=== PATIENT | female | born 1955 | race Caucasian/White ===

== ENCOUNTER → 2018-02-28 16:24 | Outpatient (CLI) | payer OTHER, SELFPAY ==
--- NOTE | 2018-02-28 16:28 | DI.US.S_ITS ---
PROCEDURE: US ABDOMEN COMPLETE INDICATIONS: ABDOMINAL PAIN TECHNIQUE: Real-time scanning was performed of the abdominal and retroperitoneal organs, with image documentation. COMPARISON: [facility], CT, CT ABD PELVIS W CON, 09/23/2016, 13:20. FINDINGS: Liver: Liver is diffusely increased in echogenicity. No focal hepatic abnormalities identified. Normal hepatic size. Gallbladder: Gallbladder surgically absent. Biliary ducts: Intrahepatic bile ducts are non-dilated. Extrahepatic bile duct caliber measures 1.1 mm. Normal is 6-7 mm or less in diameter, or 10 mm or less post-cholecystectomy. Pancreas: Visualized portions of the pancreas are sonographically normal. Spleen: Spleen is normal in size and homogeneous in echotexture. Kidneys: Kidneys are normal in size and echotexture. Right kidney measures 11.1 cm long; left kidney measures 11.2 cm long. No hydronephrosis or nephrolithiasis. No solid masses. Aorta: Not visualized. [place]: Not visualized. IVC: Not visualized. Miscellaneous: No free abdominal fluid. IMPRESSION: 1. Increased hepatic echogenicity noted possibly related to hepatic steatosis but other sources of hepatocellular disease cannot be excluded. Recommend clinical correlation. 2. No source for abdominal pain identified. Dictated by: Paco KELLY Interpreted: Apryl Sexton MD on 02/28/2018 at 17:05 Approved by: Apryl Sexton MD, PhD on 02/28/2018 at 17:37
== END ==
PROVIDERS: Family Provider Family Medicine; PCP Family Medicine; Visit Provider Family Medicine
DX: R10.9 Unspecified abdominal pain (principal)
CPT/HCPCS: 76700

== ENCOUNTER → 2020-10-05 10:34 | Outpatient (ROUT) | payer OTHER, SELFPAY ==
[2020-10-05 10:43] LABS: INR 1.6 (0.9-1.3); Prothrombin Time 18.7 SECONDS (10.1-12.7)
== END ==
PROVIDERS: Visit Provider Family Medicine
DX: I48.91 Unspecified atrial fibrillation (principal)
CPT/HCPCS: 85610

== ENCOUNTER → 2021-12-03 12:39 | Outpatient (CLI) | payer OTHER, SELFPAY ==
--- NOTE | 2021-12-03 | DI.RAD.S_ITS ---
PROCEDURE: XR THORACIC SPINE 3V INDICATIONS: BACK PAIN TECHNIQUE: 3 views of the thoracic spine were acquired. COMPARISON: None. FINDINGS: Bones: No fractures or dislocations. There is [id number] kyphosis centered at T8 level. Degenerative endplate changes are noted throughout mid to lower thoracic spine. No suspicious bony lesions. 12 pairs of ribs are noted, and appear intact where visualized. Soft tissues: No paravertebral stripe thickening. IMPRESSION: Degenerative disc disease throughout thoracic spine with [id number] kyphosis. No acute compression fracture or spondylolisthesis. Prior lower cervical spine fusion. Dictated by: Reynold Barnard M.D. on 12/03/2021 at 14:02 Approved by: Reynold Barnard M.D. on 12/03/2021 at 14:05
--- NOTE | 2021-12-03 | DI.RAD.S_ITS ---
PROCEDURE: XR LUMBAR SPINE 2-3V INDICATIONS: Low back pain, unspecified TECHNIQUE: 3 views of the lumbar spine were acquired. COMPARISON: None. FINDINGS: Bones: 5 [id number] vertebrae are present. There is 5 mm anterolisthesis of L4 on L5. Degenerative endplate changes and bilateral facet arthrosis throughout lumbar spine is seen. No vertebral body compression fractures. No suspicious bony lesions. Soft tissues: Overlying bowel gas pattern is normal. No suspicious soft tissue calcifications. IMPRESSION: Degenerative disc disease throughout lumbar spine. Grade 1 anterolisthesis of L4 on L5. No acute compression fracture. Dictated by: Reynold Barnard M.D. on 12/03/2021 at 13:55 Approved by: Reynold Barnard M.D. on 12/03/2021 at 14:02
== END ==
PROVIDERS: PCP Family Medicine; Referring Provider Family Medicine; Visit Provider Family Medicine
DX: M51.36 Other intervertebral disc degeneration, lumbar region (principal); M43.16 Spondylolisthesis, lumbar region; M51.34 Other intervertebral disc degeneration, thoracic region; M40.204 Unspecified kyphosis, thoracic region; M54.50 Low back pain, unspecified; Z98.1 Arthrodesis status
CPT/HCPCS: 72072; 72100

== ENCOUNTER 2022-05-11 09:27 | Emergency (ER) | payer OTHER, SELFPAY ==
[2022-05-11] VITALS (12 sets, daily range): BP systolic 101–148; BP diastolic 63–79; PULSE 68–98; RESP 18–27; TEMP 36.6; O2SAT 95–97; BMI 36.6
--- NOTE | 2022-05-11 09:33 | DI.RAD.S_ITS ---
PROCEDURE: XR CHEST 2V INDICATIONS: chest / back TECHNIQUE: 2 views of the chest were acquired. COMPARISON: [facility], CR, XR CHEST 1 VIEW, 04/24/2019, 6:06. [facility], CR, CHEST 2 VIEW, 05/30/2017, 15:35. [facility], CR, CHEST 1 VIEW, 01/19/2012, 0:15. FINDINGS: Surgical changes and devices: Median sternotomy wires. Lungs and pleura: Small left pleural effusion. No definite suspicious focal airspace opacity. No pneumothorax. Mediastinum: Cardiac silhouette is mildly enlarged. Bones and chest wall: No suspicious bony abnormalities. Soft tissues appear unremarkable. IMPRESSION: 1. Cardiac silhouette is enlarged without definite evidence of pulmonary vascular congestion. 2. Small left pleural effusion, nonspecific. Dictated by: Mars Rodgers M.D. on 05/11/2022 at 12:58 Approved by: Mars Rodgers M.D. on 05/11/2022 at 13:02
--- NOTE | 2022-05-11 09:50 | ED.BACK ---
HPI - Back Pain/Injury General Chief Complaint: Back Pain/Injury Stated Complaint: Back pain/ chest pain Time Seen by Provider: 05/11/22 09:31 Source: patient History of Present Illness HPI Narrative: 66F nonsmoker with history of HTN, hyperlipidemia, CAD presents by EMS for evaluation of severe and sudden onset mid back pain with radiation to her chest and up into her neck. She states that she was in her normal state of health when she went to bed and even upon waking today but then developed the pain as described. She states that it seems to be worse when she moves and improves with rest but feels different than her normal musculoskeletal back pain which apparently requires a thoracic fusion for degenerative disc disease. She denies associated symptoms such as dizziness, weakness or lightheadedness. She denies any nausea, vomiting or diarrhea. She denies any exertional symptoms or recent exercise intolerance. She denies recent trauma or injury. She denies any blurred vision or trouble with speech. She has no numbness, tingling or weakness of her extremities. She denies any trouble controlling bowel or bladder. Related Data Home Medications Medication Instructions Recorded Confirmed ALPRAZOLAM 0.25 mg PO TID PRN ##0 01/31/10 AMLODIPINE BESYLATE (NORVASC) 10 mg PO HS ##0 01/31/10 Diphenhydramine Hydrochloride PRN ##0 01/31/10 (Benadryl) Metoprolol Tartrate (Lopressor) 50 mg PO BID ##0 01/31/10 OFLOXACIN (Ocuflox) 2 gtt OPHTH Q DAY ##0 01/31/10 lisinopril 5 mg tablet 5 mg PO QDAY ##0 01/18/12 ondansetron 4 mg disintegrating 4 mg PO TID ##0 01/18/12 tablet losartan 50 mg tablet PO QDAY ##0 02/02/16 Previous Rx's Medication Instructions Recorded hydrocodone 5 mg-acetaminophen 325 1 tab PO Q4-6H PRN pain #10 tabs 05/11/22 mg tablet Allergies Allergy/AdvReac Type Severity Reaction Status Date / Time codeine [CODEINE] Allergy Unknown Unverified 10/04/17 13:03 epinephrine [EPINEPHRINE] Allergy Unknown Unverified 10/04/17 13:03 Review of Systems Review of Systems Narrative: GENERAL: See HPI. HEENT: Denies sinus pain, ear pain, sore throat, difficulty swallowing, dizziness. RESPIRATORY: See HPI CARDIOVASCULAR: See HPI GASTROINTESTINAL: See HPI : Denies dysuria, frequency, incontinence, hematuria, urinary retention. MUSCULOSKELETAL: denies weakness, joint pain, or bony pain SKIN: Denies rash, skin lesions, or other NEUROLOGIC: Denies weakness, headache, numbness, change in speech, confusion, seizures, incoordination. PSYCHIATRIC: No concerning psychosocial issues. 12 point review of systems is negative except for those stated above Exam Narrative Exam Narrative: GENERAL: [66] year old patient appears stated age. Well-developed patient, in mild distress. HEAD: Atraumatic. Normocephalic. EYES: Pupils equal round and reactive. Extraocular motions intact. No scleral icterus. No injection or drainage. ENT: Nose without bleeding, purulent drainage. Throat without erythema, tonsillar hypertrophy or exudate. Airway patent. NECK: Trachea midline. Non tender CARDIOVASCULAR: Regular rate and rhythm without murmurs, gallops, or rubs. RESPIRATORY: Clear to auscultation. Breath sounds equal bilaterally. No wheezes, rales, or rhonchi. GASTROINTESTINAL: Abdomen soft, non-tender, nondistended. EXTREMITIES: No edema or joint tenderness. BACK: Nontender without deformity or crepitance. No flank tenderness. NEURO: AOx3. SKIN: No rash or erythema of visible areas Initial Vital Signs Initial Vital Signs: Vital Signs Temperature 97.9 F 05/11/22 09:37 Pulse Rate 98 H 05/11/22 09:37 Respiratory Rate 18 05/11/22 09:37 Blood Pressure 132/73 05/11/22 09:37 Pulse Oximetry 97 05/11/22 09:37 Oxygen Delivery Method 05/11/22 09:37 Course Orders Ordered: ED Orders 05/11/22 09:33 Chest [XR chest 2V] Stat 05/11/22 09:46 Covid-19 + FLU A/B + RSV - PCR Stat 05/11/22 09:50 EKG-12 Lead Stat 05/11/22 09:56 CT angio chest abdomen pelvis Stat 05/11/22 11:05 C-Reactive Protein Quant Stat Complete Blood Count AUTO DIFF Stat Comprehensive Metabolic Panel Stat D Dimer Stat NT-proBNP (BNP-Adult 18+) Stat Troponin & CK Cardiac Panel Stat 05/11/22 13:25 Troponin & CK Cardiac Panel Stat Vital Signs Vital signs: Vital Signs - 8 hr 05/11/22 09:37 05/11/22 09:41 05/11/22 12:39 Temperature 97.9 F Pulse Rate 98 H 86 68 Respiratory Rate 18 25 H 27 H Blood Pressure 132/73 Pulse Oximetry 97 96 97 Oxygen Delivery Method Room Air 05/11/22 12:40 05/11/22 12:40 05/11/22 13:00 Temperature Pulse Rate 75 70 Respiratory Rate 20 19 Blood Pressure 120/65 Pulse Oximetry 97 96 Oxygen Delivery Method 05/11/22 13:01 05/11/22 13:01 05/11/22 13:30 Temperature Pulse Rate 73 77 Respiratory Rate 20 25 H Blood Pressure 101/63 Pulse Oximetry 96 97 Oxygen Delivery Method 05/11/22 13:31 05/11/22 13:31 Temperature Pulse Rate 78 Respiratory Rate 26 H Blood Pressure 148/71 H Pulse Oximetry 97 Oxygen Delivery Method MDM - Back Pain/Injury Lab Data Result diagrams: 05/11/22 11:05 05/11/22 11:05 Labs: Lab Results 05/11/22 05/11/22 05/11/22 Range/Units 09:46 11:05 11:05 WBC 8.3 (4.5-11.0) X10^3/uL RBC 4.32 (4.0-5.2) X10^6/uL Hgb 12.9 (12.0-16.0) g/dL Hct 39.0 (36-46) % MCV 90.1 (80-100) fL MCH 29.7 (26-34) PG MCHC 33.0 (30-36) % RDW 17.5 H (11.6-14.8) % Plt Count 290 (150-400) X10^3/uL Neut % (Auto) 67.9 (50-75) % Lymph % (Auto) 22.7 L (25-40) % [place] % (Auto) 7.4 (3-14) % Eos % (Auto) 1.0 L (2-4) % Baso % (Auto) 1.0 (0-2) % Neut # (Auto) 5600 (3101-6528) /uL Lymph # (Auto) 1900 (8761-1491) /uL [place] # (Auto) 600 (0-900) /uL Eos # (Auto) 100 (0-450) /uL Baso # (Auto) 100 (0-100) /uL D-Dimer 828 H (<500) ng/ml Sodium (137-145) mmol/L Potassium (3.4-5.1) mmol/L Chloride (98-107) mmol/L Carbon Dioxide (22-32) mmol/L BUN (7-17) mg/dL Creatinine (0.52-1.04) mg/dL Estimated GFR (>60) mL/min BUN/Creatinine Ratio (6-22) Glucose (80-110) mg/dL Calcium (8.4-10.2) mg/dL Total Bilirubin (0.2-1.3) mg/dL AST (14-36) IU/L ALT (<35) IU/L Alkaline Phosphatase (38-126) U/L Total Creatine Kinase (30-135) U/L CK-MB (CK-2) CK-MB (CK-2) Rel Index Troponin I (0.01-0.034) ng/mL C-Reactive Protein (<1.0) mg/dL NT-Pro-B Natriuret Pep (<125) pg/mL Total Protein (6.3-8.2) g/dL Albumin (3.5-5.0) g/dL Globulin (1.7-4.1) g/dL Albumin/Globulin Ratio (1.0-2.8) SARS-CoV-2 (PCR) Negative (Negative) Influenza A (RT-PCR) Flu a negative (NEGATIVE) Influenza B (RT-PCR) Flu b negative (NEGATIVE) RSV (PCR) Negative (Negative) 05/11/22 05/11/22 05/11/22 Range/Units 11:05 11:05 13:25 WBC (4.5-11.0) X10^3/uL RBC (4.0-5.2) X10^6/uL Hgb (12.0-16.0) g/dL Hct (36-46) % MCV (80-100) fL MCH (26-34) PG MCHC (30-36) % RDW (11.6-14.8) % Plt Count (150-400) X10^3/uL Neut % (Auto) (50-75) % Lymph % (Auto) (25-40) % [place] % (Auto) (3-14) % Eos % (Auto) (2-4) % Baso % (Auto) (0-2) % Neut # (Auto) (7865-1504) /uL Lymph # (Auto) (8490-6340) /uL [place] # (Auto) (0-900) /uL Eos # (Auto) (0-450) /uL Baso # (Auto) (0-100) /uL D-Dimer (<500) ng/ml Sodium 141 (137-145) mmol/L Potassium 4.1 (3.4-5.1) mmol/L Chloride 104 (98-107) mmol/L Carbon Dioxide 23 (22-32) mmol/L BUN 13 (7-17) mg/dL Creatinine 0.73 (0.52-1.04) mg/dL Estimated GFR > 60 (>60) mL/min BUN/Creatinine Ratio 17.8 (6-22) Glucose 147 H (80-110) mg/dL Calcium 9.1 (8.4-10.2) mg/dL Total Bilirubin 0.7 (0.2-1.3) mg/dL AST 25 (14-36) IU/L ALT 20 (<35) IU/L Alkaline Phosphatase 122 (38-126) U/L Total Creatine Kinase 52 49 (30-135) U/L CK-MB (CK-2) TNP TNP CK-MB (CK-2) Rel Index TNP TNP Troponin I < 0.012 < 0.012 (0.01-0.034) ng/mL C-Reactive Protein 2.0 H (<1.0) mg/dL NT-Pro-B Natriuret Pep 754 H (<125) pg/mL Total Protein 8.4 H (6.3-8.2) g/dL Albumin 4.2 (3.5-5.0) g/dL Globulin 4.2 H (1.7-4.1) g/dL Albumin/Globulin Ratio 1.0 (1.0-2.8) SARS-CoV-2 (PCR) (Negative) Influenza A (RT-PCR) (NEGATIVE) Influenza B (RT-PCR) (NEGATIVE) RSV (PCR) (Negative) Urine Dip Bedside Urine Glucose Negative Bedside Urine Bilirubin - Negative Bedside Urine Ketone - Negative Urine Specific [place] 1.015 Bedside Urine Occult Blood - Negative Bedside Urine pH 6.5 Bedside Urine Protein - Negative Bedside Urine Urobilinogen - Negative Bedside Urine Nitrite - Negative Bedside Urine Leukocytes - Negative Esterase Imaging Data CT scan - chest: Radiologist's Impression: Jessenia Peres??66??F??1955 ? Allergy/Adv: codeine, epinephrine Close Chest/Abdomen/Pelvis CTA (Signed) Jonatan Cox - 05/11/22 Chest X-Ray (Signed) Mars Rodgers - 05/11/22 Thoracic Spine X-Ray (Signed) Reynold Barnard - 12/03/21 Lumbar Spine X-Ray (Signed) Reynold Barnard - 12/03/21 Abdomen Ultrasound (Signed) Apryl Sexton - 02/28/18 [place] [address] CT Scan Report Signed Patient: Jessenia Peres MR#: [id number] : 1955 Acct:[id number] Age/Sex: 66 / F Date of Service: 05/11/22 Loc: ED Accession Number: [id number] ?? Procedure: CT angio chest abdomen pelvis Ordering Provider: Mehdi Mendoza D.O. PROCEDURE:? CT ANGIO CHEST ABDOMEN PELVIS ? INDICATIONS:? severe chest, back pain, radiation to neck ? TECHNIQUE:? Precontrast 5 mm thick sections acquired from the lung apices to the iliac crests.? After the administration of intravenous contrast, 2.5 mm thick sections again acquired from the lung apices to the iliac crests.? Maximum intensity projection (MIP) oblique sagittal and coronal reformats were then acquired.? For radiation dose reduction, the following was used:? automated exposure control.? ? COMPARISON:? [facility], CT, CT ANGIO CHEST PE, 06/15/2018, 13:14. ? FINDINGS:? Image quality:? Excellent.? ? AORTA:? There is severe plaque within the abdominal aorta causing mild diffuse stenosis.? No aneurysm, or dissection. ? CHEST:? Lungs and pleura:? There is mild left greater than right bibasilar ground-glass and reticulonodular pulmonary opacity.? No pneumothorax.? Small left pleural effusion.? Central and peripheral airways are patent and normal in caliber.? ? Mediastinum:? Heart size is normal.? Severe calcification of the coronary vasculature.? No pericardial effusion.? No mediastinal or hilar adenopathy by size criteria.? Central pulmonary arteries are normal in size.? Esophagus is normal in caliber.? No hiatal hernias.? ? Bones and chest wall:? No axillary adenopathy by size criteria.? Thyroid gland is within normal limits .? No suspicious bony lesions.? No vertebral body compression fractures.? ? ? ABDOMEN:? Vasculature:? Celiac trunk and mesenteric arteries are patent.? Renal arteries are also patent.? ? Solid organs:? Liver is normal in size and enhancement.? Gallbladder is surgically absent .? Biliary system is non dilated.? Pancreas enhances normally.? Spleen is normal in size and enhancement.? No adrenal nodules.? Both kidneys are normal in size and enhancement, without hydronephrosis.? ? Peritoneum and bowel:? No free fluid or air.? Bowel loops are normal in caliber and wall thickness.? Normal appendix. ? Nodes and vessels:? No retroperitoneal or mesenteric adenopathy by size criteria.? Inferior vena cava is normal in morphology.? ? Miscellaneous:? No ventral hernias.? ? ? PELVIS:? Genitourinary:? Bladder wall thickness is normal.? ? Miscellaneous:? No inguinal hernias or adenopathy.? No ventral hernias.? ? Bones:? No suspicious bony lesions.? No vertebral body compression fractures.? ? ? IMPRESSION:? 1. No acute process involving the thoracoabdominal aorta. 2. Left greater than right bibasilar atelectasis versus pneumonia.? Small left pleural effusion. 3. Coronary artery disease. ? Dictated by: Jonatan Cox M.D. on 05/11/2022 at 13:02 ? ? Approved by: Jonatan Cox M.D. on 05/11/2022 at 13:06 ? MDM Narrative Medical decision making narrative: Multiple etiologies for patient's symptoms considered including: [Musculoskeletal pain versus dissection versus pulmonary embolism versus cardiac ischemia versus other Multiple causes of chest pain considered including ME, PE, pneumothorax, pneumonia, aortic dissection, and pleurisy. Patient reports no radiation, no diaphoresis, no provocation with exertion, and no vomiting] Patient's symptoms improved over duration of stay with above-stated therapies. Findings and discharge diagnosis discussed with patient/family followed by verbalization of understanding Return precautions discussed with patient/family whom verbalize understanding. Discharge Plan Departure Patient Disposition: Home Clinical Impression: Mid back pain Instructions: DI for Thoracic Back Pain Activity Restrictions/Additional Instructions: *You have been diagnosed with [midthoracic back pain. As we discussed your history and physical exam as well as labs and imaging are very reassuring and there is no evidence of heart attack, blood clot, dissection of your blood vessels or other significant diagnosis requiring a specific immediate intervention] *What to do: *Please continue to take your regular medications as directed. [x ] New medication prescriptions sent to your pharmacy: [ [facility] in [place]] [ ] New medication written as a paper prescription [ ] No new medications given *Please follow up with your primary care provider in 2-3 days, call for an appointment. Let them know you were seen in the Emergency Department and that we ask that you be seen in follow up. We will electronically transmit a record of today's note if your PCP is in our system *Return to Emergency Department if you should have any new, worsening or concerning symptoms, such as [fever greater than 101 F, shaking chills, worsening pain, persistent vomiting or other bothersome symptoms] You have been prescribed a short course of narcotic medications. These are potentially dangerous and addictive medications that should be used carefully. While on these medications you cannot drive or operate heavy machinery. Additionally, you cannot sign legal documents or perform any duties such as this. 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 Please understand that we cannot provide further refills of narcotics or controlled substances through the ED and your pain management will need to be through your Primary Care Provider Prescriptions: New hydrocodone-acetaminophen 5-325 mg tablet 1 tab PO Q4-6H PRN (Reason: pain) Qty: 10 0RF No Action ALPRAZOLAM 0.25 mg PO TID PRN Qty: 0 AMLODIPINE BESYLATE (NORVASC) 10 mg PO HS Qty: 0 Diphenhydramine Hydrochloride (Benadryl) PRN Qty: 0 Metoprolol Tartrate (Lopressor) 50 mg PO BID Qty: 0 OFLOXACIN (Ocuflox) 2 gtt OPHTH Q DAY Qty: 0 lisinopril 5 MG tablet 5 mg PO QDAY Qty: 0 ondansetron 4 MG tablet,disintegrating 4 mg PO TID Qty: 0 losartan 50 mg tablet PO QDAY Qty: 0 Referrals: Evelio Matos MD [Primary Care Provider] -
--- NOTE | 2022-05-11 09:56 | DI.CT.S_ITS ---
PROCEDURE: CT ANGIO CHEST ABDOMEN PELVIS INDICATIONS: severe chest, back pain, radiation to neck TECHNIQUE: Precontrast 5 mm thick sections acquired from the lung apices to the iliac crests. After the administration of intravenous contrast, 2.5 mm thick sections again acquired from the lung apices to the iliac crests. Maximum intensity projection (MIP) oblique sagittal and coronal reformats were then acquired. For radiation dose reduction, the following was used: automated exposure control. COMPARISON: [facility], CT, CT ANGIO CHEST PE, 06/15/2018, 13:14. FINDINGS: Image quality: Excellent. AORTA: There is severe plaque within the abdominal aorta causing mild diffuse stenosis. No aneurysm, or dissection. CHEST: Lungs and pleura: There is mild left greater than right bibasilar ground-glass and reticulonodular pulmonary opacity. No pneumothorax. Small left pleural effusion. Central and peripheral airways are patent and normal in caliber. Mediastinum: Heart size is normal. Severe calcification of the coronary vasculature. No pericardial effusion. No mediastinal or hilar adenopathy by size criteria. Central pulmonary arteries are normal in size. Esophagus is normal in caliber. No hiatal hernias. Bones and chest wall: No axillary adenopathy by size criteria. Thyroid gland is within normal limits . No suspicious bony lesions. No vertebral body compression fractures. ABDOMEN: Vasculature: Celiac trunk and mesenteric arteries are patent. Renal arteries are also patent. Solid organs: Liver is normal in size and enhancement. Gallbladder is surgically absent . Biliary system is non dilated. Pancreas enhances normally. Spleen is normal in size and enhancement. No adrenal nodules. Both kidneys are normal in size and enhancement, without hydronephrosis. Peritoneum and bowel: No free fluid or air. Bowel loops are normal in caliber and wall thickness. Normal appendix. Nodes and vessels: No retroperitoneal or mesenteric adenopathy by size criteria. Inferior vena cava is normal in morphology. Miscellaneous: No ventral hernias. PELVIS: Genitourinary: Bladder wall thickness is normal. Miscellaneous: No inguinal hernias or adenopathy. No ventral hernias. Bones: No suspicious bony lesions. No vertebral body compression fractures. IMPRESSION: 1. No acute process involving the thoracoabdominal aorta. 2. Left greater than right bibasilar atelectasis versus pneumonia. Small left pleural effusion. 3. Coronary artery disease. Dictated by: Jonatan Cox M.D. on 05/11/2022 at 13:02 Approved by: Jonatan Cox M.D. on 05/11/2022 at 13:06
[2022-05-11 11:08] LABS: Add Manual Diff / Slide Review NO; Basophils Absolute Auto 100 /uL (0-100); Eosinophils Absolute Auto 100 /uL (0-450); Hemoglobin 12.9 g/dL (12.0-16.0); Lymphocytes Absolute Auto 1900 /uL (1100-4500); Lymphocytes Percent Auto 22.7 % (25-40); Mean Corpuscular Hemoglobin 29.7 PG (26-34); Mean Corpuscular Volume 90.1 fL (80-100); Monocytes Absolute Auto 600 /uL (0-900); Monocytes Percent Auto 7.4 % (3-14); Neutrophils Absolute Auto 5600 /uL (1500-7000); Neutrophils Percent Auto 67.9 % (50-75); Platelet Count 290 X10^3/uL (150-400); Red Blood Cell Count 4.32 X10^6/uL (4.0-5.2); Red Cell Distribution Width 17.5 % (11.6-14.8); White Blood Cell Count 8.3 X10^3/uL (4.5-11.0)
[2022-05-11 11:10] LABS: Influenza A - CEPHEID Flu A NEGATIVE (NEGATIVE); Influenza B - CEPHEID Flu B NEGATIVE (NEGATIVE); Respiratory Syncytial Virus Negative (Negative)
[2022-05-11 11:11] LABS: COVID-19 CEPHEID 4-PLEX PCR Negative (Negative)
[2022-05-11 11:49] LABS: D Dimer 828 ng/ml (<500)
[2022-05-11 11:53] LABS: Creatine Kinase 52 U/L (30-135)
[2022-05-11 11:55] LABS: Alanine Aminotransferase 20 IU/L (<35); Albumin 4.2 g/dL (3.5-5.0); Alkaline Phosphatase 122 U/L (38-126); Aspartate Aminotransferase 25 IU/L (14-36); BUN Creatinine Ratio 17.8 (6-22); Bilirubin Total 0.7 mg/dL (0.2-1.3); Blood Urea Nitrogen 13 mg/dL (7-17); Calcium 9.1 mg/dL (8.4-10.2); Carbon Dioxide 23 mmol/L (22-32); Chloride 104 mmol/L (98-107); Estimated Glomerular Filt Rate > 60 mL/min (>60); Globulin 4.2 g/dL (1.7-4.1); Glucose 147 mg/dL (80-110); HEMOLYSIS 21 (0-50); Potassium 4.1 mmol/L (3.4-5.1); Sodium 141 mmol/L (137-145); Total Protein 8.4 g/dL (6.3-8.2)
[2022-05-11 12:02] LABS: NT-proBNP (BNP-Adult 18+) 754 pg/mL (<125)
[2022-05-11 12:05] LABS: Troponin I < 0.012 ng/mL (0.01-0.034)
[2022-05-11 13:46] LABS: Creatine Kinase 49 U/L (30-135)
[2022-05-11 13:57] LABS: Troponin I < 0.012 ng/mL (0.01-0.034)
== END 2022-05-11 15:00 | disposition home or self-care (01) ==
PROVIDERS: Emergency Provider Emergency Medicine; PCP Family Medicine
DX: M54.6 Pain in thoracic spine (principal); R07.9 Chest pain, unspecified; Z20.822 Contact with and (suspected) exposure to COVID-19
CPT/HCPCS: 0241U; 36415; 71046; 71275; 74174; 80053; 81003; 82550; 83880; 84484; 85025; 85379; 86140; 93005; 99284; Q9967

== ENCOUNTER 2022-06-04 15:49 | Emergency (ER) | payer OTHER, SELFPAY ==
[2022-06-04 16:06] VITALS: BP 178/77; PULSE 80; RESP 16; TEMP 37.2; O2SAT 93; BMI 42.0
[2022-06-04 16:51] LABS: Influenza A - CEPHEID Flu A NEGATIVE (NEGATIVE); Influenza B - CEPHEID Flu B NEGATIVE (NEGATIVE); Respiratory Syncytial Virus Negative (Negative)
[2022-06-04 16:52] LABS: COVID-19 CEPHEID 4-PLEX PCR Negative (Negative)
--- NOTE | 2022-06-04 18:20 | DI.RAD.S_ITS ---
PROCEDURE: XR CHEST 2V INDICATIONS: URI TECHNIQUE: 2 views of the chest were acquired. COMPARISON: [facility], CR, XR CHEST 2V, 05/11/2022, 12:19. FINDINGS: Surgical changes and devices: Median sternotomy wires. Anterior cervical fusion hardware partially imaged. Lungs and pleura: Bilateral perihilar peribronchial thickening. No dense consolidation, effusion, or pneumothorax. Mediastinum: Mediastinal contours are normal. Heart size is normal. No significant central venous congestion. Bones and chest wall: No suspicious bony abnormalities. Soft tissues appear unremarkable. IMPRESSION: 1. Findings suggestive of bronchitis and/or reactive airways disease. Dictated by: Merle Armstrong M.D. on 06/04/2022 at 18:46 Approved by: Merle Armstrong M.D. on 06/04/2022 at 18:48
[2022-06-04 19:08] VITALS: PULSE 88; RESP 20; O2SAT 94
[2022-06-04] MEDS: ALBUTEROL/IPRATROPIUM 3 ML AMPUL INH (19:08)
[2022-06-04 19:35] VITALS: PULSE 109; RESP 18; O2SAT 97
--- NOTE | 2022-06-04 21:33 | ED_ITS ---
HPI - URI/Sore Throat <Kiah Anguiano PA-C - Last Filed: 06/04/22 21:40> General Chief Complaint: Upper Respiratory Symptoms Stated Complaint: Flu-like sx Source: patient Mode of arrival: EMS History of Present Illness HPI Narrative: Patient is 66 years old female with extensive cardiac history, status post CABG, atrial fibrillation, who has been experiencing upper respiratory symptoms, congestion cough and 2 days ago his symptoms become especially worse, she noted she is gasping for air, having frequent cough fatigue, and wheezing. She denies fever chills however she is concerned with her shortness breath it brings back her memory of her cardiac arrest, her heart rate is fluctuating. Patient is diabetic, states her sugar has been in higher range than usually. She denies fever chills, she does have productive cough bringing yellow-green sputum. Related Data Home Medications Medication Instructions Recorded Confirmed ALPRAZOLAM 0.25 mg PO TID PRN ##0 01/31/10 AMLODIPINE BESYLATE (NORVASC) 10 mg PO HS ##0 01/31/10 Diphenhydramine Hydrochloride PRN ##0 01/31/10 (Benadryl) Metoprolol Tartrate (Lopressor) 50 mg PO BID ##0 01/31/10 OFLOXACIN (Ocuflox) 2 gtt OPHTH Q DAY ##0 01/31/10 lisinopril 5 mg tablet 5 mg PO QDAY ##0 01/18/12 ondansetron 4 mg disintegrating 4 mg PO TID ##0 01/18/12 tablet losartan 50 mg tablet PO QDAY ##0 02/02/16 Previous Rx's Medication Instructions Recorded hydrocodone 5 mg-acetaminophen 325 1 tab PO Q4-6H PRN pain #10 tabs 05/11/22 mg tablet azithromycin 250 mg tablet See Rx Instructions PO .COMPLEX #6 06/04/22 tabs fluticasone propionate 45 2 puff inhalation BID 30 days #12 06/04/22 mcg-salmeterol 21 mcg/actuation grams HFA inhaler (Advair HFA) Allergies Allergy/AdvReac Type Severity Reaction Status Date / Time codeine [CODEINE] Allergy Unknown Unverified 10/04/17 13:03 epinephrine [EPINEPHRINE] Allergy Unknown Unverified 10/04/17 13:03 Review of Systems <Kiah Anguiano PA-C - Last Filed: 06/04/22 21:40> Review of Systems Narrative: GENERAL: Admits to chills, fatigue, malaise, fever, sweats. HEENT: Denies sinus pain, ear pain, sore throat, difficulty swallowing, dizziness. RESPIRATORY: Admits to dyspnea, cough, wheezing, denies hemoptysis, admits to yellow-green sputum. CARDIOVASCULAR: Denies chest pain, per se however admits to palpitations, and some orthopnea, denies leg edema, GASTROINTESTINAL: Denies nausea, vomiting, abdominal pain, diarrhea, constipation, melena. Admits to poor appetite : Denies dysuria, frequency, incontinence, hematuria, urinary retention. MUSCULOSKELETAL: denies weakness, joint pain, or bony pain SKIN: Denies rash, skin lesions, or other NEUROLOGIC: Denies weakness, headache, numbness, change in speech, confusion, seizures, incoordination. PSYCHIATRIC: Admits, anxious about her declining health. Patient History <Kiah Anguiano PA-C - Last Filed: 06/04/22 21:40> Social History Smoking Status: Never smoker Smoking Status: Never smoker Exam <Kiah Anguiano PA-C - Last Filed: 06/04/22 21:40> Narrative Exam Narrative: GENERAL: 66 year old patient appears stated age. Well-developed patient, in mild distress mostly emotional. HEAD: Atraumatic. Normocephalic. EYES: Pupils equal round and reactive. Extraocular motions intact. No scleral icterus. No injection or drainage. ENT: Nose without bleeding, purulent drainage. Throat without erythema, tonsillar hypertrophy or exudate. Airway patent. NECK: Trachea midline. Non tender CARDIOVASCULAR: Irregular rate and rhythm consistent with AFib without murmurs, gallops, or rubs. RESPIRATORY: Scattered wheezes, rales, and rhonchi, not cleared with cough GASTROINTESTINAL: Abdomen soft, non-tender, nondistended. EXTREMITIES: No edema or joint tenderness. BACK: Nontender without deformity or crepitance. No flank tenderness. NEURO: AOx3. No focal deficits SKIN: No rash or erythema of visible areas Initial Vital Signs Initial Vital Signs: Vital Signs Temperature 99.0 F 06/04/22 16:06 Pulse Rate 80 06/04/22 16:06 Respiratory Rate 16 06/04/22 16:06 Blood Pressure 178/77 H 06/04/22 16:06 Pulse Oximetry 93 06/04/22 16:06 Oxygen Delivery Method 06/04/22 16:06 <Aníbal Dickey DO - Last Filed: 06/05/22 07:12> Initial Vital Signs Initial Vital Signs: Vital Signs Temperature 99.0 F 06/04/22 16:06 Pulse Rate 80 06/04/22 16:06 Respiratory Rate 16 06/04/22 16:06 Blood Pressure 178/77 H 06/04/22 16:06 Pulse Oximetry 93 06/04/22 16:06 Oxygen Delivery Method 06/04/22 16:06 Course <JENNI Bahena Last Filed: 06/04/22 21:40> Orders Ordered: Discontinued Medications Albuterol/Ipratropium (Albuterol/Ipratropium 3 Ml Ampul) 3 ml INH NOW ONE Stop: 06/04/22 18:34 Last Admin: 06/04/22 19:08 Dose: 3 ml Documented By: SAT Vital Signs Vital signs: Vital Signs - 8 hr 06/04/22 16:06 06/04/22 19:08 06/04/22 19:35 Temperature 99.0 F Pulse Rate 80 88 109 H Respiratory Rate 16 20 18 Blood Pressure 178/77 H Pulse Oximetry 93 94 97 Oxygen Delivery Method Room Air Room Air Room Air <DO Arlene Costa Last Filed: 06/05/22 07:12> Orders Ordered: Discontinued Medications Albuterol/Ipratropium (Albuterol/Ipratropium 3 Ml Ampul) 3 ml INH NOW ONE Stop: 06/04/22 18:34 Last Admin: 06/04/22 19:08 Dose: 3 ml Documented By: SAT Vital Signs Vital signs: Vital Signs - 8 hr 06/04/22 16:06 06/04/22 19:08 06/04/22 19:35 Temperature 99.0 F Pulse Rate 80 88 109 H Respiratory Rate 16 20 18 Blood Pressure 178/77 H Pulse Oximetry 93 94 97 Oxygen Delivery Method Room Air Room Air Room Air MDM - URI/Sore Throat <JENNI Bahena Last Filed: 06/04/22 21:40> Lab Data Labs: Lab Results 06/04/22 Range/Units 16:05 SARS-CoV-2 (PCR) Negative (Negative) Influenza A (RT-PCR) Flu a negative (NEGATIVE) Influenza B (RT-PCR) Flu b negative (NEGATIVE) RSV (PCR) Negative (Negative) Imaging Data Chest x-ray: Radiologist's Impression: ? 1. Findings suggestive of bronchitis and/or reactive airways disease.? ? MDM Narrative Medical decision making narrative: Discussed with patient etiologies responsible for patient's symptoms considered including: Viral illness, acute bronchitis Patient's symptoms improved over duration of stay with respiratory inhalation therapies. Findings and discharge diagnosis discussed with patient/family followed by verbalization of understanding Return precautions discussed with patient/family whom verbalize understanding. <Aníbal Dickey DO - Last Filed: 06/05/22 07:12> Lab Data Labs: Lab Results 06/04/22 Range/Units 16:05 SARS-CoV-2 (PCR) Negative (Negative) Influenza A (RT-PCR) Flu a negative (NEGATIVE) Influenza B (RT-PCR) Flu b negative (NEGATIVE) RSV (PCR) Negative (Negative) Discharge Plan Departure Patient Disposition: Home Clinical Impression: Acute bronchiolitis with bronchospasm Instructions: Acute Bronchitis Activity Restrictions/Additional Instructions: *You have been diagnosed with acute bronchitis with bronchospasm *What to do: *Please continue to take your regular medications as directed. New medication prescriptions sent to your pharmacy: azithromax advair MDI inhaler *Please follow up with your primary care provider in 2-3 days, call for an appointment. Let them know you were seen in the Emergency Department and that we ask that you be seen in follow up. We will electronically transmit a record of today's note if your PCP is in our system *Return to Emergency Department if you should have any new, worsening or concerning symptoms, such as fever greater than 101 F, shaking chills, worsening pain, shortness of breath or other bothersome symptoms Prescriptions: New azithromycin 250 mg tablet See Rx Instructions .ROUTE .COMPLEX Qty: 6 0RF Rx Instructions: For 250 mg dose pack: take 500 mg today (day 1), then 250 mg for 4 days (days 2-5) Advair HFA 45-21 mcg/actuation HFA aerosol inhaler 2 puff inhalation BID 30 Days Qty: 12 0RF No Action ALPRAZOLAM 0.25 mg PO TID PRN Qty: 0 AMLODIPINE BESYLATE (NORVASC) 10 mg PO HS Qty: 0 Diphenhydramine Hydrochloride (Benadryl) PRN Qty: 0 Metoprolol Tartrate (Lopressor) 50 mg PO BID Qty: 0 OFLOXACIN (Ocuflox) 2 gtt OPHTH Q DAY Qty: 0 lisinopril 5 MG tablet 5 mg PO QDAY Qty: 0 ondansetron 4 MG tablet,disintegrating 4 mg PO TID Qty: 0 losartan 50 mg tablet PO QDAY Qty: 0 hydrocodone-acetaminophen 5-325 mg tablet 1 tab PO Q4-6H PRN (Reason: pain) Qty: 10 0RF Referrals: Evelio Matos MD [Primary Care Provider] - Visit Report Forms: Patient Portal/API <Aníbal Dickey DO - Last Filed: 06/05/22 07:12> [facility]: Dr Dickey Co-Sign Statement: I was available for consultation during this patient's emergency department visit. This chart is signed by myself for administrative purposes only. I did not have direct contact with this patient during this visit. They were seen independently by the APC.
== END 2022-06-04 19:35 | disposition home or self-care (01) ==
PROVIDERS: Emergency Provider Physician Assistant Medical; PCP Family Medicine
DX: J21.9 Acute bronchiolitis, unspecified (principal)
CPT/HCPCS: 0241U; 71046; 93005; 94640; 99283

== ENCOUNTER 2023-03-07 07:55 | Emergency (ER) | payer OTHER, SELFPAY ==
[2023-03-07] VITALS (23 sets, daily range): BP systolic 77–155; BP diastolic 38–99; PULSE 93–141; RESP 14–26; TEMP 36.7; O2SAT 95–98; BMI 36.6
--- NOTE | 2023-03-07 08:21 | DI.RAD.S_ITS ---
PROCEDURE: XR CHEST 1V INDICATIONS: chest pain TECHNIQUE: One view of the chest was acquired. COMPARISON: [facility], CR, XR CHEST 2V, 06/04/2022, 18:27. FINDINGS: Surgical changes and devices: ACDF. Post median sternotomy and CABG. Lungs and pleura: Lungs are clear. No pleural effusions or pneumothorax. Mediastinum: Mediastinal contours appear normal. Heart size is normal. Bones and chest wall: No suspicious bony lesions. Overlying soft tissues appear unremarkable. IMPRESSION: No acute cardiopulmonary abnormality. Dictated by: Kirill Lanier M.D. on 03/07/2023 at 9:35 Approved by: Kirill Lanier M.D. on 03/07/2023 at 9:36
--- NOTE | 2023-03-07 08:23 | ED_ITS ---
HPI - Arrhythmia/Palpitations General Chief Complaint: Arrhythmia/Palpitations Stated Complaint: Afib/SOB Time Seen by Provider: 03/07/23 08:22 Source: patient Mode of arrival: Ambulatory History of Present Illness HPI narrative: Patient is a 67-year-old female history of CABG, paroxysmal atrial fibrillation presenting today with AFib. She reports that she went to bed last night and felt her normal self however this morning woke up and fluttering in her chest. She was feeling a little short of breath she tried an inhaler as well and tried to eat eggs to help her brerathing. She reports that she has had paroxysmal AFib CABG surgery. She has previously been tried on multiple anticoagulation medication but reports that they make her stomach hurt so she takes green tea supplements 3 times daily. She is currently in AFib with RVR heart rate 120s. Not having significant shortness of breath but still feels fluttering in her [address] Related Data Home Medications Medication Instructions Recorded Confirmed ALPRAZOLAM 0.25 mg PO TID PRN ##0 01/31/10 AMLODIPINE BESYLATE (NORVASC) 10 mg PO HS ##0 01/31/10 Diphenhydramine Hydrochloride PRN ##0 01/31/10 (Benadryl) Metoprolol Tartrate (Lopressor) 50 mg PO BID ##0 01/31/10 OFLOXACIN (Ocuflox) 2 gtt OPHTH Q DAY ##0 01/31/10 lisinopril 5 mg tablet 5 mg PO QDAY ##0 01/18/12 ondansetron 4 mg disintegrating 4 mg PO TID ##0 01/18/12 tablet losartan 50 mg tablet PO QDAY ##0 02/02/16 Previous Rx's Medication Instructions Recorded hydrocodone 5 mg-acetaminophen 325 1 tab PO Q4-6H PRN pain #10 tabs 05/11/22 mg tablet azithromycin 250 mg tablet See Rx Instructions PO .COMPLEX #6 06/04/22 tabs albuterol sulfate 90 mcg/actuation 2 puff inhalation Q4-6H PRN 06/05/22 aerosol inhaler shortness of breath or wheezing #8.5 grams Allergies Allergy/AdvReac Type Severity Reaction Status Date / Time codeine [CODEINE] Allergy Unknown Verified 03/07/23 08:34 epinephrine [EPINEPHRINE] Allergy Unknown Verified 03/07/23 08:34 lisinopril Allergy Unknown Verified 03/07/23 08:34 Review of Systems Review of Systems ROS Unobtainable: All systems reviewed & are unremarkable except as noted in HPI and below Patient History Social History Smoking Status: Never smoker Smoking Status: Never smoker alcohol intake frequency: a few times a week Alcohol type: wine Substance Use Type: does not use Exam Initial Vital Signs Initial Vital Signs: Vital Signs Pulse Rate 138 H 03/07/23 08:03 Respiratory Rate 20 03/07/23 08:03 Blood Pressure 138/96 H 03/07/23 08:03 Pulse Oximetry 98 03/07/23 08:03 GENERAL: Alert well-appearing 67-year-old female HEENT: Head atraumatic,EOMI, pupils reactive, face symmetric, moist mucous membranes CARDIOVASCULAR: Irregularly irregular RESPIRATORY: Breath sounds equal bilaterally, no wheezes rales or rhonchi. ABDOMEN: Soft, nontender. Normoactive bowel sounds all 4 quadrants. No guarding or rebound. EXTREMITIES: Normal range of motion, no clubbing or edema. Neurovascularly intact NEUROLOGICAL: Alert and oriented x4. SKIN: Warm, dry, no laceration, no petechiae, no rashes or lesions. Course Orders Ordered: ED Orders 03/07/23 10:15 Trop I [Troponin I] Stat 03/07/23 10:38 Urinalysis and Microscopic Stat Discontinued Medications Aspirin (Aspirin 81 Mg Chew Tab) 324 mg PO NOW ONE Stop: 03/07/23 08:22 Last Admin: 03/07/23 08:35 Dose: 243 mg Documented By: AMV Diltiazem HCl (Diltiazem 5 Mg/Ml Sdv) 10 mg IV NOW ONE Stop: 03/07/23 08:23 Last Admin: 03/07/23 08:35 Dose: 10 mg Documented By: AMV Diltiazem HCl (Diltiazem Sr 60 Mg) 60 mg PO NOW ONE Stop: 03/07/23 11:57 Last Admin: 03/07/23 12:08 Dose: 60 mg Documented By: AMV Furosemide (Furosemide 40 Mg/4 Ml Vial) 20 mg IV NOW ONE Stop: 03/07/23 11:57 Last Admin: 03/07/23 12:08 Dose: 20 mg Documented By: AMV Vital Signs Vital signs: Vital Signs - 8 hr 03/07/23 11:15 03/07/23 11:15 03/07/23 11:30 Pulse Rate 96 H Respiratory Rate 20 Blood Pressure 139/81 142/75 H Pulse Oximetry 95 Oxygen Delivery Method 03/07/23 11:30 03/07/23 11:46 03/07/23 12:01 Pulse Rate 104 H 130 H 113 H Respiratory Rate 20 23 24 Blood Pressure 136/99 H 155/66 H Pulse Oximetry 97 96 97 Oxygen Delivery Method Room Air Room Air MDM - Arrhythmia/Palpitations Lab Data 03/07/23 08:05 03/07/23 08:05 Labs: Lab Results 03/07/23 03/07/23 03/07/23 Range/Units 08:05 08:05 08:05 WBC 9.2 (4.5-11.0) X10^3/uL RBC 4.17 (4.0-5.2) X10^6/uL Hgb 12.3 (12.0-16.0) g/dL Hct 36.8 (36-46) % MCV 88.3 (80-100) fL MCH 29.6 (26-34) PG MCHC 33.5 (30-36) % RDW 16.6 H (11.6-14.8) % Plt Count 331 (150-400) X10^3/uL Neut % (Auto) 68.1 (50-75) % Lymph % (Auto) 22.3 L (25-40) % [place] % (Auto) 7.4 (3-14) % Eos % (Auto) 1.0 L (2-4) % Baso % (Auto) 1.2 (0-2) % Neut # (Auto) 6300 (9736-1865) /uL Lymph # (Auto) 2100 (1798-9765) /uL [place] # (Auto) 700 (0-900) /uL Eos # (Auto) 100 (0-450) /uL Baso # (Auto) 100 (0-100) /uL PT 11.3 (10.1-12.7) SECONDS INR 1.0 (0.9-1.3) APTT 30 (26-36) SECONDS Sodium 138 (137-145) mmol/L Potassium 3.6 (3.4-5.1) mmol/L Chloride 100 (98-107) mmol/L Carbon Dioxide 27 (22-32) mmol/L BUN 14 (7-17) mg/dL Creatinine 0.68 (0.52-1.04) mg/dL Estimated GFR > 60 (>60) mL/min BUN/Creatinine Ratio 20.6 (6-22) Glucose 199 H (80-110) mg/dL Calcium 9.1 (8.4-10.2) mg/dL Magnesium 2.5 H (1.6-2.3) mg/dL Total Bilirubin 0.8 (0.2-1.3) mg/dL AST 36 (14-36) IU/L ALT 27 (<35) IU/L Alkaline Phosphatase 155 H (38-126) U/L Total Creatine Kinase 104 (30-135) U/L Troponin I < 0.012 (0.01-0.034) ng/mL NT-Pro-B Natriuret Pep (<125) pg/mL Total Protein 8.5 H (6.3-8.2) g/dL Albumin 4.3 (3.5-5.0) g/dL Globulin 4.2 H (1.7-4.1) g/dL Albumin/Globulin Ratio 1.0 (1.0-2.8) Lipase 117 (23-300) U/L Urine Color Urine Appearance Urine pH (4.5-8.0) Ur Specific [place] (1.000-1.035) Urine Protein (Negative) Urine Glucose (UA) (Negative) g/dL Urine Ketones (NEGATIVE) Urine Occult Blood (Negative) Urine Nitrate (Negative) Urine Bilirubin (NEGATIVE) Urine Urobilinogen (0.2) E.U./dL Ur Leukocyte Esterase (NEGATIVE) Urine RBC (0-5/HPF) Urine WBC (0-5/HPF) Ur Squamous Epith Cells (0-5/HPF) Urine Bacteria (None) Ur Culture Indicated? 03/07/23 03/07/23 03/07/23 Range/Units 08:05 10:15 10:38 WBC (4.5-11.0) X10^3/uL RBC (4.0-5.2) X10^6/uL Hgb (12.0-16.0) g/dL Hct (36-46) % MCV (80-100) fL MCH (26-34) PG MCHC (30-36) % RDW (11.6-14.8) % Plt Count (150-400) X10^3/uL Neut % (Auto) (50-75) % Lymph % (Auto) (25-40) % [place] % (Auto) (3-14) % Eos % (Auto) (2-4) % Baso % (Auto) (0-2) % Neut # (Auto) (5570-4975) /uL Lymph # (Auto) (8112-7989) /uL [place] # (Auto) (0-900) /uL Eos # (Auto) (0-450) /uL Baso # (Auto) (0-100) /uL PT (10.1-12.7) SECONDS INR (0.9-1.3) APTT (26-36) SECONDS Sodium (137-145) mmol/L Potassium (3.4-5.1) mmol/L Chloride (98-107) mmol/L Carbon Dioxide (22-32) mmol/L BUN (7-17) mg/dL Creatinine (0.52-1.04) mg/dL Estimated GFR (>60) mL/min BUN/Creatinine Ratio (6-22) Glucose (80-110) mg/dL Calcium (8.4-10.2) mg/dL Magnesium (1.6-2.3) mg/dL Total Bilirubin (0.2-1.3) mg/dL AST (14-36) IU/L ALT (<35) IU/L Alkaline Phosphatase (38-126) U/L Total Creatine Kinase (30-135) U/L Troponin I < 0.012 (0.01-0.034) ng/mL NT-Pro-B Natriuret Pep 460 H (<125) pg/mL Total Protein (6.3-8.2) g/dL Albumin (3.5-5.0) g/dL Globulin (1.7-4.1) g/dL Albumin/Globulin Ratio (1.0-2.8) Lipase (23-300) U/L Urine Color Yellow Urine Appearance Clear Urine pH 6.5 (4.5-8.0) Ur Specific [place] 1.010 (1.000-1.035) Urine Protein Negative (Negative) Urine Glucose (UA) Negative (Negative) g/dL Urine Ketones Negative (NEGATIVE) Urine Occult Blood Negative (Negative) Urine Nitrate Negative (Negative) Urine Bilirubin Negative (NEGATIVE) Urine Urobilinogen 0.2 (0.2) E.U./dL Ur Leukocyte Esterase Negative (NEGATIVE) Urine RBC None seen (0-5/HPF) Urine WBC None seen (0-5/HPF) Ur Squamous Epith Cells None seen (0-5/HPF) Urine Bacteria None seen (None) Ur Culture Indicated? Cult not indicated Imaging Data Chest x-ray: Radiologist's Impresson: PROCEDURE:? XR CHEST 1V ? INDICATIONS:? chest pain ? TECHNIQUE:? One view of the chest was acquired.? ? COMPARISON:? [facility], CR, XR CHEST 2V, 06/04/2022, 18:27. ? FINDINGS:? ? Surgical changes and devices:? ACDF.? Post median sternotomy and CABG. ? Lungs and pleura:? Lungs are clear.? No pleural effusions or pneumothorax.? ? Mediastinum:? Mediastinal contours appear normal.? Heart size is normal.? ? Bones and chest wall:? No suspicious bony lesions.? Overlying soft tissues appear unremarkable.? ? ? IMPRESSION:? No acute cardiopulmonary abnormality. ? ? ? Dictated by: Kirill Lanier M.D. on 03/07/2023 at 9:35? ECG Data Interpretation: Atrial fibrillation rate [address] changes, previous EKG May 2022 shows an atrial flutter MDM Narrative Medical decision making narrative: 2 of the 3 last EKGs patient has had has shown atrial flutter atrial fibrillation. I am not convinced that patient had sudden onset of AFib however she probably had increase in heart rate. She does take aspirin daily and she did take diltiazem 240 mg prior to arrival however metoprolol is also listed on her meds. Heart rate is much better controlled after 10 of diltiazem in the ED. She is 2- troponins. She reports that she is had increasing shortness of breath with exertion ongoing for awhile no known history of congestive heart failure. She is not been seen evaluated by Cardiology and awhile but does have a history of a triple bypass. BNP 460 with a clear chest x-ray. No evidence of fluid overload she is no peripheral edema. He is given 1 dose of Lasix. Heart rate varies in the ED from under 100 to 120s. Relatively controlled I do recommend she have an outpatient echocardiogram. She has a primary care provider who she is already contacted while she is been in the ED. She is no evidence of infection pneumonia. No need for any further workup. I do not believe patient to be a candidate for cardioversion multiple previous EKGs show atrial fibrillation she is not anticoagulated, and not a totally reliable historian. We did discuss anticoagulation, she will consider it. She actually is much better her heart rate is better controlled. Given an extra dose of diltiazem here in the ED. LUMA-VASc Score for Atrial Fibrillation Stroke Risk from [email or web address] on 03/07/2023 All calculations should be rechecked by clinician prior to use RESULT SUMMARY: 4 points Stroke risk was 4.8% per year in >90,000 patients (the [place] Atrial Fibrillation Cohort Study) and 6.7% risk of stroke/TIA/systemic embolism. One recommendation suggests a 0 score for men or 1 score for women (no clinical risk factors) is ?low? risk and may not require anticoagulation; a 1 score for men or 2 score for women is ?low-moderate? risk and should consider antiplatelet or anticoagulation; and a score >= for men or >= for women is ?moderate-high? risk and should otherwise be an anticoagulation candidate. INPUTS: Age ?> 1 = 65-74 Sex ?> 1 = Female CHF history ?> 0 = No Hypertension history ?> 1 = Yes Stroke/TIA/thromboembolism history ?> 0 = No Vascular disease history (prior GA, peripheral artery disease, or aortic plaque) ?> 1 = Yes Diabetes history ?> 0 = No Discharge Plan Departure Patient Disposition: Home Clinical Impression: Atrial fibrillation with rapid ventricular response Instructions: DI for Atrial Fibrillation Activity Restrictions/Additional Instructions: *You have been diagnosed with atrial fibrillation *What to do: At this time you do need an outpatient echocardiogram. Your heart rate needs to be better controlled. You are at risk of having stroke please take aspirin 81 mg daily it you will likely need stronger anticoagulation such as Eliquis, Pradaxa, Xarelto but please discuss with your PCP *Continue to take medications as directed *Follow up with your primary care provider in 2-3 days or call [phone] *Return to ER if you should have increasing shortness of breath palpitations dizziness lightheadedness or any new, worsening or concerning symptoms Prescriptions: No Action ALPRAZOLAM 0.25 mg PO TID PRN Qty: 0 AMLODIPINE BESYLATE (NORVASC) 10 mg PO HS Qty: 0 Diphenhydramine Hydrochloride (Benadryl) PRN Qty: 0 Metoprolol Tartrate (Lopressor) 50 mg PO BID Qty: 0 OFLOXACIN (Ocuflox) 2 gtt OPHTH Q DAY Qty: 0 lisinopril 5 MG tablet 5 mg PO QDAY Qty: 0 ondansetron 4 MG tablet,disintegrating 4 mg PO TID Qty: 0 losartan 50 mg tablet PO QDAY Qty: 0 hydrocodone-acetaminophen 5-325 mg tablet 1 tab PO Q4-6H PRN (Reason: pain) Qty: 10 0RF azithromycin 250 mg tablet See Rx Instructions .ROUTE .COMPLEX Qty: 6 0RF Rx Instructions: For 250 mg dose pack: take 500 mg today (day 1), then 250 mg for 4 days (days 2-5) albuterol sulfate 90 mcg/actuation HFA aerosol inhaler 2 puff inhalation Q4-6H PRN (Reason: shortness of breath or wheezing) Qty: 8.5 0RF Referrals: Evelio Matos MD [Primary Care Provider] - Stand Alone Forms: Patient Portal/API
[2023-03-07 08:29] LABS: Add Manual Diff / Slide Review NO; Basophils Absolute Auto 100 /uL (0-100); Basophils Percent Auto 1.2 % (0-2); Eosinophils Absolute Auto 100 /uL (0-450); Hematocrit 36.8 % (36-46); Hemoglobin 12.3 g/dL (12.0-16.0); Lymphocytes Absolute Auto 2100 /uL (1100-4500); Lymphocytes Percent Auto 22.3 % (25-40); Mean Corpuscular HGB Conc 33.5 % (30-36); Mean Corpuscular Hemoglobin 29.6 PG (26-34); Mean Corpuscular Volume 88.3 fL (80-100); Monocytes Absolute Auto 700 /uL (0-900); Monocytes Percent Auto 7.4 % (3-14); Neutrophils Absolute Auto 6300 /uL (1500-7000); Neutrophils Percent Auto 68.1 % (50-75); Platelet Count 331 X10^3/uL (150-400); Red Blood Cell Count 4.17 X10^6/uL (4.0-5.2); Red Cell Distribution Width 16.6 % (11.6-14.8); White Blood Cell Count 9.2 X10^3/uL (4.5-11.0)
[2023-03-07 08:30] LABS: Prothrombin Time 11.3 SECONDS (10.1-12.7)
[2023-03-07 08:33] LABS: PTT Partial Thromboplastin Tim 30 SECONDS (26-36)
[2023-03-07 08:35] LABS: Alanine Aminotransferase 27 IU/L (<35); Albumin 4.3 g/dL (3.5-5.0); Alkaline Phosphatase 155 U/L (38-126); Aspartate Aminotransferase 36 IU/L (14-36); BUN Creatinine Ratio 20.6 (6-22); Bilirubin Total 0.8 mg/dL (0.2-1.3); Blood Urea Nitrogen 14 mg/dL (7-17); Calcium 9.1 mg/dL (8.4-10.2); Carbon Dioxide 27 mmol/L (22-32); Chloride 100 mmol/L (98-107); Creatine Kinase 104 U/L (30-135); Estimated Glomerular Filt Rate > 60 mL/min (>60); Globulin 4.2 g/dL (1.7-4.1); Glucose 199 mg/dL (80-110); HEMOLYSIS < 15 (0-50); Lipase 117 U/L (23-300); Magnesium 2.5 mg/dL (1.6-2.3); Potassium 3.6 mmol/L (3.4-5.1); Sodium 138 mmol/L (137-145); Total Protein 8.5 g/dL (6.3-8.2)
[2023-03-07] MEDS: dilTIAZem 5 MG/ML SDV 10 MG IV (08:35)
[2023-03-07] MEDS: ASPIRIN 81 MG CHEW TAB 324 MG PO (08:35)
[2023-03-07 08:46] LABS: Troponin I < 0.012 ng/mL (0.01-0.034)
[2023-03-07 09:21] LABS: NT-proBNP (BNP-Adult 18+) 460 pg/mL (<125)
[2023-03-07 10:57] LABS: Appearance Urine UA CLEAR; Bilirubin Urine UA NEGATIVE (NEGATIVE); Color Urine UA YELLOW; Glucose Urine UA NEGATIVE (Negative); Ketones Urine UA NEGATIVE (NEGATIVE); Leukocyte Esterase Urine UA NEGATIVE (NEGATIVE); Nitrite Urine UA NEGATIVE (Negative); Occult Blood Urine UA NEGATIVE (Negative); Protein Urine UA NEGATIVE (Negative); Urobilinogen Urine UA 0.2 E.U./dL (0.2)
[2023-03-07 10:58] LABS: Troponin I < 0.012 ng/mL (0.01-0.034)
[2023-03-07 10:59] LABS: pH Urine UA 6.5 (4.5-8.0)
[2023-03-07 11:06] LABS: Bacteria Urine None Seen; RBC Urine None Seen (0-5/HPF); Squamous Epithelial Cell Urine None Seen (0-5/HPF); WBC Urine None Seen (0-5/HPF)
[2023-03-07 11:07] LABS: Culture Indicated Urine Cult Not Indicated
[2023-03-07] MEDS: dilTIAZem SR 60 MG PO (12:08)
[2023-03-07] MEDS: FUROSEMIDE 40 MG/4 ML VIAL 20 MG IV (12:08)
== END 2023-03-07 12:25 | disposition home or self-care (01) ==
PROVIDERS: Emergency Provider Emergency Medicine; PCP Family Medicine
DX: I48.20 Chronic atrial fibrillation, unspecified (principal); R06.02 Shortness of breath; R07.9 Chest pain, unspecified
CPT/HCPCS: 36415; 71045; 80053; 81001; 82550; 83690; 83735; 83880; 84484; 85025; 85610; 85730; 93005; 93010; 96374; 96375; 99284; J1940

== ENCOUNTER → 2023-03-27 07:48 | Outpatient (CLI) | payer OTHER, SELFPAY ==
--- NOTE | 2023-03-27 | DI.ECHO.S_ITS ---
[facility]+ [facility] +---------+ : : [address] : : : : [id number] : : : : Phone: [phone]+ Echocardiogram Report + + :Name: KINJAL LEON Study Date: 03/27/2023 Height: 62 in : :[facility] ReadingLocation: Weight: 230 lb : : Gender: Female BSA: 2.0 m2 : :: 1955 Age: 67 yrs BP: 123/94 mmHg: :Reason For Study: ATRIAL FIBRILLATION : :Ordering Physician: LAYLA, : :PERRY Hoffman Performed By: Supriya De La Torre : :Referring: PERRY RICH : + + Interpretation Summary Afib with controlled rate. Normal LV size, wall thickness, wall motion and LV systolic function. EF is 60-65%. Mild LA enlargement; otherwise normal chamber sizes. Mild mitral annular calcification with mild-moderate associated mitral regurgitation . Mild central tricuspid regurgitation with estimated PA systolic pressure of 38 mm Hg assuming RA pressure of 10 mm Hg. Compared to prior study 06/17/2018 no changes have occurred. Procedure: A two-dimensional transthoracic echocardiogram with color flow and Doppler was performed. The study quality was technically difficult. Comparison is made with the echocardiogram of 06/17/2018. The patient was in atrial fibrillation with heart rates between 83-101 bpm during the exam. Left Ventricle: The left ventricle is normal in size and wall thickness. The ejection fraction is estimated to be 60-65%. Diastolic function could not be accurately assessed due to atrial fibrillation. Right Ventricle: The right ventricle is normal in size and function. Atria: The left atrium is mildly dilated. Right atrial size is normal. There is no Doppler evidence for an interatrial shunt. Mitral Valve: There is mild to moderate mitral annular calcification. The mitral valve leaflets appear mildly thickened, but open well. There is mild to moderate mitral regurgitation. Aortic Valve: The aortic valve is mildly calcified. There is mild aortic valve sclerosis. There is no aortic valve stenosis. No aortic regurgitation is present. Tricuspid Valve: The tricuspid valve is normal in structure and function. There is mild tricuspid regurgitation. Pulmonic Valve: The pulmonic valve is not well visualized. There is no pulmonic valvular regurgitation. Great Vessels: The aortic root is normal size. The dimensions of the ascending aorta are normal. The inferior vena cava was not visualized. Pericardium/ Pleura There is no pericardial effusion. There is no pleural effusion. MMode/2D Measurements & Calculations LVIDd: 4.6 cm LVOT diam: 2.1 cm LVIDs: 3.1 cm Ao root diam: 2.6 cm FS: 32.7 % asc Aorta Diam: 3.3 cm EPSS: 0.52 cm Ao Arch Diam (Prox Trans): 3.0 cm IVSd: 0.98 cm LVPWd: 1.0 cm LV ordaz. diameter/BSA (cm/m^2): 2.3 LV sys. diameter/BSA (cm/m^2): 1.5 LA A2 area: 22.2 cm2 RA long axis: 5.3 cm LA A4 area: 25.4 cm2 RA area: 16.2 cm2 LA length (vol): 6.1 cm RA vol: 42.1 ml LA vol: 78.5 ml RA : 20.8 ml/m2 LA vol index: 38.7 ml/m2 RVD1 (basal): 3.5 cm RVD2 (mid): 2.7 cm TAPSE: 1.7 cm Doppler Measurements & Calculations Ao V2 max: 151.8 cm/sec LVOT Max Hamlet: 87.5 cm/sec Ao V2 mean: 96.7 cm/sec LV V1 max P.1 mmHg Ao max P.2 mmHg LV V1 VTI: 18.2 cm Ao mean P.4 mmHg LEROY(I,D): 2.3 cm2 Ao V2 VTI: 26.8 cm LEROY(V,D): 1.9 cm2 sev ratio: 0.68 LEROY indexed to BSA (cm^2/m^2): 1.1 MV E max hamlet: 124.7 cm/sec TR max hamlet: 262.2 cm/sec MV A max hamlet: 1.5 cm/sec TR max P.5 mmHg MV E/A: 82.7 PA V2 max: 83.2 cm/sec Med Peak E' Hamlet: 5.9 cm/sec PA V2 mean: 57.8 cm/sec E/E' med: 21.3 PA mean P.5 mmHg Lat Peak E' Hamlet: 9.5 cm/sec PA pr(Accel): 44.7 mmHg E/E' lat: 13.2 E/e' average: 17.2 MV dec time: 0.19 sec MVA(VTI): 2.2 cm2 MV V2 mean: 87.9 cm/sec SV(LVOT): 61.1 ml MV mean P.7 mmHg MV V2 VTI: 27.3 cm Electronically signed by: Zabrina Paige M.D. on Reading Physician:03/30/2023 03:39 AM
== END ==
PROVIDERS: PCP Family Medicine; Referring Provider Family Medicine; Visit Provider Family Medicine
DX: I48.0 Paroxysmal atrial fibrillation (principal); I34.0 Nonrheumatic mitral (valve) insufficiency; I07.1 Rheumatic tricuspid insufficiency; I34.81 Nonrheumatic mitral (valve) annulus calcification
CPT/HCPCS: 93306

== ENCOUNTER → 2023-06-09 15:15 | Outpatient (CLI) | payer OTHER, SELFPAY ==
--- NOTE | 2023-06-09 15:19 | DI.RAD.S_ITS ---
PROCEDURE: XR LUMBAR SPINE 2-3V INDICATIONS: LOWER BACK PAIN TECHNIQUE: 3 views of the lumbar spine were acquired. COMPARISON: [facility], CR, XR LUMBAR SPINE 2-3V, 12/03/2021, 12:39. FINDINGS: Bones: 5 [id number] vertebrae are present. There is normal bony alignment. No vertebral body compression fractures. No suspicious bony lesions. Disc spaces are relatively preserved. Diffuse arthritic facet hypertrophy present particularly lower lumbar spine. Aortic atherosclerotic vascular calcification. Soft tissues: Overlying bowel gas pattern is normal. No suspicious soft tissue calcifications. IMPRESSION: Degenerative facet arthropathy noted particularly in the lower lumbar spine. Approved by: Spencer La M.D. on 06/09/2023 at 18:47
== END ==
PROVIDERS: PCP Family Medicine; Referring Provider Family Medicine; Visit Provider Family Medicine
DX: M47.816 Spondylosis without myelopathy or radiculopathy, lumbar region (principal); M51.36 Other intervertebral disc degeneration, lumbar region; M54.50 Low back pain, unspecified; G89.29 Other chronic pain
CPT/HCPCS: 72100

== ENCOUNTER → 2023-09-13 10:01 | Outpatient (CLI) | payer OTHER, SELFPAY ==
--- NOTE | 2023-09-13 10:03 | DI.RAD.S_ITS ---
PROCEDURE: FL BARIUM SWALLOW INDICATIONS: Dysphagia COMPARISON: None FINDINGS: Function: A few tertiary esophageal contractions are seen.. No elicited gastroesophageal reflux. There is normal transit of a calibrated barium tablet through the esophagus into the stomach. Morphology: Air-contrast images demonstrate normal mucosal morphology. Single contrast views show no esophageal strictures, extrinsic mass effects, or diverticula. Limited images of the stomach demonstrate unremarkable appearance. Fluoro time: 2.1 minutes. 18 images saved. One exposure taken. IMPRESSION: Tertiary esophageal contractions seen. If indicated, endoscopy may further evaluate. Dictated by: Deion Hassan M.D. on 09/13/2023 at 17:09 Approved by: Deion Hassan M.D. on 09/13/2023 at 17:12
== END ==
LOC: RAD 10:02
PROVIDERS: PCP Family Medicine; Referring Provider Family Medicine; Visit Provider Family Medicine
DX: K22.89 Other specified disease of esophagus (principal); R13.10 Dysphagia, unspecified; R63.8 Other symptoms and signs concerning food and fluid intake
CPT/HCPCS: 74220

== ENCOUNTER → 2023-09-21 15:43 | Outpatient (CLI) | payer OTHER, SELFPAY ==
--- NOTE | 2023-09-21 15:44 | DI.MG.S_ITS ---
BILATERAL DIGITAL SCREENING MAMMOGRAM 3D/2D WITH CAD: 09/21/2023 CLINICAL: Baseline exam. Routine screening. No prior exams were available for comparison. Both breasts are heterogeneously dense, which may obscure small masses (category c / 51-75% glandular tissue). Current study was also evaluated with a Computer Aided Detection (CAD) system. There are benign calcifications in both breasts. There also are benign vascular calcifications in both breasts. No significant masses, calcifications, or other findings are seen in either breast. IMPRESSION: BENIGN There is no mammographic evidence of malignancy. A 1 year screening mammogram is recommended. Based on the Tyrer Cuzick model (a risk assessment model) the patient's lifetime risk is 7.3% and her 10 year risk is 4.0%. According to the ACR, ACS, and NCCN guidelines, an annual breast MRI exam along with mammogram is recommended if the patient's lifetime risk is 20% or greater. This exam was interpreted at Station ID: [id number]. NOTE: For mammograms, a report in lay terms will be sent to the patient. Approximately 15% of breast malignancies will not be visualized mammographically. In the management of a palpable breast mass, a negative mammogram must not discourage biopsy of a clinically suspicious lesion. Electronically Signed By: Melre oquendo/nisreen:09/22/2023 13:42:44 letter sent: Normal Exam ACR BI-RADS Category 2: Benign Finding(s) 3342F
--- NOTE | 2023-09-21 15:44 | DI.MRI.S_ITS ---
PROCEDURE: MR LUMBAR SPINE WO CON INDICATIONS: Spondylopathy; BASELINE BY DEFAULT TECHNIQUE: Noncontrast sagittal T1 spin echo and T2 fast echo, sagittal STIR, and T2 fast spin echo through the lumbar spine. In cases with scoliosis, additional coronal T2 fast spin echo may be performed. COMPARISON: [facility], CR, XR LUMBAR SPINE 2-3V, 06/09/2023, 15:43. FINDINGS: Image quality: Excellent. Alignment and Curvature: There is normal bony alignment. Bone Marrow: Marrow is of normal overall signal. No acute vertebral body compression fractures. Spinal Cord: Conus medullaris terminates at the L1 level. Visualized cord demonstrates normal signal and size. Paraspinous Soft Tissues: No paravertebral masses. 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 T12-L1: Normal appearance. L1-L2: Normal appearance. L2-L3: The disc height and disk signal are relatively well-preserved. Mild generalized disc bulge is seen. Mild facet joint hypertrophy is seen. Minimal to mild bilateral neural foraminal narrowing can be seen. Minimal central canal narrowing is seen. L3-L4: The disc height is well-preserved. Loss of disc signal is seen at this level. Mild to moderate disc bulge is seen, which is eccentric to the right side. Mild facet joint hypertrophy is seen. There is moderate left-sided and mild right-sided neural foraminal narrowing. Mild central canal narrowing is seen. L4-L5: The disc height and disk signal are relatively well-preserved. Mild to moderate disc bulge is seen, which is eccentric to the left. There is a superimposed central disc protrusion. Moderate facet joint hypertrophy is seen. There is moderate to severe left-sided neural foraminal narrowing, with a degree of compression upon the exiting left L4 nerve root. There is moderate right-sided neural foraminal narrowing. Mild central canal narrowing is seen. L5-S1: The disc height and disk signal are relatively well-preserved. Mild generalized disc bulge is seen. Mild facet joint hypertrophy is seen. Moderate bilateral neural foraminal narrowing is seen. Minimal central canal narrowing is seen. IMPRESSION: Multiple levels of lumbar spine degenerative change can be seen, which are overall worst at the L4-L5 level. Additional findings: Duplicated IVC Dictated by: Alexis Lal M.D. on 09/22/2023 at 13:59 Approved by: Alexis Lal M.D. on 09/22/2023 at 14:08
== END ==
PROVIDERS: PCP Family Medicine; Referring Provider Family Medicine; Visit Provider Family Medicine
DX: Z12.31 Encounter for screening mammogram for malignant neoplasm of breast (principal); R92.333 Mammographic heterogeneous density, bilateral breasts; M47.816 Spondylosis without myelopathy or radiculopathy, lumbar region; M47.817 Spondylosis without myelopathy or radiculopathy, lumbosacral region; M48.8X6 Other specified spondylopathies, lumbar region; M51.36 Other intervertebral disc degeneration, lumbar region; M54.50 Low back pain, unspecified; G89.29 Other chronic pain
CPT/HCPCS: 72148; 77063; 77067

== ENCOUNTER → 2023-09-25 14:17 | Outpatient (CLI) | payer OTHER, SELFPAY ==
--- NOTE | 2023-09-25 | DI.RAD.S_ITS ---
Bone Density Report Name: KINJAL LEON Age: 68 Sex: Female Ethnicity: White Date of : 1955 Indication: postmenopausal; screening for osteoporosis; Referring Provider: PERRY RICH Study: Bone densitometry was performed. Exam Date: September 25, 2023 Accession number: [id number] Bone Density: Region BMD T-score Z-score Classification AP Spine(L1-L4) 1.025 -0.2 1.8 Normal Femoral Neck (Left) 0.658 -1.7 0.0 Osteopenia Total Hip (Left) 0.892 -0.4 1.0 Normal Femoral Neck (Right) 0.669 -1.6 0.1 Osteopenia Total Hip (Right) 0.925 -0.1 1.3 Normal Total Hip Mean 0.909 -0.3 1.2 Normal World Health Organization criteria for BMD impression classify patients as: Normal (T-score at or above -1.0), Osteopenia (T-score between -1.0 and -2.5), or Osteoporosis (T-score at or below -2.5). 10-year Fracture Risk(1): Major Osteoporotic Fracture 8.9% Hip Fracture 1.2% Reported Risk Factors: [place] (), Neck BMD=0.658, BMI=42.5 (1) FRAX(R) Version 3.08. Fracture probability calculated for an untreated patient. Fracture probability may be lower if the patient has received treatment. Impression: The patient has low bone mass, based on the Left Femoral Neck T-score. The patient has an estimated ten-year risk of hip fracture of 1.2% and an estimated ten-year risk of major fracture of 8.9%, based on the WHO FRAX algorithm. Discussion: BONE DENSITY IS LOW AT ONE OR MORE SKELETAL SITES. This patient's lowest T-score is low at one or more skeletal sites. It meets the World Health Organization's (WHO) criteria for low bone mass (T-score between -1.0 and -2.5). The patient's 10-year risk of fracture as calculated by FRAX is less than the threshold where pharmacological therapy is recommended by the National Osteoporosis Foundation (NOF). However, all treatment decisions require clinical judgment and consideration of individual patient factors, including patient preferences, comorbidities, previous drug use, risk factors not captured in the FRAX model (e.g., frailty, falls, vitamin D deficiency, increased bone turnover, interval significant decline in bone density) and possible under or overestimation of fracture risk by FRAX. The patient should follow a healthful lifestyle (good nutrition with adequate calcium and vitamin D, and appropriate weight-bearing exercise). Follow-Up: Consider repeating this study in 2 to 3 years to reassess this patient's status, or sooner if there is some new clinical indication. Reported by: SAMMY YANG M.D. on 09/25/2023 2:59:00 PM.
== END ==
PROVIDERS: PCP Family Medicine; Referring Provider Family Medicine; Visit Provider Family Medicine
DX: M85.852 Other specified disorders of bone density and structure, left thigh (principal); Z78.0 Asymptomatic menopausal state
CPT/HCPCS: 77080

== ENCOUNTER → 2024-02-16 12:31 | Outpatient (CLI) | payer OTHER, SELFPAY ==
--- NOTE | 2024-02-16 12:33 | DI.RAD.S_ITS ---
PROCEDURE: XR CHEST 2V INDICATIONS: COUGH TECHNIQUE: 2 views of the chest were acquired. COMPARISON: [facility], CR, XR CHEST 1V, 03/07/2023, 8:25. FINDINGS: Median sternotomy wires in cervical fusion instrumentation. No right pleural effusion. Small left pleural effusion with patchy airspace opacity in the left lower lung, concerning for pneumonia. No pneumothorax. Mild pulmonary edema. Stable cardiomegaly. IMPRESSION: Small left effusion. Findings concerning for left lower lobe pneumonia. Recommend follow-up radiograph in 7-10 days to document resolution and to exclude underlying mass. Mild pulmonary edema. Dictated by: Jeny Lynn M.D. on 02/16/2024 at 17:03 Approved by: Jeny Lynn M.D. on 02/16/2024 at 17:05
== END ==
PROVIDERS: PCP Family Medicine; Referring Provider Family Medicine; Visit Provider Family Medicine
DX: J90 Pleural effusion, not elsewhere classified (principal); J81.1 Chronic pulmonary edema; R05.1 Acute cough; Z98.1 Arthrodesis status
CPT/HCPCS: 71046

== ENCOUNTER 2024-02-19 14:59 | Emergency (ER) | payer OTHER, SELFPAY ==
[2024-02-19 15:05] VITALS: BP 171/84; PULSE 88; RESP 17; TEMP 36.9; O2SAT 97; BMI 42.5
--- NOTE | 2024-02-19 15:55 | DI.RAD.S_ITS ---
PROCEDURE: XR CHEST 2V INDICATIONS: + pne 02/15, here for recheck TECHNIQUE: 2 views of the chest were acquired. COMPARISON: [facility], CR, XR CHEST 2V, 02/16/2024, 12:32. [facility], CR, XR CHEST 1V, 03/07/2023, 8:25. FINDINGS: Surgical changes and devices: Sternotomy. Lungs and pleura: Small left pleural effusion. Mediastinum: Mediastinal contours are normal. Heart size is enlarged. Bones and chest wall: No suspicious bony abnormalities. Soft tissues appear unremarkable. IMPRESSION: Small left pleural effusion. Dictated by: Mikey Larry M.D. on 02/19/2024 at 17:08 Approved by: Mikey Larry M.D. on 02/19/2024 at 17:08
[2024-02-19 16:56] VITALS: BP 189/82; PULSE 87; RESP 27
[2024-02-19 17:06] LABS: Add Manual Diff / Slide Review NO; Basophils Absolute Auto 0 /uL (0-100); Basophils Percent Auto 0.5 % (0-2); Eosinophils Absolute Auto 100 /uL (0-450); Eosinophils Percent Auto 0.9 % (2-4); Hematocrit 34.2 % (36-46); Hemoglobin 11.1 g/dL (12.0-16.0); Lymphocytes Absolute Auto 1300 /uL (1100-4500); Lymphocytes Percent Auto 19.1 % (25-40); Mean Corpuscular HGB Conc 32.6 % (30-36); Mean Corpuscular Hemoglobin 27.8 PG (26-34); Mean Corpuscular Volume 85.3 fL (80-100); Monocytes Absolute Auto 400 /uL (0-900); Monocytes Percent Auto 6.3 % (3-14); Neutrophils Absolute Auto 4900 /uL (1500-7000); Neutrophils Percent Auto 73.2 % (50-75); Platelet Count 338 X10^3/uL (150-400); White Blood Cell Count 6.7 X10^3/uL (4.5-11.0)
[2024-02-19 17:09] LABS: Bacteria Urine Moderate (10-30); Culture Indicated Urine Cult Not Indicated; Mucus Urine 2+ (Negative); RBC Urine 0-1/HPF (0-5/HPF); Squamous Epithelial Cell Urine 10-30 /HPF (0-5/HPF); Urine Volume 10mL (spun); WBC Urine 0-1/HPF (0-5/HPF)
[2024-02-19 17:13] LABS: Alanine Aminotransferase 28 IU/L (<35); Albumin 3.9 g/dL (3.5-5.0); Albumin Globulin Ratio 0.9 (1.0-2.8); Alkaline Phosphatase 135 U/L (38-126); Aspartate Aminotransferase 38 IU/L (14-36); BUN Creatinine Ratio 16.4 (6-22); Bilirubin Total 0.6 mg/dL (0.2-1.3); Blood Urea Nitrogen 12 mg/dL (7-17); Calcium 9.4 mg/dL (8.4-10.2); Carbon Dioxide 24 mmol/L (22-32); Chloride 103 mmol/L (98-107); Estimated Glomerular Filt Rate > 60 mL/min (>60); Globulin 4.2 g/dL (1.7-4.1); Glucose 246 mg/dL (80-110); HEMOLYSIS < 15 (0-50); Lipase 124 U/L (23-300); Potassium 4.4 mmol/L (3.4-5.1); Sodium 138 mmol/L (137-145); Total Protein 8.1 g/dL (6.3-8.2)
[2024-02-19 17:30] LABS: Procalcitonin 0.056 ng/mL (<0.5)
[2024-02-19 17:31] VITALS: BP 194/83; PULSE 80; RESP 19; O2SAT 96
[2024-02-19 18:00] VITALS: PULSE 89; RESP 23; O2SAT 97
[2024-02-19 18:01] VITALS: BP 177/77; PULSE 94; RESP 22; O2SAT 97
[2024-02-19 18:03] LABS: Adenovirus Not Detected (Not Detect); B. parapertussis Not Detected (Not Detecte); Bordetella pertussis Not Detected (Not Detect); Chlamydophila pneumoniae Not Detected (Not Detect); Coronavirus 229E Not Detected (Not Detect); Coronavirus HKU1 Not Detected (Not Detect); Coronavirus NL 63 Not Detected (Not Detect); Coronavirus OC43 Not Detected (Not Detect); Human Metapneumovirus Not Detected (Not Detect); Human Rhinovirus/Enterovirus Not Detected (Not Detect); Influenza A Not Detected (Not Detect); Influenza B Not Detected (Not Detect); Mycoplasma pneumoniae Not Detected (Not Detect); Parainfluenza Virus 1 Not Detected (Not Detect); Parainfluenza Virus 2 Not Detected (Not Detect); Parainfluenza Virus 3 Not Detected (Not Detect); Parainfluenza Virus 4 Not Detected (Not Detect); Respiratory Syncytial Virus Not Detected (Not Detect)
[2024-02-19 18:14] LABS: SARS- CoV-2 Detected (Not Detecte)
[2024-02-19 18:25] LABS: INR 1.3 (0.9-1.3); Prothrombin Time 15.5 SECONDS (9.4-12.5)
--- NOTE | 2024-02-19 18:27 | ED_ITS ---
HPI - Recheck/Abnormal Lab/Rx General Chief Complaint: Recheck/Abnormal Lab/Rx Stated Complaint: Pneumonia Time Seen by Provider: 02/19/24 15:45 Source: patient Mode of arrival: Wheelchair History of Present Illness HPI narrative: 68-year-old female with history of atrial fibrillation status post Watchman procedure on Xarelto, coronary artery disease status post CABG presents by private vehicle from home for cough, blood tinge in her sputum. patient states that multiple family members have been sick with similar symptoms. She tried to call her doctor's office and they told her to come to the ER for evaluation. T- max 100.5? at home. she states that she had an x-ray done with her primary care doctor several days ago that showed she had some pneumonia. Related Data Home Medications Medication Instructions Recorded Confirmed ALPRAZOLAM 0.25 mg PO TID PRN ##0 01/31/10 AMLODIPINE BESYLATE (NORVASC) 10 mg PO HS ##0 01/31/10 Diphenhydramine Hydrochloride PRN ##0 01/31/10 (Benadryl) Metoprolol Tartrate (Lopressor) 50 mg PO BID ##0 01/31/10 OFLOXACIN (Ocuflox) 2 gtt OPHTH Q DAY ##0 01/31/10 lisinopril 5 mg tablet 5 mg PO QDAY ##0 01/18/12 ondansetron 4 mg disintegrating 4 mg PO TID ##0 01/18/12 tablet losartan 50 mg tablet PO QDAY ##0 02/02/16 Previous Rx's Medication Instructions Recorded hydrocodone 5 mg-acetaminophen 325 1 tab PO Q4-6H PRN pain #10 tabs 05/11/22 mg tablet azithromycin 250 mg tablet See Rx Instructions PO .COMPLEX #6 06/04/22 tabs albuterol sulfate 90 mcg/actuation 2 puff inhalation Q4-6H PRN 06/05/22 aerosol inhaler shortness of breath or wheezing #8.5 grams benzonatate 200 mg capsule 200 mg PO BID-TID PRN cough #30 02/19/24 caps Allergies Allergy/AdvReac Type Severity Reaction Status Date / Time epinephrine [EPINEPHRINE] Allergy Unknown doesn't Verified 02/19/24 15:05 work lisinopril Allergy Unknown Stroke Verified 02/19/24 15:05 codeine [CODEINE] AdvReac Unknown Hives Verified 02/19/24 15:05 Patient History Social History Smoking Status: Never smoker Smoking Status: Never smoker alcohol intake frequency: a few times a week Alcohol type: wine Substance Use Type: does not use Exam Initial Vital Signs Initial Vital Signs: Vital Signs Temperature 98.4 F 02/19/24 15:05 Pulse Rate 88 02/19/24 15:05 Respiratory Rate 17 02/19/24 15:05 Blood Pressure 171/84 H 02/19/24 15:05 Pulse Oximetry 97 02/19/24 15:05 Oxygen Delivery Method Room Air 02/19/24 15:05 Const: Awake, alert, no acute distress, nontoxic appearing Cardiac: irregularly irregular RESP: unlabored, clear bilaterally, no wheezing Skin: Warm, Dry, intact, no rashes Neuro: AO x3, CN II-XII grossly intact, moves all extremities Course Orders Ordered: ED Orders 02/19/24 15:55 XR chest 2V Stat 02/19/24 16:36 Urine Microscopic Stat 02/19/24 16:40 Complete Blood Count AUTO DIFF Stat Comprehensive Metabolic Panel Stat Lactate (Lactic Acid) Stat Lipase Stat PTT Partial Thromboplastin Shiva Stat Procalcitonin Stat Prothrombin Time INR Stat 02/19/24 16:50 Blood Culture Stat 02/19/24 16:56 Respiratory Panel (Film Array) Stat Vital Signs Vital signs: Vital Signs - 8 hr 02/19/24 15:05 02/19/24 16:56 02/19/24 17:31 Temperature 98.4 F Pulse Rate 88 87 80 Respiratory Rate 17 27 H 19 Blood Pressure 171/84 H 189/82 H 194/83 H Pulse Oximetry 97 96 Oxygen Delivery Method Room Air Room Air MDM - Recheck/Abnormal Lab/Rx Lab Data 02/19/24 16:40 02/19/24 16:40 Labs: Lab Results 02/19/24 02/19/24 02/19/24 Range/Units 16:36 16:40 16:56 WBC 6.7 (4.5-11.0) X10^3/uL RBC 4.00 (4.0-5.2) X10^6/uL Hgb 11.1 L (12.0-16.0) g/dL Hct 34.2 L (36-46) % MCV 85.3 (80-100) fL MCH 27.8 (26-34) PG MCHC 32.6 (30-36) % RDW 16.0 H (11.6-14.8) % Plt Count 338 (150-400) X10^3/uL Neut % (Auto) 73.2 (50-75) % Lymph % (Auto) 19.1 L (25-40) % [place] % (Auto) 6.3 (3-14) % Eos % (Auto) 0.9 L (2-4) % Baso % (Auto) 0.5 (0-2) % Neut # (Auto) 4900 (1573-5173) /uL Lymph # (Auto) 1300 (7203-8629) /uL [facility] [place] # (Auto) 400 (0-900) /uL Eos # (Auto) 100 (0-450) /uL Baso # (Auto) 0 (0-100) /uL PT 15.5 H (9.4-12.5) SECONDS INR 1.3 (0.9-1.3) APTT 38 H (25.1-36.5) SECONDS Sodium 138 (137-145) mmol/L Potassium 4.4 (3.4-5.1) mmol/L Chloride 103 (98-107) mmol/L Carbon Dioxide 24 (22-32) mmol/L BUN 12 (7-17) mg/dL Creatinine 0.73 (0.52-1.04) mg/dL Estimated GFR > 60 (>60) mL/min BUN/Creatinine Ratio 16.4 (6-22) Glucose 246 H (80-110) mg/dL Lactate 2.0 (0.7-2.1) mmol/L Calcium 9.4 (8.4-10.2) mg/dL Total Bilirubin 0.6 (0.2-1.3) mg/dL AST 38 H (14-36) IU/L ALT 28 (<35) IU/L Alkaline Phosphatase 135 H (38-126) U/L Total Protein 8.1 (6.3-8.2) g/dL Albumin 3.9 (3.5-5.0) g/dL Globulin 4.2 H (1.7-4.1) g/dL Albumin/Globulin Ratio 0.9 L (1.0-2.8) Lipase 124 (23-300) U/L Procalcitonin 0.056 (<0.5) ng/mL Urine RBC 0-1/hpf (0-5/HPF) Urine WBC 0-1/hpf (0-5/HPF) Ur Squamous Epith Cells 10-30 /hpf H D (0-5/HPF) Urine Bacteria Moderate (10-30) H (None) Urine Mucus 2+ H (Negative) Ur Culture Indicated? Cult not indicated Vol Urine Centrifuged 10ml (spun) Chlamy pneumoniae PCR Not detected (Not Detect) Adenovirus (PCR) Not detected (Not Detect) B.parapertussis DNA PCR Not detected (Not Detecte) Coronavirus OC43 (PCR) Not detected (Not Detect) Coronavirus HKU1 (PCR) Not detected (Not Detect) Coronavirus 229E (PCR) Not detected (Not Detect) SARS-CoV-2 (PCR) Detected H (Not Detecte) Coronavirus NL63 (PCR) Not detected (Not Detect) Human Metapneumovir PCR Not detected (Not Detect) Influenza Type A (PCR) Not detected (Not Detect) Influenza Type B (PCR) Not detected (Not Detect) M. pneumoniae (PCR) Not detected (Not Detect) Parainfluenza 1 (PCR) Not detected (Not Detect) Parainfluenza 2 (PCR) Not detected (Not Detect) Parainfluenza 3 (PCR) Not detected (Not Detect) Parainfluenza 4 (PCR) Not detected (Not Detect) RSV (PCR) Not detected (Not Detect) Entero/Rhino (PCR) Not detected (Not Detect) Urine Dip Bedside Urine Glucose Negative Bedside Urine Bilirubin - Negative Bedside Urine Ketone - Negative Urine Specific Telferner 1.025 Bedside Urine Occult Blood - Negative Bedside Urine pH 5.5 Bedside Urine Protein +/- 15 Bedside Urine Urobilinogen - Negative Bedside Urine Nitrite - Negative Bedside Urine Leukocytes - Negative Esterase Imaging Data Chest x-ray: Radiologist's Impression: PROCEDURE: XR CHEST 2V INDICATIONS: + pne 02/15, here for recheck TECHNIQUE: 2 views of the chest were acquired. COMPARISON: [facility], CR, XR CHEST 2V, 02/16/2024, 12:32. [facility], CR, XR CHEST 1V, 03/07/2023, 8:25. FINDINGS: Surgical changes and devices: Sternotomy. Lungs and pleura: Small left pleural effusion. Mediastinum: Mediastinal contours are normal. Heart size is enlarged. Bones and chest wall: No suspicious bony abnormalities. Soft tissues appear unremarkable. IMPRESSION: Small left pleural effusion. Dictated by: Mikey Larry M.D. on 02/19/2024 at 17:08 Approved by: Mikey Larry M.D. on 02/19/2024 at 17:08 [facility] Narrative Medical decision making narrative: Well-appearing patient with fever and nonproductive cough at home. Reports fever at home, afebrile here. Vital signs unremarkable. Repeat two-view chest x-ray shows no pneumonia, small left pleural effusion. Patient did test positive for COVID. Likely viral URI based on reassuring physical exam and otherwise unremarkable laboratory workup. Patient informed of lab and imaging findings. Recommended supportive care measures at home for her symptoms. Patient states she will follow up with her primary care doctor Discharge Plan Departure Patient Disposition: Home Clinical Impression: COVID-19 Instructions: DI for Cough -- Adult Activity Restrictions/Additional Instructions: Your chest x-ray from the showed that you may have a small left-sided pneumonia, but your chest x-ray today is clear. Cough medications has been sent to the right [facility] in [place]. Make sure that you stay hydrated, you may take Tylenol and ibuprofen as needed for discomfort or fever. Prescriptions: New benzonatate 200 mg capsule 200 mg PO BID-TID PRN (Reason: cough) Qty: 30 0RF No Action ALPRAZOLAM 0.25 mg PO TID PRN Qty: 0 AMLODIPINE BESYLATE (NORVASC) 10 mg PO HS Qty: 0 Diphenhydramine Hydrochloride (Benadryl) PRN Qty: 0 Metoprolol Tartrate (Lopressor) 50 mg PO BID Qty: 0 OFLOXACIN (Ocuflox) 2 gtt OPHTH Q DAY Qty: 0 lisinopril 5 MG tablet 5 mg PO QDAY Qty: 0 ondansetron 4 MG tablet,disintegrating 4 mg PO TID Qty: 0 losartan 50 mg tablet PO QDAY Qty: 0 hydrocodone-acetaminophen 5-325 mg tablet 1 tab PO Q4-6H PRN (Reason: pain) Qty: 10 0RF azithromycin 250 mg tablet See Rx Instructions .ROUTE .COMPLEX Qty: 6 0RF Rx Instructions: For 250 mg dose pack: take 500 mg today (day 1), then 250 mg for 4 days (days 2-5) albuterol sulfate 90 mcg/actuation HFA aerosol inhaler 2 puff inhalation Q4-6H PRN (Reason: shortness of breath or wheezing) Qty: 8.5 0RF Referrals: Evelio Matos MD [Primary Care Provider] - Stand Alone Forms: Patient Portal/API
[2024-02-19 18:28] LABS: PTT Partial Thromboplastin Tim 38 SECONDS (25.1-36.5)
[2024-02-19 18:30] VITALS: PULSE 101; RESP 29; O2SAT 98
== END 2024-02-19 18:54 | disposition home or self-care (01) ==
PROVIDERS: Emergency Medicine; Emergency Provider Emergency Medicine; PCP Family Medicine
DX: U07.1 COVID-19 (principal); J90 Pleural effusion, not elsewhere classified; Z79.899 Other long term (current) drug therapy
CPT/HCPCS: 36415; 71046; 80053; 81003; 81015; 83605; 83690; 84145; 85025; 85610; 85730; 87040; 87633; 99283; 99284

== ENCOUNTER 2024-06-26 15:57 | Emergency (ER) | payer MEDICARE, SELFPAY ==
[2024-06-26 16:03] VITALS: PULSE 106; O2SAT 97
[2024-06-26 16:04] VITALS: BP 141/96; PULSE 105; RESP 18; TEMP 36.9; O2SAT 96; BMI 42.5
--- NOTE | 2024-06-26 16:08 | EKG_ITS ---
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
[2024-06-26 16:30] VITALS: PULSE 127; O2SAT 98
--- NOTE | 2024-06-26 16:33 | ED.GENADULT ---
HPI - General Adult General Chief complaint: Nasal Problem Stated complaint: Nose Bleed Time Seen by Provider: 06/26/24 16:02 Source: patient and EMS Mode of arrival: EMS History of Present Illness HPI narrative: Patient is a 60-year-old female. Has a history of atrial fibrillation. States she was always in AFib. States that her heart rate does very. She was not on metoprolol. She was not on anticoagulation. She has a watchman in place. Is here for evaluation of a nosebleed. Patient states that she did not have any trauma. No sinus congestion. She did start to have bleeding from the right side of her nose. She contacted EMS. She was given Afrin which did seem to resolve her issues. She denies chest pain or shortness of breath. She has had some vaginal bleeding in the past and she was had a hysterectomy. Has not had this evaluated. No other bleeding disorder noted. Related Data Home Medications Medication Instructions Recorded Confirmed ALPRAZOLAM 0.25 mg PO TID PRN ##0 01/31/10 AMLODIPINE BESYLATE (NORVASC) 10 mg PO HS ##0 01/31/10 Diphenhydramine Hydrochloride PRN ##0 01/31/10 (Benadryl) Metoprolol Tartrate (Lopressor) 50 mg PO BID ##0 01/31/10 OFLOXACIN (Ocuflox) 2 gtt OPHTH Q DAY ##0 01/31/10 lisinopril 5 mg tablet 5 mg PO QDAY ##0 01/18/12 ondansetron 4 mg disintegrating 4 mg PO TID ##0 01/18/12 tablet losartan 50 mg tablet PO QDAY ##0 02/02/16 Previous Rx's Medication Instructions Recorded hydrocodone 5 mg-acetaminophen 325 1 tab PO Q4-6H PRN pain #10 tabs 05/11/22 mg tablet azithromycin 250 mg tablet See Rx Instructions PO .COMPLEX #6 06/04/22 tabs albuterol sulfate 90 mcg/actuation 2 puff inhalation Q4-6H PRN 06/05/22 aerosol inhaler shortness of breath or wheezing #8.5 grams benzonatate 200 mg capsule 200 mg PO BID-TID PRN cough #30 02/19/24 caps Allergies Allergy/AdvReac Type Severity Reaction Status Date / Time epinephrine [EPINEPHRINE] Allergy Unknown doesn't Verified 06/26/24 16:08 work lisinopril Allergy Unknown Stroke Verified 06/26/24 16:08 codeine [CODEINE] AdvReac Unknown Hives Verified 06/26/24 16:08 gabapentin AdvReac Unknown Verified 06/26/24 16:08 naproxen AdvReac Unknown Verified 06/26/24 16:08 Review of Systems Review of Systems ROS Unobtainable: All systems reviewed & are unremarkable except as noted in HPI and below Patient History Social History Smoking Status: Never smoker Smoking Status: Never smoker alcohol intake frequency: a few times a week Alcohol type: wine Exam Initial Vital Signs Initial Vital Signs: Vital Signs Temperature 98.4 F 06/26/24 16:04 Pulse Rate 105 H 06/26/24 16:04 Respiratory Rate 18 06/26/24 16:04 Blood Pressure 141/96 H 06/26/24 16:04 Pulse Oximetry 96 06/26/24 16:04 Oxygen Delivery Method Room Air 06/26/24 16:04 Const General: cooperative, comfortable and No ill appearing HENMT Head: normal to inspection and normocephalic Nose: external nose normal, No epistaxis and No nasal discharge Resp Effort & Inspection: normal respiratory effort Auscultation: clear to auscultation bilaterally Cardio Rate: tachycardic Rhythm: regular rhythm Skin General: no rashes or lesions noted Neuro General: patient alert, patient awake, patient oriented x3 and moves all extremities Extrem General: normal to inspection Course Orders Ordered: ED Orders 06/26/24 16:04 EKG-12 Lead Stat 06/26/24 16:32 Complete Blood Count AUTO DIFF Stat 06/26/24 16:58 Comprehensive Metabolic Panel Stat Lipase Stat Vital Signs Vital signs: Vital Signs - 8 hr 06/26/24 16:04 Temperature 98.4 F Pulse Rate 105 H Respiratory Rate 18 Blood Pressure 141/96 H Pulse Oximetry 96 Oxygen Delivery Method Room Air Medical Decision Making Lab Data Lab results reviewed: Yes I reviewed the patient's lab results. 06/26/24 16:32 06/26/24 16:58 Labs: Lab Results 06/26/24 06/26/24 Range/Units 16:32 16:58 WBC 9.2 (4.5-11.0) X10^3/uL RBC 4.77 (4.0-5.2) X10^6/uL Hgb 13.3 (12.0-16.0) g/dL Hct 40.6 (36-46) % MCV 85.2 (80-100) fL MCH 27.9 (26-34) PG MCHC 32.7 (30-36) % RDW 16.6 H (11.6-14.8) % Plt Count 289 (150-400) X10^3/uL Neut % (Auto) 74.1 (50-75) % Lymph % (Auto) 18.1 L (25-40) % [place] % (Auto) 6.8 (3-14) % Eos % (Auto) 0.5 L (2-4) % Baso % (Auto) 0.5 (0-2) % Neut # (Auto) 6800 (0492-7294) /uL Lymph # (Auto) 1700 (8193-8095) /uL [place] # (Auto) 600 (0-900) /uL Eos # (Auto) 0 (0-450) /uL Baso # (Auto) 0 (0-100) /uL Sodium 133 L (137-145) mmol/L Potassium 4.5 (3.4-5.1) mmol/L Chloride 103 (98-107) mmol/L Carbon Dioxide 26 (22-32) mmol/L BUN 13 (7-17) mg/dL Creatinine 0.86 (0.52-1.04) mg/dL Estimated GFR > 60 (>60) mL/min BUN/Creatinine Ratio 15.1 (6-22) Glucose 461 H (80-110) mg/dL Calcium 9.0 (8.4-10.2) mg/dL Total Bilirubin 0.5 (0.2-1.3) mg/dL AST 37 H (14-36) IU/L ALT 31 (<35) IU/L Alkaline Phosphatase 185 H (38-126) U/L Total Protein 8.0 (6.3-8.2) g/dL Albumin 4.0 (3.5-5.0) g/dL Globulin 4.0 (1.7-4.1) g/dL Albumin/Globulin Ratio 1.0 (1.0-2.8) Lipase 142 (23-300) U/L ECG Data Attestation: I personally reviewed and interpreted this ECG as follows: Interpretation: Atrial fibrillation Ventricular rate of 129 Normal axis Normal QRS Normal QTC No ST T wave changes MDM Narrative Medical decision making narrative: Labs today are unremarkable. After period of observation she had no further bleeding. Patient is in AFib but she states she was always in AFib and she was asymptomatic from this. Plan will be to discharge patient home. She was a follow-up with her primary doctor scheduled for 2 weeks from now. Informed her that she did need to talk with her primary doctor about the vaginal bleeding that she has been having especially since she was had a hysterectomy. No indication for admission to the hospital. she was given return precautions. She expressed understanding and agreement. Discharge Plan Departure Patient Disposition: Home Clinical Impression: Epistaxis Instructions: DI for Nosebleed Activity Restrictions/Additional Instructions: Recommend that you continue to take all of your medications as directed. Keep your scheduled appointment that you have with your primary doctor coming up on the of this month. Return to the emergency department for new or worsening symptoms. Prescriptions: No Action ALPRAZOLAM 0.25 mg PO TID PRN Qty: 0 AMLODIPINE BESYLATE (NORVASC) 10 mg PO HS Qty: 0 Diphenhydramine Hydrochloride (Benadryl) PRN Qty: 0 Metoprolol Tartrate (Lopressor) 50 mg PO BID Qty: 0 OFLOXACIN (Ocuflox) 2 gtt OPHTH Q DAY Qty: 0 lisinopril 5 MG tablet 5 mg PO QDAY Qty: 0 ondansetron 4 MG tablet,disintegrating 4 mg PO TID Qty: 0 losartan 50 mg tablet PO QDAY Qty: 0 benzonatate 200 mg capsule 200 mg PO BID-TID PRN (Reason: cough) Qty: 30 0RF hydrocodone-acetaminophen 5-325 mg tablet 1 tab PO Q4-6H PRN (Reason: pain) Qty: 10 0RF azithromycin 250 mg tablet See Rx Instructions .ROUTE .COMPLEX Qty: 6 0RF Rx Instructions: For 250 mg dose pack: take 500 mg today (day 1), then 250 mg for 4 days (days 2-5) albuterol sulfate 90 mcg/actuation HFA aerosol inhaler 2 puff inhalation Q4-6H PRN (Reason: shortness of breath or wheezing) Qty: 8.5 0RF Referrals: Miscellaneous,Doctor, MD [Primary Care Provider] - Stand Alone Forms: Patient Portal/API/Survey
[2024-06-26 16:43] LABS: Add Manual Diff / Slide Review NO; Basophils Absolute Auto 0 /uL (0-100); Basophils Percent Auto 0.5 % (0-2); Eosinophils Absolute Auto 0 /uL (0-450); Eosinophils Percent Auto 0.5 % (2-4); Hematocrit 40.6 % (36-46); Hemoglobin 13.3 g/dL (12.0-16.0); Lymphocytes Absolute Auto 1700 /uL (1100-4500); Lymphocytes Percent Auto 18.1 % (25-40); Mean Corpuscular HGB Conc 32.7 % (30-36); Mean Corpuscular Hemoglobin 27.9 PG (26-34); Mean Corpuscular Volume 85.2 fL (80-100); Monocytes Absolute Auto 600 /uL (0-900); Monocytes Percent Auto 6.8 % (3-14); Neutrophils Absolute Auto 6800 /uL (1500-7000); Neutrophils Percent Auto 74.1 % (50-75); Platelet Count 289 X10^3/uL (150-400); Red Blood Cell Count 4.77 X10^6/uL (4.0-5.2); Red Cell Distribution Width 16.6 % (11.6-14.8); White Blood Cell Count 9.2 X10^3/uL (4.5-11.0)
[2024-06-26 17:00] VITALS: PULSE 119; O2SAT 97
[2024-06-26 17:18] LABS: Alanine Aminotransferase 31 IU/L (<35); Alkaline Phosphatase 185 U/L (38-126); Aspartate Aminotransferase 37 IU/L (14-36); BUN Creatinine Ratio 15.1 (6-22); Bilirubin Total 0.5 mg/dL (0.2-1.3); Blood Urea Nitrogen 13 mg/dL (7-17); Carbon Dioxide 26 mmol/L (22-32); Chloride 103 mmol/L (98-107); Estimated Glomerular Filt Rate > 60 mL/min (>60); Glucose 461 mg/dL (80-110); HEMOLYSIS < 15 (0-50); Lipase 142 U/L (23-300); Potassium 4.5 mmol/L (3.4-5.1); Sodium 133 mmol/L (137-145)
[2024-06-26 17:30] VITALS: PULSE 107; RESP 20; O2SAT 96
--- NOTE | 2024-06-26 17:57 | PC.NURSE ---
Nose bleed in right now. Afrin given by EMS. Pt instructed on nose clamping
[2024-06-26 17:58] VITALS: BP 168/73; PULSE 95; RESP 19; O2SAT 97
== END 2024-06-26 18:03 | disposition home or self-care (01) ==
PROVIDERS: Emergency Provider Emergency Medicine
DX: R04.0 Epistaxis (principal); I48.91 Unspecified atrial fibrillation; N93.9 Abnormal uterine and vaginal bleeding, unspecified
CPT/HCPCS: 36415; 80053; 83690; 85025; 93005; 99281; 99284

== ENCOUNTER → 2024-08-10 11:06 | Outpatient (CLI) | payer MEDICARE, SELFPAY ==
[2024-08-10 12:18] LABS: Hemoglobin A1C% w Est Avg Glu 12.7 % (4.0-6.0)
[2024-08-10 12:19] LABS: Cholesterol 252 mg/dL (140-199); HDL Cholesterol 31 mg/dL (40-60); LDL Cholesterol Calculated 153 mg/dL (<100); Triglycerides 342 mg/dL (35-150)
== END ==
PROVIDERS: PCP Family Medicine; Referring Provider Family Medicine; Visit Provider Family Medicine
DX: Z13.1 Encounter for screening for diabetes mellitus (principal); E78.5 Hyperlipidemia, unspecified; R73.09 Other abnormal glucose; I10 Essential (primary) hypertension
CPT/HCPCS: 36415; 80061; 83036

== ENCOUNTER 2024-12-22 08:02 | Emergency (ER) | payer MEDICARE, SELFPAY ==
[2024-12-22] VITALS (82 sets, daily range): BP systolic 129–206; BP diastolic 67–97; PULSE 68–98; RESP 17–41; TEMP 37; O2SAT 91–97; BMI 42.5
--- NOTE | 2024-12-22 08:31 | EKG_ITS ---
[address] [address] Test Date: 2024-12-22 Pat Name: Jessenia Peres Department: Room: Gender: Female [employer] In[employer]: : 1955 Requested By: Order Number: [id number] Reading MD: Mina Muhammad MD Measurements Intervals [place] Rate: 100 P: ND: QRS: 41 QRSD: 98 T: 120 QT: 368 QTc: 474 Interpretive Statements Atrial fibrillation Incomplete right bundle branch block Abnormal QRS-T angle, consider primary T wave abnormality NO SIGNIFICANT CHANGE FROM PRIOR TRACING Electronically Signed On 12-22-2024 11:35:32 PDT by Mina Muhammad MD
--- NOTE | 2024-12-22 08:31 | DI.RAD.S_ITS ---
PROCEDURE: XR CHEST 1V INDICATIONS: chest pain TECHNIQUE: One view of the chest was acquired. COMPARISON: [facility], CR, XR CHEST 2V, 02/19/2024, 15:53. [facility], CR, XR CHEST 2V, 02/16/2024, 12:32. FINDINGS AND IMPRESSION: Small left effusion again seen, slightly increased compared to January 2024. Underlying opacity or atelectasis is likely present. Consider future imaging surveillance to assess for resolution. Mild cardiomegaly. Sternotomy wires and cervical fusion hardware. Low lung volumes. Degenerative osseous changes. Dictated by: Dawson Martinez M.D. on 12/22/2024 at 8:10 Approved by: Dawson Martinez M.D. on 12/22/2024 at 8:11
--- NOTE | 2024-12-22 08:33 | ED.GENADULT ---
HPI - General Adult General Chief complaint: Shortness of Breath/Dyspnea Stated complaint: SOB Time Seen by Provider: 12/22/24 08:04 Source: patient Mode of arrival: EMS History of Present Illness HPI narrative: 69-year-old woman with a history of coronary artery disease post 4 vessel CABG as well as prior cardiac arrest, chronic atrial fibrillation treated with Watchman procedure and rate controlled with diltiazem ER 360 mg, not currently anticoagulated, hypertension presents via medics with complaints of significant dyspnea when she awoke this morning. This has been increasing over the course of the last week, this morning was associated with sharper sensation and central chest pressure in the left side. Despite oxygen and saturations at 96% she continues to be dyspneic enough she is having difficulty speaking in complete sentences. No recent fevers, cough, chills. She does not describe significant lower extremity edema. Related Data Home Medications ?Medication ?Instructions ?Recorded ?Confirmed diltiazem HCl 360 mg 360 mg PO DAILY 07/04/24 08/14/24 capsule,extended release 24 hr fluticasone propionate 50 1 spray intranasal BID PRN 07/04/24 08/14/24 mcg/actuation nasal spray,suspension furosemide 20 mg tablet 20 mg PO BID 07/04/24 08/14/24 omeprazole 20 mg capsule,delayed 20 mg PO BID 07/04/24 08/14/24 release potassium chloride 20 mEq 20 meq PO BID 07/04/24 08/14/24 tablet,extended release(part/cryst) metformin 500 mg tablet,extended 500 mg PO ONCE PM 12/04/24 12/04/24 release 24 hr Previous Rx's ?Medication ?Instructions ?Recorded blood-glucose meter #1 ea 08/16/24 lancets 33 gauge #100 ea 08/16/24 Allergies Allergy/AdvReac Type Severity Reaction Status Date / Time epinephrine (EPINEPHRINE) Allergy Unknown doesn't Verified 12/22/24 08:04 work lisinopril Allergy Unknown Stroke Verified 12/22/24 08:04 [id number] Reductase AdvReac Severe Joint Pain Verified 12/22/24 08:04 Inhibitor codeine (CODEINE) AdvReac Unknown Hives Verified 12/22/24 08:04 gabapentin AdvReac Unknown Verified 12/22/24 08:04 naproxen AdvReac Unknown Verified 12/22/24 08:04 Review of Systems Review of Systems Narrative: Pertinent positive and negative findings as per HPI Patient History Medical History (Updated 12/22/24 @ 14:08 by Millie Gonzalez MD) Ovarian cyst Irregular menstrual cycle Heavy menstrual period Endometriosis Gastritis Esophageal spasm (~2022) Heart failure Atrial fibrillation (~2019) Aortic stenosis (~2019) Cardiac arrest (~2017) Diabetes mellitus BMI greater than 40 History of epistaxis Hypertension Pigmented nevus Skin neoplasm COVID-19 Surgical History (Updated 07/31/24 @ 19:44 by Kyara Talavera) Anesthesia Polyp of duodenum (~2023) Pacemaker (~2023) S/P triple vessel bypass (~2019) History of neck surgery (~2008) History of cataract removal with insertion of prosthetic lens (~2012) History of hysterectomy (~2002) Family History (Updated 07/31/24 @ 19:57 by Kyara Talavera) Father Hypertension Mother History of heart disease Hypertension Brother History of heart disease Hypertension Brother Hypertension Grandfather No problems noted. Grandmother History of heart disease History of heart attack Grandfather No problems noted. Grandmother Lupus Social History Smoking Status: Never smoker Smoking Status: Never smoker alcohol intake frequency: a few times a week Alcohol type: wine Exam Initial Vital Signs Initial Vital Signs: Vital Signs Temperature 98.6 F 12/22/24 08:04 Pulse Rate 88 12/22/24 08:04 Respiratory Rate 30 H 12/22/24 08:04 Blood Pressure 156/76 H 12/22/24 08:04 Pulse Oximetry 94 12/22/24 08:04 Oxygen Delivery Method Room Air 12/22/24 08:04 General: Chronically ill-appearing, dyspneic tachypneic able to speak in 5-6 word sentences HEENT: Moist mucous membranes, normal sclera with reactive pupils, Neck: No JVD, supple Respiratory: Lungs with mild bibasilar crackles, no wheezing full and symmetrical air movement Cardiac: Regular rate and rhythm no murmurs no bruits Abdomen: Soft, nontender, no rebound or guarding, no flank pain Skin: Warm and dry, no rashes Neurologic: Grossly neurologically intact with no obvious asymmetries or abnormalities Extremities: No trauma, no significant lower extremity Psych: Cooperative, appropriate insight and affect Course Orders Ordered: ED Orders 12/22/24 08:31 XR chest 1V Stat EKG-12 Lead Stat 12/22/24 08:40 BNP [NT-proBNP (BNP-Adult 18+)] Stat Complete Blood Count AUTO DIFF Stat Comprehensive Metabolic Panel Stat Lipase Stat Troponin & CK Cardiac Panel Stat 12/22/24 09:29 CT angio chest PE protocol Stat 12/22/24 11:21 Trop I [Troponin I] Stat 12/22/24 11:45 Covid-19 + FLU A/B + RSV - PCR Stat 12/22/24 12:09 CT abdomen pelvis w con Stat Nitroglycerin (Nitroglycerin 0.4 Mg Sl Tab) 0.4 mg SL [id number] PRN PRN Reason: dyspnea Last Admin: 12/22/24 09:32 Dose: 0.4 mg Documented By: KAUSHIK Discontinued Medications Acetaminophen (Acetaminophen 325 Mg Tablet) 975 mg PO NOW ONE Stop: 12/22/24 09:35 Last Admin: 12/22/24 09:37 Dose: 975 mg Documented By: KAUSHIK Aspirin (Aspirin 81 Mg Chew Tab) 324 mg PO NOW ONE Stop: 12/22/24 08:32 Last Admin: 12/22/24 08:43 Dose: 324 mg Documented By: KAUSHIK Furosemide 80 mg/ Sodium (Chloride) 58 mls @ 116 mls/hr IV NOW ONE Stop: 12/22/24 10:43 Last Infusion: 12/22/24 11:59 Dose: Infused Documented By: Admin: 12/22/24 11:35 Dose: 116 mls/hr Documented By: DAVID Magnesium Citrate (Magnesium Citrate 300 Ml Solution) 300 ml PO NOW ONE Stop: 12/22/24 14:04 Last Admin: 12/22/24 14:14 Dose: 300 ml Metoprolol Tartrate (Metoprolol Tartrate 5 Mg/5 Ml Inj) 5 mg IV NOW ONE Stop: 12/22/24 09:55 Last Admin: 12/22/24 09:57 Dose: 5 mg Documented By: KAUSHIK Vital Signs Vital signs: Vital Signs - 8 hr 12/22/24 08:04 12/22/24 08:06 12/22/24 08:07 Temperature 98.6 F Pulse Rate 88 97 H Respiratory Rate 30 H Blood Pressure 156/76 H 156/72 H Pulse Oximetry 94 93 Oxygen Delivery Method Room Air Nasal Cannula Oxygen Flow Rate 2 12/22/24 08:07 12/22/24 08:30 12/22/24 08:41 Temperature Pulse Rate 98 H 86 Respiratory Rate 24 Blood Pressure 164/74 H Pulse Oximetry 93 95 Oxygen Delivery Method Oxygen Flow Rate 12/22/24 08:41 12/22/24 09:00 12/22/24 09:18 Temperature Pulse Rate 86 86 86 Respiratory Rate 19 21 31 H Blood Pressure Pulse Oximetry 96 95 96 Oxygen Delivery Method Oxygen Flow Rate 12/22/24 09:18 12/22/24 09:30 12/22/24 09:32 Temperature Pulse Rate 82 83 Respiratory Rate 22 Blood Pressure 186/80 H 186/80 H Pulse Oximetry 96 Oxygen Delivery Method Oxygen Flow Rate 12/22/24 09:34 12/22/24 09:34 12/22/24 09:36 Temperature Pulse Rate 83 Respiratory Rate 31 H Blood Pressure 181/87 H 187/77 H Pulse Oximetry 96 Oxygen Delivery Method Oxygen Flow Rate 12/22/24 09:36 12/22/24 09:51 12/22/24 09:52 Temperature Pulse Rate 90 81 85 Respiratory Rate 20 Blood Pressure Pulse Oximetry 94 96 96 Oxygen Delivery Method Nasal Cannula Oxygen Flow Rate 2 12/22/24 09:52 12/22/24 09:55 12/22/24 09:56 Temperature Pulse Rate 81 Respiratory Rate 20 Blood Pressure 206/83 H 188/78 H Pulse Oximetry 96 Oxygen Delivery Method Oxygen Flow Rate 12/22/24 09:56 12/22/24 10:00 12/22/24 10:01 Temperature Pulse Rate 83 79 Respiratory Rate 26 H 24 Blood Pressure 175/69 H Pulse Oximetry 96 96 Oxygen Delivery Method Oxygen Flow Rate 12/22/24 10:01 12/22/24 10:05 12/22/24 10:06 Temperature Pulse Rate 77 74 Respiratory Rate 21 Blood Pressure 156/79 H Pulse Oximetry 97 96 Oxygen Delivery Method Oxygen Flow Rate 12/22/24 10:06 12/22/24 10:10 12/22/24 10:10 Temperature Pulse Rate 73 75 Respiratory Rate 29 H 22 Blood Pressure 159/70 H Pulse Oximetry 95 96 Oxygen Delivery Method Oxygen Flow Rate 12/22/24 10:15 12/22/24 10:16 12/22/24 10:16 Temperature Pulse Rate 73 72 Respiratory Rate 17 26 H Blood Pressure 170/73 H Pulse Oximetry 96 96 Oxygen Delivery Method Oxygen Flow Rate 12/22/24 10:20 12/22/24 10:20 12/22/24 10:25 Temperature Pulse Rate 71 73 Respiratory Rate 24 22 Blood Pressure 161/74 H Pulse Oximetry 96 95 Oxygen Delivery Method Oxygen Flow Rate 12/22/24 10:26 12/22/24 10:26 12/22/24 10:30 Temperature Pulse Rate 75 Respiratory Rate 25 H Blood Pressure 143/68 H 153/87 H Pulse Oximetry 96 Oxygen Delivery Method Oxygen Flow Rate 12/22/24 10:30 12/22/24 10:35 12/22/24 10:36 Temperature Pulse Rate 76 71 Respiratory Rate 27 H 19 Blood Pressure 130/71 Pulse Oximetry 96 97 Oxygen Delivery Method Oxygen Flow Rate 12/22/24 10:36 12/22/24 10:40 12/22/24 10:41 Temperature Pulse Rate 71 73 Respiratory Rate 30 H 28 H Blood Pressure 181/78 H Pulse Oximetry 96 95 Oxygen Delivery Method Oxygen Flow Rate 12/22/24 10:41 12/22/24 10:45 12/22/24 10:46 Temperature Pulse Rate 68 72 Respiratory Rate 28 H 21 Blood Pressure 174/97 H Pulse Oximetry 96 96 Oxygen Delivery Method Oxygen Flow Rate 12/22/24 10:46 12/22/24 10:50 12/22/24 10:51 Temperature Pulse Rate 73 71 74 Respiratory Rate 27 H 23 27 H Blood Pressure Pulse Oximetry 95 95 96 Oxygen Delivery Method Oxygen Flow Rate 12/22/24 10:51 12/22/24 10:55 12/22/24 10:56 Temperature Pulse Rate 72 Respiratory Rate 22 Blood Pressure 192/94 H 186/81 H Pulse Oximetry 96 Oxygen Delivery Method Oxygen Flow Rate 12/22/24 10:56 12/22/24 11:00 12/22/24 11:01 Temperature Pulse Rate 71 70 Respiratory Rate 24 30 H Blood Pressure 147/72 H Pulse Oximetry 96 96 Oxygen Delivery Method Oxygen Flow Rate 12/22/24 11:01 12/22/24 11:05 12/22/24 11:06 Temperature Pulse Rate 72 74 Respiratory Rate 24 25 H Blood Pressure 170/75 H Pulse Oximetry 96 96 Oxygen Delivery Method Oxygen Flow Rate 12/22/24 11:06 12/22/24 11:10 12/22/24 11:11 Temperature Pulse Rate 74 75 Respiratory Rate 24 24 Blood Pressure 178/74 H Pulse Oximetry 96 96 Oxygen Delivery Method Oxygen Flow Rate 12/22/24 11:11 12/22/24 11:15 12/22/24 11:16 Temperature Pulse Rate 69 75 Respiratory Rate 27 H 28 H Blood Pressure 158/67 H Pulse Oximetry 96 95 Oxygen Delivery Method Oxygen Flow Rate 12/22/24 11:16 12/22/24 11:20 12/22/24 11:25 Temperature Pulse Rate 72 73 74 Respiratory Rate 27 H 28 H 33 H Blood Pressure Pulse Oximetry 95 95 95 Oxygen Delivery Method Oxygen Flow Rate 12/22/24 11:30 12/22/24 11:35 12/22/24 11:40 Temperature Pulse Rate 68 75 Respiratory Rate 23 25 H Blood Pressure 129/72 Pulse Oximetry 96 96 Oxygen Delivery Method Oxygen Flow Rate 12/22/24 11:40 12/22/24 11:45 12/22/24 11:46 Temperature Pulse Rate 78 74 Respiratory Rate 35 H 23 Blood Pressure 152/73 H Pulse Oximetry 96 96 Oxygen Delivery Method Oxygen Flow Rate 12/22/24 11:46 12/22/24 11:50 12/22/24 11:55 Temperature Pulse Rate 75 74 76 Respiratory Rate 24 22 21 Blood Pressure Pulse Oximetry 95 94 94 Oxygen Delivery Method Oxygen Flow Rate 12/22/24 12:00 12/22/24 12:00 12/22/24 12:05 Temperature Pulse Rate 77 79 Respiratory Rate 26 H 32 H Blood Pressure 153/76 H Pulse Oximetry 94 94 Oxygen Delivery Method Oxygen Flow Rate 12/22/24 12:10 12/22/24 12:15 12/22/24 12:15 Temperature Pulse Rate 81 76 Respiratory Rate 40 H 36 H Blood Pressure 169/73 H Pulse Oximetry 92 Oxygen Delivery Method Oxygen Flow Rate 12/22/24 12:20 12/22/24 12:25 12/22/24 12:37 Temperature Pulse Rate 78 79 77 Respiratory Rate 26 H 24 Blood Pressure Pulse Oximetry 94 94 93 Oxygen Delivery Method Oxygen Flow Rate 12/22/24 12:39 12/22/24 12:39 12/22/24 12:40 Temperature Pulse Rate 78 78 Respiratory Rate 28 H 31 H Blood Pressure 151/78 H Pulse Oximetry 94 95 Oxygen Delivery Method Oxygen Flow Rate 12/22/24 12:45 12/22/24 12:46 12/22/24 12:46 Temperature Pulse Rate 77 77 Respiratory Rate 26 H 25 H Blood Pressure 167/72 H Pulse Oximetry 94 95 Oxygen Delivery Method Oxygen Flow Rate 12/22/24 12:50 12/22/24 12:55 12/22/24 13:00 Temperature Pulse Rate 81 89 81 Respiratory Rate 39 H 41 H 25 H Blood Pressure Pulse Oximetry 94 91 94 Oxygen Delivery Method Oxygen Flow Rate 12/22/24 13:00 12/22/24 13:05 12/22/24 13:10 Temperature Pulse Rate 80 81 Respiratory Rate 30 H 29 H Blood Pressure 171/82 H Pulse Oximetry 94 95 Oxygen Delivery Method Oxygen Flow Rate 12/22/24 13:15 12/22/24 13:16 12/22/24 13:16 Temperature Pulse Rate 80 80 Respiratory Rate 27 H 25 H Blood Pressure 163/73 H Pulse Oximetry 94 94 Oxygen Delivery Method Oxygen Flow Rate 12/22/24 13:20 12/22/24 13:25 12/22/24 13:30 Temperature Pulse Rate 86 81 Respiratory Rate 40 H 25 H Blood Pressure 156/88 H Pulse Oximetry 95 Oxygen Delivery Method Oxygen Flow Rate 12/22/24 13:30 12/22/24 13:35 12/22/24 13:40 Temperature Pulse Rate 79 85 83 Respiratory Rate 29 H 29 H 29 H Blood Pressure Pulse Oximetry 94 95 94 Oxygen Delivery Method Oxygen Flow Rate 12/22/24 13:45 12/22/24 13:46 12/22/24 13:46 Temperature Pulse Rate 80 84 Respiratory Rate 30 H 34 H Blood Pressure 177/74 H Pulse Oximetry 94 Oxygen Delivery Method Oxygen Flow Rate 12/22/24 13:50 12/22/24 13:55 12/22/24 14:00 Temperature Pulse Rate 87 87 Respiratory Rate 28 H 26 H Blood Pressure 169/85 H Pulse Oximetry Oxygen Delivery Method Oxygen Flow Rate 12/22/24 14:00 Temperature Pulse Rate 88 Respiratory Rate 28 H Blood Pressure Pulse Oximetry Oxygen Delivery Method Oxygen Flow Rate Medical Decision Making Lab Data 12/22/24 08:40 12/22/24 08:40 Labs: Lab Results 12/22/24 12/22/24 12/22/24 Range/Units 08:40 11:21 11:45 WBC 10.0 (4.5-11.0) X10^3/uL RBC 4.11 (4.0-5.2) X10^6/uL Hgb 11.5 L (12.0-16.0) g/dL Hct 34.5 L (36-46) % MCV 83.8 (80-100) fL MCH 27.9 (26-34) PG MCHC 33.3 (30-36) % RDW 17.4 H (11.6-14.8) % Plt Count 310 (150-400) X10^3/uL Neut % (Auto) 79.6 H (50-75) % Lymph % (Auto) 14.2 L (25-40) % J[place] % (Auto) 4.9 (3-14) % Eos % (Auto) 0.6 L (2-4) % Baso % (Auto) 0.7 (0-2) % Neut # (Auto) 8000 H (1818-3780) /uL Lymph # (Auto) 1400 (7863-8777) /uL Jerauld # (Auto) 500 (0-900) /uL Eos # (Auto) 100 (0-450) /uL Baso # (Auto) 100 (0-100) /uL Sodium 137 (137-145) mmol/L Potassium 3.7 (3.4-5.1) mmol/L Chloride 102 (98-107) mmol/L Carbon Dioxide 23 (22-32) mmol/L BUN 12 (7-17) mg/dL Creatinine 0.71 (0.52-1.04) mg/dL Estimated GFR > 60 (>60) mL/min BUN/Creatinine Ratio 16.9 (6-22) Glucose 363 H (70-99) mg/dL Calcium 9.2 (8.4-10.2) mg/dL Total Bilirubin 0.8 (0.2-1.3) mg/dL AST 36 (14-36) IU/L ALT 23 (<35) IU/L Alkaline Phosphatase 191 H (38-126) U/L Total Creatine Kinase 46 (30-135) U/L Troponin I < 0.012 < 0.012 (0.01-0.034) ng/mL NT-Pro-B Natriuret Pep 423 H (<125) pg/mL Total Protein 8.3 H (6.3-8.2) g/dL Albumin 4.2 (3.5-5.0) g/dL Globulin 4.1 (1.7-4.1) g/dL Albumin/Globulin Ratio 1.0 (1.0-2.8) Lipase 124 (23-300) U/L SARS-CoV-2 (PCR) Negative (Negative) Influenza A (RT-PCR) Flu a negative (NEGATIVE) Influenza B (RT-PCR) Flu b negative (NEGATIVE) RSV (PCR) Negative (Negative) Imaging Data CT scan - chest: Radiologist's Impression: PROCEDURE: CT ANGIO CHEST PE PROTOCOL INDICATIONS: severe dyspnea TECHNIQUE: After the administration of intravenous contrast, 2 mm thick sections acquired from the pulmonary apices to the posterior costophrenic angles. 3-dimensional maximum intensity projection (MIP) coronal and sagittal reformats were then acquired through the thorax. For radiation dose reduction, the following was used: automated exposure control, adjustment of mA and/or kV according to patient size. COMPARISON: [facility], CT, CT ANGIO CHEST ABDOMEN PELVIS, 05/11/2022, 12:18. FINDINGS: Image quality: Mild motion artifact Lungs and pleura: Mild diffuse septal thickening. Mild left lower lung ground-glass opacities. Focal ground-glass opacity also seen in the medial portion of the right lower lung. Basal atelectasis also present. Small bilateral effusions. Some of these fusion extends into the left major fissure. Mediastinum, heart, and esophagus: No acute pulmonary embolism. The distal-most arteries are obscured by motion artifact. Unremarkable esophagus. Borderline cardiomegaly. Left atrial appendage device. Coronary calcifications. Mediastinal clips. No enlarged lymph nodes by size criteria. Prominent mediastinal lymph nodes are present, which may be reactive. Chest wall and thyroid: Unremarkable Upper abdomen: Unremarkable on this arterial phase study Bones: There are degenerative osseous findings. Sternotomy wires are present. IMPRESSION: No acute pulmonary embolism. The distal-most arteries are obscured by motion artifact. Small effusions and pulmonary septal thickening likely edema. More focal ground-glass opacities also present in the lower lobes, possibly infectious/inflammatory. Prominent mediastinal lymph nodes may be reactive. Consider future imaging surveillance to assess for resolution. Other findings above. Dictated by: Dawson Martinez M.D. on 12/22/2024 at 9:22 CT scan - abdomen/pelvis: Radiologist's Impression: [address] [address] [address] Scan Report Signed Patient: Jessenia Peres MR#: [id number] : 1955 Acct:[id number] Age/Sex: 69 / F Date of Service: 12/22/24 Loc: ED Accession Number: [id number] Procedure: CT abdomen pelvis w con Ordering Provider: Millie Gonzalez MD PROCEDURE: CT ABDOMEN PELVIS W CON INDICATIONS: abdominal pain, dyspnea TECHNIQUE: After the administration of intravenous contrast, axial sections acquired from the lung bases to the pubic symphysis. Coronal and sagittal reformats were performed. For radiation dose reduction, the following was used: automated exposure control, adjustment of mA and/or kV according to patient size. COMPARISON: [facility], CT, CT ANGIO CHEST ABDOMEN PELVIS, 05/11/2022, 12:18. FINDINGS: Image quality: Diagnostic Lower chest: Small bilateral pleural effusions. Chest findings are separately dictated. Cardiomegaly. Mildly enlarged distal periesophageal lymph nodes are again seen, possibly reactive Liver: Hepatomegaly at 21 cm Gallbladder and biliary system: Cholecystectomy clips. CBD measures 9 mm, which is the upper limit of normal allowing for post cholecystectomy state Pancreas: Mild parenchymal atrophy. No ductal dilation. Small head calcifications probably from prior inflammation. Spleen: Nonenlarged Adrenals: No discrete nodules Kidneys: No solid renal mass. No hydronephrosis. Vessels and lymph nodes: The main portal vein is patent. No abdominal aortic aneurysm. Incidentally noted duplicated IVC. No enlarged lymph nodes by size criteria Bowel and peritoneum: No small bowel obstruction. No drainable abscess or ascites. Colonic diverticulosis. Moderate overall colorectal fecal loading. No acute diverticular inflammation identified. Nondilated appendix Body wall: Unremarkable Pelvis: Density in the bladder, likely from prior excreted contrast. Bones: No aggressive appearing osseous abnormality. There are degenerative changes. IMPRESSION: No acute abdominal pelvic abnormality. Nondilated appendix. Moderate colorectal fecal loading. Colonic diverticula are seen without focal inflammation. Hepatomegaly. Small pancreatic calcifications likely from prior inflammation. Chest findings are separately dictated. Other findings above Dictated by: Dawson Martinez M.D. on 12/22/2024 at 12:02 MDM Narrative Medical decision making narrative: CC: Acute dyspnea with left-sided chest pain Complicating co-morbidities: Known severe coronary artery disease, chronic atrial fibrillation Data collected from: patient, medics Medical records reviewed: Primary care visit from August 14 is reviewed Patient states that she is followed by Dr. Paige at [facility] however I do not see any notes from her within the last Differential considered: Acute coronary syndrome, STEMI, congestive heart failure, patient does not have asthma in the past has not responded to inhalers, pulmonary embolism Exam documented above, pertinent findings include: Tachypnea, tachycardia, dyspnea despite appropriate oxygenation, minor bibasilar crackles, no other secondary signs of congestive heart failure, significant anemia Lab Test results independently reviewed as above. Pertinent findings: CBC is unremarkable. Hemoglobin is 11.5 platelets are normal Chemistries are reassuring Troponin is undetectable ProBNP is minimally elevated at 423 Independently reviewed EKG: EKG shows her chronic atrial fibrillation at a rate of 100 Repeat EKG done while she is complaining of recurrent dyspnea shows no significant changes, rate is at 63 Imaging studies independently reviewed: Chest x-ray does show cardiomegaly, small left effusion that was appreciated in January of [address] shows: No pulmonary edema, Small effusions and pulmonary septal thickening likely edema. More focal ground-glass opacities also present in the lower lobes, possibly infectious/inflammatory.Prominent mediastinal lymph nodes may be reactive. Treatments: Aspirin and Tylenol given Re-evaluations: Sublingual nitro did not change her dyspnea or decrease her blood pressure IV metoprolol given, HR to 80 and BP 156/70 - no change to dyspnea With CT scan results, IV Lasix given, we will add Respiratory panel, 2nd troponin is pending, she had had more chest pain and EKG was repeated with no changes. Still no obvious explanation and clinically still looks ill. Complaining of some abdominal bloating, I am adding a CT scan of the abdomen to see if there is something that is causing more restriction and inhibiting diaphragmatic inhibition Discussion: 69-year-old woman with complex cardiac history comes in complaining of acute dyspnea and tachypnea with normal saturations. No sign of acute coronary syndrome, pulmonary embolism, pneumothorax, significant anemia, BNP is minimally elevated with slight fluid overload appreciated on CT scan of the lungs. She is given 80 mg of IV Lasix and is feeling somewhat better. No signs of sepsis or alternate infection. She complains of abdominal distention, CT scan of the abdomen shows some air, mild stool burden no other abnormalities that might explain the tachypnea. Body habitus is such that with a distended belly her diaphragm is somewhat restricted and that may be part of the overall picture. She states that she typically uses 2 packs of MiraLax daily and milk of magnesia to help with her chronic constipation. Suggested that she increase the MiraLax to whatever doses required to have more regular bowel movements. We will send her home with some magnesium citrate to see if clearing out her bowels and a gas help with the distention and help her feel better overall. I did suggest that she increase her Lasix however she notes that more than 20 mg twice a day causes severe cramping and she is very reluctant to try that. Of the 80 mg IV given today and the minimal findings on physical exam I believe that is going to be acceptable. At this point I do not have a reason to keep her in the hospital, clinically she does look slightly improved and I am going to send her home with recommended outpatient follow up with her primary care physician Discharge Plan Departure Patient Disposition: Home Clinical Impression: Congestive heart failure, Acute dyspnea, Constipation Activity Restrictions/Additional Instructions: Thank you for coming in today You do have a frightening cardiac history and coming in with the acute shortness of breath without low oxygen levels is concerning. You are not having a heart attack, there was no blood clots in your lungs, you are not significantly anemic, there was no signs of infection or lung collapse. You do have a small amount of fluid collecting in your lung so I gave you an extra dose of Lasix in the emergency department. Please make sure you are continuing your Lasix at home. We did a CT scan of your belly because of distention. You do have quite a bit of stool as well as gas in your belly and with that pushing up on your diaphragm it will make it more difficult to breathe. You are given magnesium citrate to take when you get home, this should clean you out completely. After that restart the current regimen that you are using with daily MiraLax as to keep it soft and ?milk of magnesia to make it move?. If you find that you are getting worse or develop any new symptoms, please feel free to return to the emergency department for further evaluation. Prescriptions: No Action (DME) blood-glucose meter Kit See Rx Instructions .Route Qty: 1 0RF Rx Instructions: As directed to check blood sugar 3 times daily (DME) lancets 33 gauge misc See Rx Instructions .Route Qty: 100 0RF Rx Instructions: As directed to check blood glucose 3 times daily fluticasone propionate 50 mcg/actuation spray,suspension 1 spray intranasal BID PRN omeprazole 20 mg capsule,delayed release(DR/EC) 20 mg PO BID potassium chloride 20 mEq tablet,ER particles/crystals 20 meq PO BID furosemide 20 mg tablet 20 mg PO BID diltiazem HCl 360 mg capsule,extended release 24hr 360 mg PO DAILY metformin 500 mg tablet extended release 24 hr 500 mg PO ONCE PM Referrals: Raymond Levin MD [Primary Care Provider, Family Practice] Stand Alone Forms: Patient Portal/API
[2024-12-22] MEDS: ASPIRIN 81 MG CHEW TAB 324 MG PO (08:43)
[2024-12-22 08:47] LABS: Add Manual Diff / Slide Review NO; Basophils Absolute Auto 100 /uL (0-100); Basophils Percent Auto 0.7 % (0-2); Eosinophils Absolute Auto 100 /uL (0-450); Eosinophils Percent Auto 0.6 % (2-4); Hematocrit 34.5 % (36-46); Hemoglobin 11.5 g/dL (12.0-16.0); Lymphocytes Absolute Auto 1400 /uL (1100-4500); Lymphocytes Percent Auto 14.2 % (25-40); Mean Corpuscular HGB Conc 33.3 % (30-36); Mean Corpuscular Hemoglobin 27.9 PG (26-34); Mean Corpuscular Volume 83.8 fL (80-100); Monocytes Absolute Auto 500 /uL (0-900); Monocytes Percent Auto 4.9 % (3-14); Neutrophils Absolute Auto 8000 /uL (1500-7000); Neutrophils Percent Auto 79.6 % (50-75); Platelet Count 310 X10^3/uL (150-400); Red Blood Cell Count 4.11 X10^6/uL (4.0-5.2); Red Cell Distribution Width 17.4 % (11.6-14.8)
[2024-12-22 08:58] LABS: Alanine Aminotransferase 23 IU/L (<35); Albumin 4.2 g/dL (3.5-5.0); Alkaline Phosphatase 191 U/L (38-126); Aspartate Aminotransferase 36 IU/L (14-36); BUN Creatinine Ratio 16.9 (6-22); Bilirubin Total 0.8 mg/dL (0.2-1.3); Blood Urea Nitrogen 12 mg/dL (7-17); Calcium 9.2 mg/dL (8.4-10.2); Carbon Dioxide 23 mmol/L (22-32); Chloride 102 mmol/L (98-107); Creatine Kinase 46 U/L (30-135); Estimated Glomerular Filt Rate > 60 mL/min (>60); Globulin 4.1 g/dL (1.7-4.1); Glucose 363 mg/dL (70-99); HEMOLYSIS < 15 (0-50); Lipase 124 U/L (23-300); Potassium 3.7 mmol/L (3.4-5.1); Sodium 137 mmol/L (137-145); Total Protein 8.3 g/dL (6.3-8.2)
--- NOTE | 2024-12-22 08:59 | PC.NURSE ---
Pt arrived to ED via EMS with c/o SOB & dyspnea accompanied by intermittent 5/10 left-sided cp. Pt has extensive cardiac hx of cardiac arrest, chronic afibb w/watchman, quadruple CABG. Not anticoagulated. Pt tachypneic and having difficulty speaking in full sentences. Dr Gonzalez placed pt on 2L NC. States that she does not have cp at this time. A&Ox4.
[2024-12-22 09:08] LABS: NT-proBNP (BNP-Adult 18+) 423 pg/mL (<125)
[2024-12-22 09:11] LABS: Troponin I < 0.012 ng/mL (0.01-0.034)
--- NOTE | 2024-12-22 09:29 | DI.CT.S_ITS ---
PROCEDURE: CT ANGIO CHEST PE PROTOCOL INDICATIONS: severe dyspnea TECHNIQUE: After the administration of intravenous contrast, 2 mm thick sections acquired from the pulmonary apices to the posterior costophrenic angles. 3-dimensional maximum intensity projection (MIP) coronal and sagittal reformats were then acquired through the thorax. For radiation dose reduction, the following was used: automated exposure control, adjustment of mA and/or kV according to patient size. COMPARISON: [facility], CT, CT ANGIO CHEST ABDOMEN PELVIS, 05/11/2022, 12:18. FINDINGS: Image quality: Mild motion artifact Lungs and pleura: Mild diffuse septal thickening. Mild left lower lung ground- glass opacities. Focal ground-glass opacity also seen in the medial portion of the right lower lung. Basal atelectasis also present. Small bilateral effusions. Some of these fusion extends into the left major fissure. Mediastinum, heart, and esophagus: No acute pulmonary embolism. The distal-most arteries are obscured by motion artifact. Unremarkable esophagus. Borderline cardiomegaly. Left atrial appendage device. Coronary calcifications. Mediastinal clips. No enlarged lymph nodes by size criteria. Prominent mediastinal lymph nodes are present, which may be reactive. Chest wall and thyroid: Unremarkable Upper abdomen: Unremarkable on this arterial phase study Bones: There are degenerative osseous findings. Sternotomy wires are present. IMPRESSION: No acute pulmonary embolism. The distal-most arteries are obscured by motion artifact. Small effusions and pulmonary septal thickening likely edema. More focal ground-glass opacities also present in the lower lobes, possibly infectious/inflammatory. Prominent mediastinal lymph nodes may be reactive. Consider future imaging surveillance to assess for resolution. Other findings above. Dictated by: Dawson Martinez M.D. on 12/22/2024 at 9:22 Approved by: Dawson Martinez M.D. on 12/22/2024 at 9:27
[2024-12-22] MEDS: NITROGLYCERIN 0.4 MG SL TAB SL (09:32)
[2024-12-22] MEDS: ACETAMINOPHEN 325 MG TABLET 975 MG PO (09:37)
--- NOTE | 2024-12-22 09:53 | PC.NURSE ---
Pt remains hypertensive, SOB & dyspneic after giving [address] Gonzalez at bedside.
[2024-12-22] MEDS: METOPROLOL TARTRATE 5 MG/5 ML INJ IV (09:57)
--- NOTE | 2024-12-22 10:38 | EKG_ITS ---
[address] [address] Test Date: 2024-12-22 Pat Name: Jessenia Peres Department: Room: Gender: Female [employer] Director: : 1955 Requested By: Order Number: [id number] Reading MD: Mina Muhammad MD Measurements Intervals [place] Rate: 63 P: [place]: QRS: 27 QRSD: 92 T: 52 QT: 420 QTc: 429 Interpretive Statements Atrial fibrillation Septal infarct , age undetermined Electronically Signed On 12-24-2024 7:09:15 PDT by Mina Muhammad MD
[2024-12-22] MEDS: FUROSEMIDE 80 MG in SODIUM CHLORIDE 0.9% 50 ML 116 MG IV (11:35)
[2024-12-22 11:49] LABS: Troponin I < 0.012 ng/mL (0.01-0.034)
--- NOTE | 2024-12-22 12:09 | DI.CT.S_ITS ---
PROCEDURE: CT ABDOMEN PELVIS W CON INDICATIONS: abdominal pain, dyspnea TECHNIQUE: After the administration of intravenous contrast, axial sections acquired from the lung bases to the pubic symphysis. Coronal and sagittal reformats were performed. For radiation dose reduction, the following was used: automated exposure control, adjustment of mA and/or kV according to patient size. COMPARISON: [facility], CT, CT ANGIO CHEST ABDOMEN PELVIS, 05/11/2022, 12:18. FINDINGS: Image quality: Diagnostic Lower chest: Small bilateral pleural effusions. Chest findings are separately dictated. Cardiomegaly. Mildly enlarged distal periesophageal lymph nodes are again seen, possibly reactive Liver: Hepatomegaly at 21 cm Gallbladder and biliary system: Cholecystectomy clips. CBD measures 9 mm, which is the upper limit of normal allowing for post cholecystectomy state Pancreas: Mild parenchymal atrophy. No ductal dilation. Small head calcifications probably from prior inflammation. Spleen: Nonenlarged Adrenals: No discrete nodules Kidneys: No solid renal mass. No hydronephrosis. Vessels and lymph nodes: The main portal vein is patent. No abdominal aortic aneurysm. Incidentally noted duplicated IVC. No enlarged lymph nodes by size criteria Bowel and peritoneum: No small bowel obstruction. No drainable abscess or ascites. Colonic diverticulosis. Moderate overall colorectal fecal loading. No acute diverticular inflammation identified. Nondilated appendix Body wall: Unremarkable Pelvis: Density in the bladder, likely from prior excreted contrast. Bones: No aggressive appearing osseous abnormality. There are degenerative changes. IMPRESSION: No acute abdominal pelvic abnormality. Nondilated appendix. Moderate colorectal fecal loading. Colonic diverticula are seen without focal inflammation. Hepatomegaly. Small pancreatic calcifications likely from prior inflammation. Chest findings are separately dictated. Other findings above Dictated by: Dawson Martinez M.D. on 12/22/2024 at 12:02 Approved by: Dawson Martinez M.D. on 12/22/2024 at 12:07
[2024-12-22 12:27] LABS: Influenza A - CEPHEID Flu A NEGATIVE (NEGATIVE); Influenza B - CEPHEID Flu B NEGATIVE (NEGATIVE); Respiratory Syncytial Virus Negative (Negative)
[2024-12-22 12:28] LABS: COVID-19 CEPHEID 4-PLEX PCR Negative (Negative)
[2024-12-22] MEDS: MAGNESIUM CITRATE 300 ML SOLUTION PO (14:14)
== END 2024-12-22 14:55 | disposition home or self-care (01) ==
PROVIDERS: Emergency Provider Emergency Medicine; PCP Family Medicine
DX: I50.9 Heart failure, unspecified (principal); R06.00 Dyspnea, unspecified; K59.00 Constipation, unspecified; R07.9 Chest pain, unspecified; R10.9 Unspecified abdominal pain
CPT/HCPCS: 0241U; 71045; 71275; 74177; 80053; 82550; 83690; 83880; 84484; 85025; 93005; 93010; 96365; 96375; 99285; J1938; Q9967

== ENCOUNTER → 2025-01-15 11:42 | Outpatient (CLI) | payer MEDICARE, SELFPAY ==
--- NOTE | 2025-01-15 11:44 | DI.RAD.S_ITS ---
PROCEDURE: XR LUMBAR SPINE MIN 4V INDICATIONS: BACK PAIN TECHNIQUE: 5 views of the lumbar spine were acquired, including bilateral oblique views. COMPARISON: [facility], MR, MR LUMBAR SPINE WO CON, 09/21/2023, 16:50. [facility], CR, XR LUMBAR SPINE 2-3V, 06/09/2023, 15:43. [facility], CT, CT ABDOMEN PELVIS W CON, 12/22/2024, 12:21. FINDINGS: Bones: 5 nonrib-bearing vertebrae are present. No vertebral body compression fractures. No suspicious bony lesions. Mild dextroconvex scoliotic curvature is seen. No focal AP alignment abnormality is seen. The disc heights are well preserved. Significant lower lumbar spine facet arthropathy can be seen. There is moderate superior joint space narrowing seen of both hips, right worse than left, with associated remodeling changes with subchondral sclerosis and osteophyte formation. Soft tissues: Overlying bowel gas pattern is normal. No suspicious soft tissue calcifications. Atherosclerotic calcification is noted. Cholecystectomy clips are seen. Oblique images: No pars defects. IMPRESSION: Degenerative changes are seen, with lower lumbar spine facet arthropathy. Bilateral hip degenerative change can also be seen. Dictated by: Alexis Lal M.D. on 01/15/2025 at 11:29 Approved by: Alexis Lal M.D. on 01/15/2025 at 11:31
== END ==
PROVIDERS: PCP Family Medicine; Referring Provider Orthopaedic Surgery; Visit Provider Orthopaedic Surgery
DX: M47.816 Spondylosis without myelopathy or radiculopathy, lumbar region (principal); M54.9 Dorsalgia, unspecified
CPT/HCPCS: 72110

== ENCOUNTER 2025-01-19 04:22 | Emergency (ER) | payer MEDICARE, SELFPAY ==
--- NOTE | 2025-01-19 05:00 | DI.CT.S_ITS ---
PROCEDURE: CT ABDOMEN PELVIS WO CON INDICATIONS: right flank pain TECHNIQUE: CT of the abdomen and pelvis was obtained without intravenous contrast. Coronal and sagittal reformats were performed. For radiation dose reduction, the following was used: automated exposure control, adjustment of mA and/or kV according to patient size. COMPARISON: None. FINDINGS: Image quality: Diagnostic. Lower Chest: No significant findings. ABDOMEN: Liver: No contour-deforming mass. Moderate hepatomegaly, 22 cm possible low- attenuation lesion in the right hepatic lobe measures 1 cm. Gallbladder: Cholecystectomy. Biliary ducts: No biliary dilation. Pancreas: No ductal dilation. Spleen: Size is within normal limits. Adrenal Glands: No adrenal nodules. Kidneys and Ureters: No hydronephrosis. No contour-deforming mass. Left renal cyst Stomach and Bowel: Normal colonic caliber, without significant wall thickening. Peritoneum: No abnormal intraperitoneal fluid. No free air. Ventral Wall: No significant hernia. Abdominal Nodes: No retroperitoneal or mesenteric adenopathy by size criteria. Vessels: Aorta and inferior vena cava are normal in size. PELVIS: Pelvic Organs: Unremarkable. Bladder: Unremarkable. Pelvic Nodes: No enlarged lymph nodes. Miscellaneous: No inguinal hernias are seen. Bones: No aggressive osseous abnormality. IMPRESSION: No acute CT findings abdomen and pelvis Hepatomegaly Note: This final report is concordant with the preliminary after-hours interpretation provided by [facility] Approved by: Spencer La M.D. on 01/19/2025 at 9:35
--- NOTE | 2025-01-19 05:01 | ED.GENADULT ---
HPI - General Adult General Chief complaint: Back Pain/Injury Stated complaint: Severe back pain mid rt x3 days, advised by medics Time Seen by Provider: 01/19/25 04:41 History of Present Illness HPI narrative: 69-year-old female with history of hypertension, diabetes mellitus, hypercholesterolemia, remote cholecystectomy, CAD status post remote multivessel CABG, chronic low back pain, gastritis, CHF, status post Watchman procedure for atrial fibrillation no longer on anticoagulation. Complains of 3 days duration right flank pain, constant, waxing and waning quality, now more anterior. No history of kidney stones recalled. No frequent or painful urination. No change in urine color. Recent diarrhea with no black or red color, nonmucoid in appearance. No recent exposure to antibiotics recalled. No injury trauma or new activities. No skin rashes. Related Data Home Medications ?Medication ?Instructions ?Recorded ?Confirmed diltiazem HCl 360 mg 360 mg PO DAILY 07/04/24 01/15/25 capsule,extended release 24 hr fluticasone propionate 50 1 spray intranasal BID PRN 07/04/24 01/15/25 mcg/actuation nasal spray,suspension furosemide 20 mg tablet 20 mg PO BID 07/04/24 01/15/25 omeprazole 20 mg capsule,delayed 20 mg PO BID 07/04/24 01/15/25 release potassium chloride 20 mEq 20 meq PO BID 07/04/24 01/15/25 tablet,extended release(part/cryst) metformin 500 mg tablet,extended 500 mg PO ONCE PM 12/04/24 01/15/25 release 24 hr Previous Rx's ?Medication ?Instructions ?Recorded blood-glucose meter #1 ea 08/16/24 lancets 33 gauge #100 ea 08/16/24 sucralfate 1 gram tablet (Carafate) 1 g PO BID #60 tabs 01/19/25 Allergies Allergy/AdvReac Type Severity Reaction Status Date / Time epinephrine (EPINEPHRINE) Allergy Unknown doesn't Verified 01/19/25 05:21 work lisinopril Allergy Unknown Stroke Verified 01/19/25 05:21 Wwzrldd-VOY-MeI Reductase AdvReac Severe Joint Pain Verified 01/19/25 05:21 Inhibitor codeine (CODEINE) AdvReac Unknown Hives Verified 01/19/25 05:21 gabapentin AdvReac Unknown Verified 01/19/25 05:21 naproxen AdvReac Unknown Verified 01/19/25 05:21 Patient History Medical History (Updated 01/19/25 @ 06:31 by Gelacio Dunn MD) Lumbar spondylosis Low back pain Spondylolisthesis at L4-L5 level Ovarian cyst Irregular menstrual cycle Heavy menstrual period Endometriosis Gastritis Esophageal spasm (~2022) Heart failure Atrial fibrillation (~2019) Aortic stenosis (~2019) Cardiac arrest (~2017) Diabetes mellitus BMI greater than 40 History of epistaxis Hypertension Pigmented nevus Skin neoplasm COVID-19 Surgical History (Updated 07/31/24 @ 19:44 by Kyara Talavera) Anesthesia Polyp of duodenum (~2023) Pacemaker (~2023) S/P triple vessel bypass (~2019) History of neck surgery (~2008) History of cataract removal with insertion of prosthetic lens (~2012) History of hysterectomy (~2002) Family History (Updated 07/31/24 @ 19:57 by Kyara Talavera) Father Hypertension Mother History of heart disease Hypertension Brother History of heart disease Hypertension Brother Hypertension Grandfather No problems noted. Grandmother History of heart disease History of heart attack Grandfather No problems noted. Grandmother Lupus Social History Smoking Status: Never smoker alcohol intake frequency: a few times a week Alcohol type: wine Exam Narrative Exam Narrative: GENERAL: Well-developed patient, in mild distress. HEAD: Atraumatic. Normocephalic. EYES: Pupils equal round and reactive. Extraocular motions intact. No scleral icterus. No injection or drainage. ENT: Nose without bleeding, purulent drainage. Throat without erythema, tonsillar hypertrophy or exudate. Airway patent. NECK: Trachea midline. Non tender CARDIOVASCULAR: Regular rate and rhythm without murmurs, gallops, or rubs. RESPIRATORY: Clear to auscultation. Breath sounds equal bilaterally. No wheezes, rales, or rhonchi. GASTROINTESTINAL: Abdomen soft, non-tender, nondistended. EXTREMITIES: No edema or joint tenderness. BACK: Nontender without deformity or crepitance. No flank tenderness. NEURO: AOx3. Motor functions grossly nonfocal. SKIN: No rash or erythema of visible areas Initial Vital Signs Initial Vital Signs: Vital Signs Pulse Rate 101 H 01/19/25 05:18 Respiratory Rate 26 H 01/19/25 05:18 Blood Pressure 155/96 H 01/19/25 05:18 Pulse Oximetry 97 01/19/25 05:18 Oxygen Delivery Method Room Air 01/19/25 05:18 Course Orders Ordered: Discontinued Medications Morphine Sulfate (Morphine 4 Mg/Ml Inj) 4 mg IV NOW ONE Stop: 01/19/25 06:05 Last Admin: 01/19/25 06:11 Dose: 4 mg Documented By: LINSEY Ondansetron HCl (Ondansetron 4 Mg/2 Ml Inj) 4 mg IV NOW ONE Stop: 01/19/25 06:05 Last Admin: 01/19/25 06:11 Dose: 4 mg Documented By: LINSEY Vital Signs Vital signs: Vital Signs - 8 hr 01/19/25 05:18 01/19/25 05:18 01/19/25 05:21 Temperature 98.8 F Pulse Rate 101 H 107 H Respiratory Rate 26 H 22 Blood Pressure 155/96 H 155/96 H Pulse Oximetry 97 97 Oxygen Delivery Method Room Air Room Air 01/19/25 05:30 01/19/25 05:30 01/19/25 06:00 Temperature Pulse Rate 104 H Respiratory Rate 24 Blood Pressure 132/84 132/82 Pulse Oximetry 98 Oxygen Delivery Method Room Air 01/19/25 06:00 01/19/25 06:13 01/19/25 06:13 Temperature Pulse Rate 100 H 92 H Respiratory Rate 24 Blood Pressure 148/90 H Pulse Oximetry 97 96 Oxygen Delivery Method Room Air 01/19/25 06:30 01/19/25 06:30 Temperature Pulse Rate 96 H Respiratory Rate 18 Blood Pressure 121/83 Pulse Oximetry 95 Oxygen Delivery Method Room Air Medical Decision Making Lab Data Lab results reviewed: Yes I reviewed the patient's lab results. Lab results narrative: White blood cell count 8800, hemoglobin 12.4, platelets adequate. Glucose 260 with known history of diabetes. Normal renal function, serum CO2, electrolytes. Mild alkaline phosphatase elevation, other liver functions unremarkable. Lipase normal. Urinalysis contaminated but not obviously infected. 01/19/25 05:58 01/19/25 05:58 Labs: Lab Results 01/19/25 01/19/25 Range/Units 05:58 06:08 WBC 8.8 (4.5-11.0) X10^3/uL RBC 4.38 (4.0-5.2) X10^6/uL Hgb 12.4 (12.0-16.0) g/dL Hct 36.3 (36-46) % MCV 82.9 (80-100) fL MCH 28.2 (26-34) PG MCHC 34.0 (30-36) % RDW 16.9 H (11.6-14.8) % Plt Count 318 (150-400) X10^3/uL Neut % (Auto) 72.5 (50-75) % Lymph % (Auto) 18.7 L (25-40) % Cassia % (Auto) 7.2 (3-14) % Eos % (Auto) 0.9 L (2-4) % Baso % (Auto) 0.7 (0-2) % Neut # (Auto) 6400 (7522-6205) /uL Lymph # (Auto) 1600 (7419-6324) /uL [place] # (Auto) 600 (0-900) /uL Eos # (Auto) 100 (0-450) /uL Baso # (Auto) 100 (0-100) /uL Sodium 138 (137-145) mmol/L Potassium 3.7 (3.4-5.1) mmol/L Chloride 105 (98-107) mmol/L Carbon Dioxide 22 (22-32) mmol/L BUN 17 (7-17) mg/dL Creatinine 0.88 (0.52-1.04) mg/dL Estimated GFR > 60 (>60) mL/min BUN/Creatinine Ratio 19.3 (6-22) Glucose 260 H (70-99) mg/dL Calcium 9.3 (8.4-10.2) mg/dL Total Bilirubin 0.7 (0.2-1.3) mg/dL AST 33 (14-36) IU/L ALT 22 (<35) IU/L Alkaline Phosphatase 214 H (38-126) U/L Total Protein 8.4 H (6.3-8.2) g/dL Albumin 4.2 (3.5-5.0) g/dL Globulin 4.2 H (1.7-4.1) g/dL Albumin/Globulin Ratio 1.0 (1.0-2.8) Lipase 117 (23-300) U/L Ur Bilirubin Confirm Negative (Negative) Urine RBC None seen (0-5/HPF) Urine WBC None seen (0-5/HPF) Ur Squamous Epith Cells 10-30 /hpf H (0-5/HPF) Urine Bacteria Few (2-10) H (None) Ur Culture Indicated? Cult not indicated Vol Urine Centrifuged 10ml (spun) Urine Dip Bedside Urine Glucose 500 mg/dl Bedside Urine Bilirubin + 1 Bedside Urine Ketone + 15 Urine Specific [place] 1.025 Bedside Urine Occult Blood - Negative Bedside Urine pH 6.0 Bedside Urine Protein + 30 Bedside Urine Urobilinogen - Negative Bedside Urine Nitrite - Negative Bedside Urine Leukocytes - Negative Esterase Point of care testing: Urine Dip Bedside Urine Glucose 500 mg/dl Bedside Urine Bilirubin + 1 Bedside Urine Ketone + 15 Urine Specific [place] 1.025 Bedside Urine Occult Blood - Negative Bedside Urine pH 6.0 Bedside Urine Protein + 30 Bedside Urine Urobilinogen - Negative Bedside Urine Nitrite - Negative Bedside Urine Leukocytes - Negative Esterase ECG Data Attestation: I personally reviewed and interpreted this ECG as follows: Interpretation: 0534, atrial fibrillation with ventricular response rate 98, incomplete right bundle branch block pattern noted. QRS 98, QTC 462. MDM Narrative Medical decision making narrative: 69-year-old female with history of remote cholecystectomy, known atrial fibrillation, no chronic anticoagulation, no known kidney stones, constant right-sided flank area pain for the last 4 days, waxing and waning, known more anterior. DX consider ureteral stone, UTI, colitis, diverticulitis, PUD, choledocholithiasis, pancreatitis, other. EKG shows atrial fibrillation with rate 98, right bundle pattern. IV morphine, pain symptoms improved. Lab data: White blood cell count 8800, hemoglobin 12.4, platelets adequate. Glucose 260, known history of diabetes mellitus. Normal renal function, serum CO2, electrolytes. Mild alkaline phosphatase elevation, other liver functions unremarkable. Lipase normal. Urinalysis contaminated but not obviously infected. CT abdomen and pelvis noncontrast. Impressions: ?No acute abdominopelvic pathology identified. No urinary tract abnormality. Normal appendix. Right lower lobe liver lesion indeterminate density, we would benefit from comparison to any prior study if any are available. Additional findings include left renal cyst, prior cholecystectomy, moderate hepatomegaly.? See tele radiology report. Liver lesion small, report given to patient, made aware of that finding. Advised further follow up as an outpatient with PCP for this unrealted problem. Possible duodenal ulcer or acid related component to symptoms, continue omeprazole advise, add Carafate, prescription sent to her pharmacy. Could consider reduction in metformin dose from 1000 back to 500 mg, if this increased recent dose change is related to any discomfort to that she is having now. Follow up with PCP in clinic tomorrow 01/20/25Monday morning as scheduled. Consider referral for upper endoscopy outpatient. Return precautions discussed. Home with family. Discharge Plan Departure Patient Disposition: Home Clinical Impression: Acute right flank pain Activity Restrictions/Additional Instructions: Right flank area back discomfort of unclear cause, history of remote gallbladder surgical removal. EKG and blood testing not suggestive of heart attack issues at this time. Further cardiac testing could be scheduled as an outpatient if needed. Recent increased dose of metformin might be a cause of your right flank, but unclear. Serum studies largely unremarkable today. Urinalysis negative today. CT abdomen and pelvis imaging today did show some enlargement of your liver, which could be a cause of discomfort in the right flank region. It is also possible to have a duodenal area ulcer. Consider adding Carafate acid binder medication to your ongoing omeprazole antacid, prescription sent to your pharmacy if you wanted to try this. If you use Carafate consider taking the doses after your regular medication an hour to later so that the Carafate does not interfere with the absorption of your regular medications. This is not to be used in place severe omeprazole but in addition to your omeprazole, continue your omeprazole for now. Consider upper endoscopy evaluation of the GI tract. Follow up with your regular doctor as scheduled tomorrow in clinic. Return earlier to this/nearest emergency department for any change worsening symptoms or any concerns prior. Prescriptions: New sucralfate [Carafate] 1 gram tablet 1 g PO BID Qty: 60 0RF No Action (DME) blood-glucose meter Kit See Rx Instructions .Route Qty: 1 0RF Rx Instructions: As directed to check blood sugar 3 times daily (DME) lancets 33 gauge misc See Rx Instructions .Route Qty: 100 0RF Rx Instructions: As directed to check blood glucose 3 times daily fluticasone propionate 50 mcg/actuation spray,suspension 1 spray intranasal BID PRN omeprazole 20 mg capsule,delayed release(DR/EC) 20 mg PO BID potassium chloride 20 mEq tablet,ER particles/crystals 20 meq PO BID furosemide 20 mg tablet 20 mg PO BID diltiazem HCl 360 mg capsule,extended release 24hr 360 mg PO DAILY metformin 500 mg tablet extended release 24 hr 500 mg PO ONCE PM Referrals: Raymond Levin MD [Primary Care Provider, Family Practice] Stand Alone Forms: Patient Portal/API
[2025-01-19 05:18] VITALS: BP 155/96; PULSE 101; RESP 26; O2SAT 97
[2025-01-19 05:21] VITALS: BP 155/96; PULSE 107; RESP 22; TEMP 37.1; O2SAT 97; BMI 42.5
[2025-01-19 05:30] VITALS: BP 132/84; PULSE 104; RESP 24; O2SAT 98
--- NOTE | 2025-01-19 05:34 | EKG_ITS ---
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
[2025-01-19 06:00] VITALS: BP 132/82; PULSE 100; RESP 24; O2SAT 97
[2025-01-19 06:08] LABS: Add Manual Diff / Slide Review NO; Hematocrit 36.3 % (36-46); Hemoglobin 12.4 g/dL (12.0-16.0); Lymphocytes Absolute Auto 1600 /uL (1100-4500); Mean Corpuscular HGB Conc 34.0 % (30-36); Mean Corpuscular Hemoglobin 28.2 PG (26-34); Mean Corpuscular Volume 82.9 fL (80-100); Platelet Count 318 X10^3/uL (150-400)
[2025-01-19] MEDS: ONDANSETRON 4 MG/2 ML INJ IV (06:11)
[2025-01-19] MEDS: MORPHINE 4 MG/ML INJ IV (06:11)
[2025-01-19 06:13] VITALS: BP 148/90; PULSE 92; O2SAT 96
[2025-01-19 06:28] LABS: Alanine Aminotransferase 22 IU/L (<35); Albumin 4.2 g/dL (3.5-5.0); Albumin Globulin Ratio 1.0 (1.0-2.8); Alkaline Phosphatase 214 U/L (38-126); Blood Urea Nitrogen 17 mg/dL (7-17); Calcium 9.3 mg/dL (8.4-10.2); Carbon Dioxide 22 mmol/L (22-32); Chloride 105 mmol/L (98-107); Estimated Glomerular Filt Rate > 60 mL/min (>60); Globulin 4.2 g/dL (1.7-4.1); Glucose 260 mg/dL (70-99); HEMOLYSIS 28 (0-50); Lipase 117 U/L (23-300); Potassium 3.7 mmol/L (3.4-5.1); Sodium 138 mmol/L (137-145); Total Protein 8.4 g/dL (6.3-8.2)
[2025-01-19 06:30] VITALS: BP 121/83; PULSE 96; RESP 18; O2SAT 95
[2025-01-19 06:34] LABS: Ictotest Urine Negative (Negative)
[2025-01-19 06:35] LABS: Culture Indicated Urine Cult Not Indicated
== END 2025-01-19 06:53 | disposition home or self-care (01) ==
PROVIDERS: Emergency Provider Emergency Medicine; PCP Family Medicine
DX: R10.9 Unspecified abdominal pain (principal)
CPT/HCPCS: 36415; 74176; 80053; 81003; 81015; 83690; 85025; 87086; 93005; 96374; 96375; 99284; J2270; J2405

== ENCOUNTER 2025-01-29 15:44 | Inpatient (IN) | payer MEDICARE, SELFPAY ==
[2025-01-29] VITALS (19 sets, daily range): BP systolic 134–187; BP diastolic 70–103; PULSE 65–144; RESP 12–22; TEMP 36.6; O2SAT 93–98; BMI 42.5
--- NOTE | 2025-01-29 16:13 | EKG_ITS ---
[address] [address] Test Date: 2025-01-29 Pat Name: Jessenia Peres Department: Room: Gender: Female [employer] Consultant: : 1955 Requested By: Order Number: [id number] Reading MD: Pawel Poole Measurements Intervals [place] Rate: 111 P: [place]: QRS: 42 QRSD: 98 T: 126 QT: 330 QTc: 448 Interpretive Statements Atrial fibrillation with rapid ventricular response Incomplete right bundle branch block Cannot rule out Anterior infarct , age undetermined Electronically Signed On 02-01-2025 9:41:35 PDT by Pawel Poole
[2025-01-29 16:15] LABS: Add Manual Diff / Slide Review NO; Hematocrit 34.7 % (36-46); Hemoglobin 11.7 g/dL (12.0-16.0); Lymphocytes Absolute Auto 1800 /uL (1100-4500); Mean Corpuscular HGB Conc 33.7 % (30-36); Mean Corpuscular Hemoglobin 27.9 PG (26-34); Mean Corpuscular Volume 82.9 fL (80-100); Platelet Count 356 X10^3/uL (150-400)
[2025-01-29 16:29] LABS: Alanine Aminotransferase 27 IU/L (<35); Albumin 4.3 g/dL (3.5-5.0); Albumin Globulin Ratio 1.0 (1.0-2.8); Alkaline Phosphatase 159 U/L (38-126); Blood Urea Nitrogen 15 mg/dL (7-17); Calcium 9.4 mg/dL (8.4-10.2); Carbon Dioxide 24 mmol/L (22-32); Chloride 103 mmol/L (98-107); Estimated Glomerular Filt Rate > 60 mL/min (>60); Globulin 4.2 g/dL (1.7-4.1); Glucose 295 mg/dL (70-99); HEMOLYSIS < 15 (0-50); Lipase 137 U/L (23-300); Potassium 3.9 mmol/L (3.4-5.1); Sodium 138 mmol/L (137-145); Total Protein 8.5 g/dL (6.3-8.2)
--- NOTE | 2025-01-29 18:09 | ED_ITS ---
HPI - Abdominal Pain General Chief Complaint: Abdominal Pain Stated Complaint: right flank pain Time Seen by Provider: 01/29/25 17:55 Source: patient Mode of arrival: Wheelchair History of Present Illness HPI narrative: 69-year-old female with history of congestive heart failure, obesity, diabetes mellitus, hypertension, gastritis, lumbar spondylolisthesis, atrial fibrillation. Complains of nontraumatic right upper quadrant and right flank area pain ongoing. Recent clinic visit with PCP, advised to titrate up her metformin dose as tolerated, not checking her sugars, taking same omeprazole medication. Two weeks ago seen here in ED with same right flank/abdominal pain, CT imaging at that time, suspected duodenal ulcer clinically, sucralfate added at that time to her omeprazole medication, not tolerating the sucralfate which she has subsequently discontinued. Admits to intermittent bloody stools but for many weeks, no black or red stools. Denies use of blood thinner medications. No injury trauma new activities. No painful or frequent urination. She has persisting and increasing right upper quadrant area discomfort, and right flank pain. Related Data Home Medications ?Medication ?Instructions ?Recorded ?Confirmed diltiazem HCl 360 mg 360 mg PO DAILY 07/04/2401/17 capsule,extended release 24 hr fluticasone propionate 50 1 spray intranasal BID PRN a llergy 07/04/24 01/30/25 mcg/actuation nasal symptoms spray,suspension furosemide 20 mg tablet 20 mg PO BID 07/04/24 omeprazole 20 mg capsule,delayed 20 mg PO BID 07/04/24 01/30/25 release potassium chloride 20 mEq 20 meq PO BID 07/04/2401/30 tablet,extended release(part/cryst) metformin 500 mg tablet,extended 500 mg PO ONCE PM 05/2001/30/25 release 24 hr Previous Rx's ?Medication ?Instructions ?Recorded blood-glucose meter #1 ea 08/16/24 lancets 33 gauge #100 ea 08/16/24 sucralfate 1 gram tablet (Carafate) 1 g PO BID #60 tab s 01/19/25 Allergies Allergy/AdvReac Type Severity Reaction Status Date / Time epinephrine (EPINEPHRINE) Allergy Unknown doesn't Verified 01/29/25 15:47 work lisinopril Allergy Unknown Stroke Verified 01/29/25 15:47 [id number] Reductase AdvReac Severe Joint Pain Verified 01/29/25 15:47 Inhibitor codeine (CODEINE) AdvReac Unknown Hives Verified 01/29/25 15:47 gabapentin AdvReac Unknown Verified 01/29/25 15:47 naproxen AdvReac Unknown Verified 01/29/25 15:47 Patient History Medical History (Updated 01/29/25 @ 21:01 by Gelacio Dunn MD) Lumbar spondylosis Low back pain Spondylolisthesis at L4-L5 level Ovarian cyst Irregular menstrual cycle Heavy menstrual period Endometriosis Gastritis Esophageal spasm (~2022) Heart failure Atrial fibrillation (~2019) Aortic stenosis (~2019) Cardiac arrest (~2017) Diabetes mellitus BMI greater than 40 History of epistaxis Hypertension Pigmented nevus Skin neoplasm COVID-19 Surgical History (Updated 07/31/24 @ 19:44 by Kyara Talavera) Anesthesia Polyp of duodenum (~2023) Pacemaker (~2023) S/P triple vessel bypass (~2019) History of neck surgery (~2008) History of cataract removal with insertion of prosthetic lens (~2012) History of hysterectomy (~2002) Family History (Updated 07/31/24 @ 19:57 by Kyara Talavera) Father Hypertension Mother History of heart disease Hypertension Brother History of heart disease Hypertension Brother Hypertension Grandfather No problems noted. Grandmother History of heart disease History of heart attack Grandfather No problems noted. Grandmother Lupus alcohol intake frequency: a few times a week Alcohol type: wine Exam Narrative Exam Narrative: GENERAL: Well-developed patient, in mild distress. HEAD: Atraumatic. Normocephalic. EYES: Pupils equal round and reactive. Extraocular motions intact. No scleral icterus. No injection or drainage. ENT: Nose without bleeding, purulent drainage. Throat without erythema, tonsillar hypertrophy or exudate. Airway patent. NECK: Trachea midline. Non tender CARDIOVASCULAR: Regular rate and rhythm without murmurs, gallops, or rubs. RESPIRATORY: Clear to auscultation. Breath sounds equal bilaterally. No wheezes, rales, or rhonchi. GASTROINTESTINAL: Abdomen soft, non-tender, nondistended. EXTREMITIES: No edema or joint tenderness. BACK: Nontender without deformity or crepitance. No flank tenderness. NEURO: AOx3. Motor functions grossly nonfocal. SKIN: No rash or erythema of visible areas Initial Vital Signs Initial Vital Signs: Vital Signs Temperature 97.8 F 01/29/25 15:47 Pulse Rate 107 H 01/29/25 15:47 Respiratory Rate 16 01/29/25 15:47 Blood Pressure 187/83 H 01/29/25 15:47 Pulse Oximetry 98 01/29/25 15:47 Oxygen Delivery Method Room Air 01/29/25 15:47 Course Orders Ordered: ED Orders 01/29/25 23:04 Hemoglobin and Hematocrit Stat Enoxaparin Sodium (Enoxaparin 40 Mg/0.4 Ml Syringe) 40 mg SUBCUT DAILY MAGDY Furosemide (Furosemide 20 Mg Tablet) 20 mg PO BID MAGDY Diltiazem HCl 125 mg/ Sodium (Chloride) 125 mls @ 5 mls/hr IV TITRATE MAGDY; Protocol Last Admin: 01/29/25 23:48 Dose: 5 mg/hr, 5 mls/hr Documented By: LW Insulin Human Lispro (Insulin Lispro 100 Unit/Ml 3ml Vial) 0 unit SUBCUT ACHS [facility]; Protocol Metformin HCl (Metformin Xr 500 Mg Tablet) 500 mg PO QD@1700 MAGDY Last Admin: 01/30/25 02:50 Dose: Not Given Documented By: CT Naloxone HCl (Naloxone 0.4 Mg/Ml Vial) 0.2 mg IV Q2MIN PRN PRN Reason: Opiate Reversal Ondansetron HCl (Ondansetron 4 Mg/2 Ml Inj) 4 mg IV NOW PRN PRN Reason: Nausea And Vomiting Last Admin: 01/30/25 02:58 Dose: 4 mg Documented By: CT Ondansetron HCl (Ondansetron 4 Mg Odt) 4 mg PO NOW PRN PRN Reason: Nausea And Vomiting Oxycodone HCl (Oxycodone Ir 5 Mg Tablet) 5 mg PO Q4HR PRN PRN Reason: Pain, Moderate (4-6) Oxycodone HCl (Oxycodone Ir 10 Mg Tablet) 10 mg PO Q4HR PRN PRN Reason: Pain, Severe (7-10) Last Admin: 01/30/25 02:49 Dose: 10 mg Documented By: CT Pantoprazole Sodium (Pantoprazole Dr 20 Mg Tablet) 20 mg PO BID MAGDY Sucralfate (Sucralfate 1 Gm Tablet) 1 gm PO BID [facility] Discontinued Medications Diltiazem HCl (Diltiazem 25 Mg/5 Ml Sdv) 10 mg IV NOW ONE Stop: 01/29/25 21:00 Last Admin: 01/29/25 21:15 Dose: 10 mg Documented By: JESENIA Diltiazem HCl (Diltiazem Cd 180 Mg Cap) 360 mg PO NOW ONE Stop: 01/29/25 21:00 Last Admin: 01/29/25 21:17 Dose: 360 mg Documented By: JESENIA Hydromorphone HCl (Hydromorphone Hcl 0.5 Mg/0.5 Ml Syringe) 0.5 mg IV NOW ONE Stop: 01/29/25 18:18 Last Admin: 01/29/25 18:30 Dose: 0.5 mg Documented By: PAOLA Hydromorphone HCl (Hydromorphone Hcl 0.5 Mg/0.5 Ml Syringe) 0.5 mg IV NOW ONE Stop: 01/29/25 20:24 Last Admin: 01/29/25 20:50 Dose: 0.5 mg Documented By: JESENIA Sodium Chloride (Normal Saline 0.9%) 1,000 mls @ 1,000 mls/hr IV BOLUS ONE Stop: 01/29/25 19:17 Last Infusion: 01/29/25 20:30 Dose: Infused Documented By: Admin: 01/29/25 18:29 Dose: 1,000 mls/hr Documented By: PAOLA Ondansetron HCl (Ondansetron 4 Mg/2 Ml Inj) 4 mg IV NOW ONE Stop: 01/29/25 18:18 Last Admin: 01/29/25 18:29 Dose: 4 mg Documented By: PAOLA Pantoprazole Sodium (Pantoprazole 40 Mg Vial) 80 mg IV NOW ONE Stop: 01/29/25 18:18 Last Admin: 01/29/25 18:29 Dose: 80 mg Documented By: PAOLA Vital Signs Vital signs: Vital Signs - 8 hr 01/29/25 21:00 01/29/25 21:00 01/29/25 21:15 Pulse Rate 129 H 144 H Respiratory Rate 16 Blood Pressure 151/84 H Pulse Oximetry 94 01/29/25 21:30 01/29/25 21:30 01/29/25 22:00 Pulse Rate 111 H 114 H Respiratory Rate 12 19 Blood Pressure 153/70 H Pulse Oximetry 94 94 01/29/25 22:03 01/29/25 22:04 01/29/25 22:04 Pulse Rate 121 H 120 H Respiratory Rate 17 21 Blood Pressure 181/103 H Pulse Oximetry 94 95 01/29/25 22:30 01/29/25 22:31 01/29/25 22:31 Pulse Rate 125 H 114 H Respiratory Rate 17 22 Blood Pressure 167/101 H Pulse Oximetry 93 94 01/29/25 23:00 01/29/25 23:00 01/29/25 23:30 Pulse Rate 117 H 124 H Respiratory Rate 18 21 Blood Pressure 178/79 H Pulse Oximetry 93 93 01/29/25 23:30 Pulse Rate Respiratory Rate Blood Pressure 181/101 H Pulse Oximetry MDM - Abdominal Pain Lab Data Attestation: I reviewed the patient's lab results. Lab results narrative: White blood cell count 9100, hemoglobin 11.7, platelets adequate. Glucose 295. Serum CO2 24, anion gap 11, not consistent with diabetic ketoacidosis. BUN 15 with creatinine 0.96 normal renal function. Normal electrolytes. Slight alkaline phosphatase and AST elevation, normal ALT and total bilirubin. Lipase normal. 01/29/25 23:04 01/29/25 16:05 Labs: Lab Results 01/29/25 01/29/25 01/29/25 Range/Units 16:01 16:05 19:17 WBC 9.1 (4.5-11.0) X10^3/uL RBC 4.19 (4.0-5.2) X10^6/uL Hgb 11.7 L (12.0-16.0) g/dL Hct 34.7 L (36-46) % MCV 82.9 (80-100) fL MCH 27.9 (26-34) PG MCHC 33.7 (30-36) % RDW 16.3 H (11.6-14.8) % Plt Count 356 (150-400) X10^3/uL Neut % (Auto) 72.6 (50-75) % Lymph % (Auto) 19.7 L (25-40) % [place] % (Auto) 5.9 (3-14) % Eos % (Auto) 0.6 L (2-4) % Baso % (Auto) 1.2 (0-2) % Neut # (Auto) 6600 (7103-1204) /uL Lymph # (Auto) 1800 (6034-6150) /uL [place] # (Auto) 500 (0-900) /uL Eos # (Auto) 100 (0-450) /uL Baso # (Auto) 100 (0-100) /uL PT 11.7 (9.4-12.5) SECONDS INR 1.0 (0.9-1.3) Sodium 138 (137-145) mmol/L Potassium 3.9 (3.4-5.1) mmol/L Chloride 103 (98-107) mmol/L Carbon Dioxide 24 (22-32) mmol/L BUN 15 (7-17) mg/dL Creatinine 0.96 (0.52-1.04) mg/dL Estimated GFR > 60 (>60) mL/min BUN/Creatinine Ratio 15.6 (6-22) Glucose 295 H (70-99) mg/dL Hemoglobin A1c 11.3 H (4.0-6.0) % Calcium 9.4 (8.4-10.2) mg/dL Total Bilirubin 0.6 (0.2-1.3) mg/dL AST 40 H (14-36) IU/L ALT 27 (<35) IU/L Alkaline Phosphatase 159 H (38-126) U/L Troponin I < 0.012 (0.01-0.034) ng/mL Total Protein 8.5 H (6.3-8.2) g/dL Albumin 4.3 (3.5-5.0) g/dL Globulin 4.2 H (1.7-4.1) g/dL Albumin/Globulin Ratio 1.0 (1.0-2.8) Lipase 137 (23-300) U/L 01/29/25 Range/Units 23:04 WBC (4.5-11.0) X10^3/uL RBC (4.0-5.2) X10^6/uL Hgb 11.6 L (12.0-16.0) g/dL Hct 35.2 L (36-46) % MCV (80-100) fL MCH (26-34) PG MCHC (30-36) % RDW (11.6-14.8) % Plt Count (150-400) X10^3/uL Neut % (Auto) (50-75) % Lymph % (Auto) (25-40) % [place] % (Auto) (3-14) % Eos % (Auto) (2-4) % Baso % (Auto) (0-2) % Neut # (Auto) (3073-1602) /uL Lymph # (Auto) (4776-2726) /uL [place] # (Auto) (0-900) /uL Eos # (Auto) (0-450) /uL Baso # (Auto) (0-100) /uL PT (9.4-12.5) SECONDS INR (0.9-1.3) Sodium (137-145) mmol/L Potassium (3.4-5.1) mmol/L Chloride (98-107) mmol/L Carbon Dioxide (22-32) mmol/L BUN (7-17) mg/dL Creatinine (0.52-1.04) mg/dL Estimated GFR (>60) mL/min BUN/Creatinine Ratio (6-22) Glucose (70-99) mg/dL Hemoglobin A1c (4.0-6.0) % Calcium (8.4-10.2) mg/dL Total Bilirubin (0.2-1.3) mg/dL AST (14-36) IU/L ALT (<35) IU/L Alkaline Phosphatase (38-126) U/L Troponin I (0.01-0.034) ng/mL Total Protein (6.3-8.2) g/dL Albumin (3.5-5.0) g/dL Globulin (1.7-4.1) g/dL Albumin/Globulin Ratio (1.0-2.8) Lipase (23-300) U/L Point of care testing: Urine Dip Bedside Urine Glucose 500 mg/dl Bedside Urine Bilirubin - Negative Bedside Urine Ketone - Negative Urine Specific [place] 1.005 Bedside Urine Occult Blood - Negative Bedside Urine pH 7.5 Bedside Urine Protein +/- 15 Bedside Urine Urobilinogen - Negative Bedside Urine Nitrite - Negative Bedside Urine Leukocytes - Negative Esterase Imaging Data CT angiogram GI bleeding protocol abdomen and pelvis: Radiologist's Impression: [address] [address] [address] Scan Report Signed Patient: Jessenia Peres MR#: [id number] : 1955 Acct:[id number] Age/Sex: 69 / F Date of Service: 01/29/25 Loc: ED Accession Number: [id number] Procedure: CT angio Abd/Pel GI Bleed Ordering Provider: Gelacio Dunn MD PROCEDURE: CT ANGIO ABD/PEL GI BLEED INDICATIONS: GI Bleeding protocol TECHNIQUE: After the administration of intravenous contrast, 2.5 mm thick sections acquired from the diaphragm to the symphysis. 10 mm maximum-intensity projection (MIP) reformats were then acquired. For radiation dose reduction, the following was used: automated exposure control. Delayed venous phase images were also acquired. COMPARISON: [facility], CT, CT ANGIO CHEST ABDOMEN PELVIS, 05/11/2022, 12:18. FINDINGS: Image Quality: Diagnostic. Abdominal aorta: No aortic aneurysm or evidence of acute aortic syndrome. Extensive atherosclerotic vascular calcifications. Mesenteric arteries: Patent without hemodynamically significant stenosis. Renal arteries: Patent without hemodynamically significant stenosis. OTHER: Lower Chest: Bibasilar atelectasis. Liver: No solid mass. Gallbladder: Surgically absent Biliary ducts: No biliary dilation. Pancreas: Homogeneous enhancement without focal lesions or pancreatic ductal dilatation. No peripancreatic inflammation or organized fluid collections. Spleen: Size is within normal limits. Adrenal Glands: No adrenal nodules. Kidneys and Ureters: No hydronephrosis. No solid mass. No complex renal cystic lesion which requires follow up. Left renal cysts. Bilateral ureters are normal in course and caliber. No renal stones. No ureteral stones. Stomach and Bowel: Normal colonic caliber, without significant wall thickening. Colonic diverticulosis without acute diverticulitis. Normal appendix. No evidence for small bowel obstruction or associated inflammatory changes. No findings to suggest acute gastrointestinal bleeding. Peritoneum: No abnormal intraperitoneal fluid. No free air. Ventral Wall: There is a fat-containing umbilical hernia without acute inflammation. There is mild stranding but appears to be chronic. Abdominal Nodes: No retroperitoneal or mesenteric adenopathy by size criteria. Vessels: Aorta and inferior vena cava are normal in size. Extensive atherosclerotic vascular calcifications. PELVIS: Pelvic Organs: Unremarkable. Bladder: Unremarkable. Pelvic Nodes: No enlarged lymph nodes. Miscellaneous: No inguinal hernias are seen. Bones: No aggressive osseous abnormality. No acute vertebral body compression fractures. Multilevel spondylitic changes throughout the imaged spine. No suspicious osseous lesions. IMPRESSION: CT angiogram of the abdomen and pelvis without evidence for acute aortic syndrome, aneurysmal dilatation, or acute gastrointestinal bleeding. No acute abnormalities identified. Colonic diverticulosis without acute diverticulitis. Normal appendix. Other chronic/non-acute findings as above. Dictated by: Alessio Carlson M.D. on 01/29/2025 at 20:39 Approved by: Alessio Carlson M.D. on 01/29/2025 at 20:45 [facility] Narrative Medical decision making narrative: 69-year-old female with history of obesity, diabetes mellitus, hypercholesterolemia, hypertension, remote cholecystectomy, CAD status post multivessel CABG, chronic low back pain, gastritis, CHF, history of atrial fibrillation status post Watchman procedure no longer on oral anticoagulation. She complains of ongoing right flank and right upper quadrant abdominal pain. Two weeks ago seen by me here, had same right flank right upper quadrant area discomfort, CT at that time showed fatty liver otherwise negative, sucralfate was added at discharge to her omeprazole, not tolerating sucralfate, which she has discontinued. Having same right upper quadrant right flank area discomfort. Afebrile, sirs screen negative. No significant tenderness right upper quadrant, no CVA tenderness. States that she has been having intermittent bloody stools, no known hemorrhoids. No black stools. Denies use of blood thinners, no use of NSAIDs. Labs pending, IV Dilaudid/Zofran, IV Protonix. Initial labs: White blood cell count 9100, hemoglobin 11.7 (compared to 12.4 on 01/19/2025, 11.5 on 12/22/2024, 11.1 on 02/19/2024), platelets adequate. Glucose 295. Serum CO2 24, anion gap 11, not consistent with diabetic ketoacidosis. BUN 15 with creatinine 0.96 normal renal function. Normal electrolytes. Slight alkaline phosphatase and AST elevation, normal ALT and total bilirubin. Lipase normal. Renal function adequate, CT angio abdomen and pelvis GI bleeding protocol. More comfortable appearing after IV Dilaudid dose. CT angio study to be performed. Avoid Toradol. 2029, Still having pain, repeat IV Dilaudid dose. CT angio study performed, awaiting results. CT abdomen and pelvis GI GI bleeding protocol. Impressions: ?CT angiogram of the abdomen and pelvis without evidence for acute aortic syndrome, aneurysmal dilatation, or acute gastrointestinal bleeding. No acute abnormalities identified. Colonic diverticulosis without acute diverticulitis. Normal appendix. Other chronic/non-acute findings as above. See radiology report. No acute findings or obvious source of any gastrointestinal bleeding on above CT angio abdomen and pelvis study. Copy of report provided to patient with discussion of negative findings. No gastrointestinal bleeding while in the emergency department, we will repeat H/H. On monitor patient has atrial fibrillation with rapid heart rate 140-120, had not taken her Cardizem today, does not feel short of breath, no chest pain. We will give IV diltiazem 10 mg and we will give her oral dose of CardizemCD 360 mg. Further observe on monitor for now. Repeat hemoglobin 11.6, little change from previous 11.7. No external obvious bleeding for multiple hours here in the emergency department. 2330, AFib with RVR persisting after IV Cardizem 10 mg bolus then her evening dose of oral CardizemCD 360mg, patient has been here in the emergency department 7-1/2 hours, will admit, IV diltiazem infusion to be titrated for rate control. 2340, case discussed with hospitalist Dr. Darby who accepts patient for admission. Critical Care Time Critical Care Time Total Critical Care Time: 35 Attestation: The high probability of a clinically significant, sudden or life threatening deterioration of the [cardiopulmonary, gastrointestinal,] system(s) required my full and direct attention, intervention and personal management. The aggregate critical care time was [35] minutes. This time is in addition to time spent performing reported procedures but includes the following: [x] Data Review and interpretation [x] Patient assessment and monitoring of vital signs [x] Documentation [x] Medication orders and management Discharge Plan Departure Patient Disposition: Admitted as Observation Clinical Impression: Atrial fibrillation with rapid ventricular response, Right flank pain Admit Date/Time: 01/29/25 23:42 Admit Provider: Jonnie Field
--- NOTE | 2025-01-29 18:18 | DI.CT.S_ITS ---
PROCEDURE: CT ANGIO ABD/PEL GI BLEED INDICATIONS: GI Bleeding protocol TECHNIQUE: After the administration of intravenous contrast, 2.5 mm thick sections acquired from the diaphragm to the symphysis. 10 mm maximum-intensity projection (MIP) reformats were then acquired. For radiation dose reduction, the following was used: automated exposure control. Delayed venous phase images were also acquired. COMPARISON: [facility], CT, CT ANGIO CHEST ABDOMEN PELVIS, 05/11/2022, 12:18. FINDINGS: Image Quality: Diagnostic. Abdominal aorta: No aortic aneurysm or evidence of acute aortic syndrome. Extensive atherosclerotic vascular calcifications. Mesenteric arteries: Patent without hemodynamically significant stenosis. Renal arteries: Patent without hemodynamically significant stenosis. OTHER: Lower Chest: Bibasilar atelectasis. Liver: No solid mass. Gallbladder: Surgically absent Biliary ducts: No biliary dilation. Pancreas: Homogeneous enhancement without focal lesions or pancreatic ductal dilatation. No peripancreatic inflammation or organized fluid collections. Spleen: Size is within normal limits. Adrenal Glands: No adrenal nodules. Kidneys and Ureters: No hydronephrosis. No solid mass. No complex renal cystic lesion which requires follow up. Left renal cysts. Bilateral ureters are normal in course and caliber. No renal stones. No ureteral stones. Stomach and Bowel: Normal colonic caliber, without significant wall thickening. Colonic diverticulosis without acute diverticulitis. Normal appendix. No evidence for small bowel obstruction or associated inflammatory changes. No findings to suggest acute gastrointestinal bleeding. Peritoneum: No abnormal intraperitoneal fluid. No free air. Ventral Wall: There is a fat-containing umbilical hernia without acute inflammation. There is mild stranding but appears to be chronic. Abdominal Nodes: No retroperitoneal or mesenteric adenopathy by size criteria. Vessels: Aorta and inferior vena cava are normal in size. Extensive atherosclerotic vascular calcifications. PELVIS: Pelvic Organs: Unremarkable. Bladder: Unremarkable. Pelvic Nodes: No enlarged lymph nodes. Miscellaneous: No inguinal hernias are seen. Bones: No aggressive osseous abnormality. No acute vertebral body compression fractures. Multilevel spondylitic changes throughout the imaged spine. No suspicious osseous lesions. IMPRESSION: CT angiogram of the abdomen and pelvis without evidence for acute aortic syndrome, aneurysmal dilatation, or acute gastrointestinal bleeding. No acute abnormalities identified. Colonic diverticulosis without acute diverticulitis. Normal appendix. Other chronic/non-acute findings as above. Dictated by: Alessio Carlson M.D. on 01/29/2025 at 20:39 Approved by: Alessio Carlson M.D. on 01/29/2025 at 20:45
[2025-01-29] MEDS: PANTOPRAZOLE 40 MG VIAL 80 MG IV (18:29)
[2025-01-29] MEDS: SODIUM CHLORIDE 0.9% 1,000 ML 1000 ML IV (18:29)
[2025-01-29] MEDS: ONDANSETRON 4 MG/2 ML INJ IV (18:29)
[2025-01-29 18:31] LABS: Hemoglobin A1C% w Est Avg Glu 11.3 % (4.0-6.0)
[2025-01-29 18:57] LABS: INR 1.0 (0.9-1.3); Prothrombin Time 11.7 SECONDS (9.4-12.5)
[2025-01-29 19:48] LABS: Troponin I < 0.012 ng/mL (0.01-0.034)
[2025-01-29 23:12] LABS: Hematocrit 35.2 % (36-46); Hemoglobin 11.6 g/dL (12.0-16.0)
[2025-01-30] VITALS (38 sets, daily range): BP systolic 137–231; BP diastolic 69–107; PULSE 84–148; RESP 14–29; TEMP 36–36.8; O2SAT 89–96; BMI 43.0
--- NOTE | 2025-01-30 00:40 | PM.HP.1 ---
History of Present Illness History of Present Illness Date Patient Seen: 01/30/25 Chief complaint: right flank pain Narrative: 69-year-old woman with a history of coronary artery disease post 4 vessel CABG as well as prior cardiac arrest, chronic atrial fibrillation treated with Watchman procedure and rate controlled with diltiazem ER 360 mg, not currently anticoagulated, hypertension, NIDDM, chronic low back and flank pain from spondylisthesis at L4-L5 level, obesity, DM, who presented for flank pain. Two weeks ago seen here in ED with same right flank/abdominal pain, non-revealing CT imaging at that time, suspected duodenal ulcer clinically, sucralfate added at that time to omeprazole. Not tolerating sucralfate which she has subsequently discontinued. Admits to intermittent bloody stools but for many weeks, no black or red stools. In the ED pain subsided with Dilaudid. She then developed rapid atrial fibrillation, failed IVPs of diltiazem and required diltiazem drip and admission to ICU. [facility] Medical History (Updated 01/29/25 @ 21:01 by Gelacio Dunn MD) Lumbar spondylosis Low back pain Spondylolisthesis at L4-L5 level Ovarian cyst Irregular menstrual cycle Heavy menstrual period Endometriosis Gastritis Esophageal spasm (~2022) Heart failure Atrial fibrillation (~2019) Aortic stenosis (~2019) Cardiac arrest (~2017) Diabetes mellitus BMI greater than 40 History of epistaxis Hypertension Pigmented nevus Skin neoplasm COVID-19 Surgical History (Updated 07/31/24 @ 19:44 by Kyara Talavera) Anesthesia Polyp of duodenum (~2023) Pacemaker (~2023) S/P triple vessel bypass (~2019) History of neck surgery (~2008) History of cataract removal with insertion of prosthetic lens (~2012) History of hysterectomy (~2002) Family History (Updated 07/31/24 @ 19:57 by Kyara Talavera) Father Hypertension Mother History of heart disease Hypertension Brother History of heart disease Hypertension Brother Hypertension Grandfather No problems noted. Grandmother History of heart disease History of heart attack Grandfather No problems noted. Grandmother Lupus Meds Home Medications and Allergies Home Medications ?Medication ?Instructions ?Recorded ?Confirmed ?Type diltiazem HCl 360 mg 360 mg PO DAILY 07/04/24 01/30/25 History capsule,extended release 24 hr fluticasone propionate 50 1 spray intranasal BID PRN allergy 07/04/24 01/30/25 History mcg/actuation nasal symptoms spray,suspension furosemide 20 mg tablet 20 mg PO BID 07/04/24 01/30/25 History omeprazole 20 mg capsule,delayed 20 mg PO BID 07/04/24 01/30/25 History release potassium chloride 20 mEq 20 meq PO BID 07/04/24 01/30/25 History tablet,extended release(part/cryst) blood-glucose meter #1 ea 08/16/24 01/30/25 Rx lancets 33 gauge #100 ea 08/16/24 01/30/25 Rx metformin 500 mg tablet,extended 500 mg PO ONCE PM 12/04/24 01/30/25 History release 24 hr sucralfate 1 gram tablet (Carafate) 1 g PO BID #60 tabs 01/19/25 01/30/25 Rx Allergies Allergy/AdvReac Type Severity Reaction Status Date / Time epinephrine (EPINEPHRINE) Allergy Unknown doesn't Verified 01/29/25 15:47 work lisinopril Allergy Unknown Stroke Verified 01/29/25 15:47 [id number] Reductase AdvReac Severe Joint Pain Verified 01/29/25 15:47 Inhibitor codeine (CODEINE) AdvReac Unknown Hives Verified 01/29/25 15:47 gabapentin AdvReac Unknown Verified 01/29/25 15:47 naproxen AdvReac Unknown Verified 01/29/25 15:47 Review of Systems Review of Systems Narrative: General - w/o fever, chills, sweats MSK - low back pain, more on the right Urogenital - w/o dysuria or hematuria GI - upper abdominal tenderness, no recent dark or bloody stool CVS - w/o chest pain RS - exertional dyspnea Exam Vital Signs (past 8 hours): - 01/29/25 18:39 01/29/25 18:45 01/29/25 18:45 Pulse Rate 86 122 H Respiratory Rate 21 Blood Pressure 134/96 H Pulse Oximetry 96 96 01/29/25 19:00 01/29/25 19:00 01/29/25 19:30 Pulse Rate 121 H 109 H Respiratory Rate 17 Blood Pressure 154/102 H Pulse Oximetry 94 95 01/29/25 20:00 01/29/25 20:00 01/29/25 20:30 Pulse Rate 65 109 H 127 H Respiratory Rate 18 21 Blood Pressure Pulse Oximetry 93 96 01/29/25 20:46 01/29/25 20:46 01/29/25 21:00 Pulse Rate 119 H Respiratory Rate 22 Blood Pressure 166/87 H 151/84 H Pulse Oximetry 94 01/29/25 21:00 01/29/25 21:15 01/29/25 21:30 Pulse Rate 129 H 144 H 111 H Respiratory Rate 16 12 Blood Pressure Pulse Oximetry 94 94 01/29/25 21:30 01/29/25 22:00 01/29/25 22:03 Pulse Rate 114 H 121 H Respiratory Rate 19 17 Blood Pressure 153/70 H Pulse Oximetry 94 94 01/29/25 22:04 01/29/25 22:04 01/29/25 22:30 Pulse Rate 120 H 125 H Respiratory Rate 21 17 Blood Pressure 181/103 H Pulse Oximetry 95 93 01/29/25 22:31 01/29/25 22:31 01/29/25 23:00 Pulse Rate 114 H 117 H Respiratory Rate 22 18 Blood Pressure 167/101 H Pulse Oximetry 94 93 01/29/25 23:00 01/29/25 23:48 Pulse Rate 121 H Respiratory Rate Blood Pressure 178/79 H 181/101 H Pulse Oximetry Oxygen Delivery Method Room Air Narrative Exam Narrative: General - in no distress HEENT - normocephalic CVS; tachycardic, irregular RS - normal respiratory effort, CTA MSK: low back pain Neuro - w/o deficits, lucid Objective ECG Impression: Atrial fibrilation [address] scan - abdomen: Radiologist's impression: CT angiogram of the abdomen and pelvis without evidence for acute aortic syndrome, aneurysmal dilatation, or acute gastrointestinal bleeding. No acute abnormalities identified. Colonic diverticulosis without acute diverticulitis. Normal appendix. No acute CT findings abdomen and pelvis HepatomegalyOther chronic/non-acute findings as above. Labs 01/30/25 04:30 01/30/25 04:30 Labs: Laboratory Results - last 24 hr 01/29/25 01/29/25 01/29/25 16:01 16:05 19:17 WBC 9.1 RBC 4.19 Hgb 11.7 L Hct 34.7 L MCV 82.9 MCH 27.9 MCHC 33.7 RDW 16.3 H Plt Count 356 Neut % (Auto) 72.6 Lymph % (Auto) 19.7 L Gulf % (Auto) 5.9 Eos % (Auto) 0.6 L Baso % (Auto) 1.2 Neut # (Auto) 6600 Lymph # (Auto) 1800 Gulf # (Auto) 500 Eos # (Auto) 100 Baso # (Auto) 100 PT 11.7 INR 1.0 Sodium 138 Potassium 3.9 Chloride 103 Carbon Dioxide 24 BUN 15 Creatinine 0.96 Estimated GFR > 60 BUN/Creatinine Ratio 15.6 Glucose 295 H Hemoglobin A1c 11.3 H Calcium 9.4 Total Bilirubin 0.6 AST 40 H ALT 27 Alkaline Phosphatase 159 H Troponin I < 0.012 Total Protein 8.5 H Albumin 4.3 Globulin 4.2 H Albumin/Globulin Ratio 1.0 Lipase 137 01/29/25 23:04 WBC RBC Hgb 11.6 L Hct 35.2 L MCV MCH MCHC RDW Plt Count Neut % (Auto) Lymph % (Auto) Gulf % (Auto) Eos % (Auto) Baso % (Auto) Neut # (Auto) Lymph # (Auto) Gulf # (Auto) Eos # (Auto) Baso # (Auto) PT INR Sodium Potassium Chloride Carbon Dioxide BUN Creatinine Estimated GFR BUN/Creatinine Ratio Glucose Hemoglobin A1c Calcium Total Bilirubin AST ALT Alkaline Phosphatase Troponin I Total Protein Albumin Globulin Albumin/Globulin Ratio Lipase Assessment & Plan Assessment and plan (1) Atrial fibrillation with rapid ventricular response: Status: Acute (2) Spondylolisthesis at L4-L5 level: Status: Acute (3) Diabetes mellitus: Qualifiers: Diabetes mellitus complication status: without complication Diabetes mellitus extermination inspector insulin use: without extermination inspector use Diabetes mellitus type: type 2 Qualified Code(s): E11.9 - Type 2 diabetes mellitus without complications Status: Acute (4) Gastritis: Status: Acute Assessment & Plan narrative: Atrial fibrillation with rapid ventricular response - not anticoagulated, Hx of Watchman - failed IVPs of diltizem - Cardizem drip initiated in the ED - home Cardizem 360 mg PO daily on hold while on drip and borderline hypotensive CHF - Lasix, KCl Back pain / LS spondylolisthesis L4-L5 - Tylenol, oxycodone NIDDMT2 - metformin - CCD, SS GERD / PUD - PPI, sucralfate DVT prophylaxis - Lovenox Patient consented to telemedicine, audio-visual encounter with RN assisting with the exam. Patient located at [place], [place], provider located in [place]. Time-Based Coding :: [TOTAL MINUTES] spent with patient and on the chart (including review of chart, obtaining history, exam, reviewing outside data, placing orders, documenting exam and treatment plan, and counseling patient) on [DATE].
[2025-01-30 02:28] LABS: MRSA (Nasal) PCR DETECTED (Not Detect)
[2025-01-30] MEDS: OXYCODONE IR 10 MG TABLET PO (02:49)
[2025-01-30] MEDS: ONDANSETRON 4 MG/2 ML INJ IV (02:58)
[2025-01-30 05:43] LABS: Add Manual Diff / Slide Review NO; Hematocrit 34.0 % (36-46); Hemoglobin 11.4 g/dL (12.0-16.0); Lymphocytes Absolute Auto 1400 /uL (1100-4500); Mean Corpuscular HGB Conc 33.5 % (30-36); Mean Corpuscular Hemoglobin 27.6 PG (26-34); Mean Corpuscular Volume 82.5 fL (80-100); Platelet Count 341 X10^3/uL (150-400)
[2025-01-30 05:49] LABS: Blood Urea Nitrogen 14 mg/dL (7-17); Calcium 9.1 mg/dL (8.4-10.2); Carbon Dioxide 25 mmol/L (22-32); Chloride 102 mmol/L (98-107); Estimated Glomerular Filt Rate > 60 mL/min (>60); Glucose 275 mg/dL (70-99); HEMOLYSIS < 15 (0-50); Potassium 3.7 mmol/L (3.4-5.1); Sodium 137 mmol/L (137-145)
--- NOTE | 2025-01-30 08:22 | PC.NURSE ---
Addendum entered by Radha Mars R.N. 01/30/25 17:30: [address] Ware at bedside this nurse pushed 6mg Adenosine and flushed with 10cc saline flush. Code cart was at bedside with pads placed on pt chest. Continuous monitioring while pushing adenosine, no change in HR or rhythm. Pt placed back on dilt gtt at previous rate (see emar), no new orders at this time. Care ongoing Original Note: Cardiac consult placed, Spoke to Dr Ware who ordered pt to be NPO after breakfast, turn Dilt gtt up (see titration) and Dr Ware will be in this afternoon to possibly cardio-vert pt at bedside. Explained plan to pt and Dr Dunn, no further needs at this time. Care on going
[2025-01-30] MEDS: INSULIN LISPRO 100 UNIT/ML 3ML VIAL SUBCUT ×4 (08:46→21:39)
[2025-01-30] MEDS: ENOXAPARIN 40 MG/0.4 ML SYRINGE SUBCUT ×2 (08:47→21:40)
[2025-01-30] MEDS: PANTOPRAZOLE DR 20 MG TABLET PO ×2 (08:47→21:39)
[2025-01-30] MEDS: POTASSIUM CHLORIDE 20 MEQ TAB PO ×2 (08:47→21:38)
[2025-01-30] MEDS: FUROSEMIDE 20 MG TABLET PO ×2 (08:47→21:39)
[2025-01-30] MEDS: ONDANSETRON 4 MG ODT PO (08:47)
[2025-01-30] MEDS: HYDROMORPHONE 1 MG INJ IV (08:49)
--- NOTE | 2025-01-30 10:08 | DIET.CONS ---
Dietary Consultation Note Admission Date: 01/29/2025 23:42 Assessment: 69 y F admitted for Atrial fibrillation with rapid ventricular response. Dietitian screened for DM2 w/ A1c 11.3%. Attempted visit this morning, RN in with pt and pt dry heaving. F/u later as able. Pt had visit scheduled with DM educator in August, cancelled visit r/t establishing care with another PCP. Referral is still good. Per EMR reviewed, appears to have not tolerated metformin previously, per PCP visit note this Jul, pt started on trial of glargine 10 units. Ht: 160.02 cm Wt: 110 kg BMI: 43.0 Last BM: 01/29/25 (01/30/25 06:00) MNA: 14 Timothy Score: 20 Diet: 01/30/25 09:21 NPO Diet Diet Modifications: NPO Type: Strict Labs: RBC 4.12 X10^6/uL (4.0-5.2) 01/30/25 04:30 Hgb 11.4 g/dL (12.0-16.0) L 01/30/25 04:30 Hct 34.0 % (36-46) L 01/30/25 04:30 Creatinine 0.84 mg/dL (0.52-1.04) 01/30/25 04:30 Hemoglobin A1c 11.3 % (4.0-6.0) H 01/29/25 16:01 Nutrition Diagnosis: Altered nutrition related lab values (A1c%) r/t endocrine dysfunction, possible medication non-adherence d/t not tolerating aeb 11.3% A1c Interventions: -Coordinated with scheduling team to reach out and attempt rescheduling -F/u with pt as able EER: 30-45 g carbs at meals, 15-30 g carbs at snacks Monitoring/Evaluations: BG, po intakes, f/u as able Electronically Signed by: Cristiane Tellez 01/30/25 10:08 Clinical Dietitian [address] [address]
--- NOTE | 2025-01-30 11:23 | PC.NURSE ---
Pt started with nausea and vomiting after receiving ordered 1 mg Dilaudid (see emar for administration time), Dr Dunn notified, dilaudid order discontinued and dilaudid added to pt ADR list. Pt states that she chronically vomits with pain medications. at bedside, zofran administered with dilaudid administration. No further needs at this time, care on going.
--- NOTE | 2025-01-30 11:33 | CM.DANOTE ---
Initial DCP Assessment Visit Note Reviewed EMR and team rounds for pt's medical status and updates. MEDICAL LABORATORY TECHNICIAN did not meet with pt f/f as she was having intractable vomiting at the time of this visit. Pt lives independently at baseline with her spouse in their own home here in [place]. Spouse will transport pt home unless she ends up needing to be transferred to a higher level of care for cardiac. No CM d/c needs are identified at this time. Payor: SRINATH BOGGS OCKailee PCP: Dr. Levin Pt is a 69 year-old F with a PMH of CHF, obesity, diabetes, HTN, gastritis, and Afib. She presented to the ED with c/o upper quadrant and lower flank pain. No abnormalities were found on CT imaging for her pain, however she was found to be in Afib w/RVR. Pt was treated, yet the Afib has persisted. Plan is for the Vinyl Cutter, Dr. Sotelo to come to the ICU today and do a cardioversion on her. She is taking IV Dilaudid for pain, which is the primary reason for her n/v today. Spouse is at bedside. If the cardioversion is not successful, she will likely be transferred to a higher level of care hospital for further cardio eval/tx. Monitoring for any further d/c resource/assistance needs. Discharge Planning/Care Management CM Discharge Assessment Start: 01/30/25 00:42 Freq: Status: Active Protocol: Document 01/30/25 11:27 DPL (Rec: 01/30/25 11:30 DPL [id number]) Discharge Planning Assessment Assigned Discharge COLEEN Cardoso Feather Washer Advance Directives? Yes: POLST Advance Directives Yes on File History Provided By Medical Record Has Patient been No admitted in last 30 days? Prior Living House Arrangements Household Members spouse Type of Drives own vehicle transporation used prior to admit Independent with ADL Yes 's Is patient alert and Yes oriented? Caregiver for No Another Comment Possible transfer. Barriers to No Discharge Discharge Plan Transfer to Higher Level of Care Transportation Spouse Arrangement Referrals Initiated None needed Whiteboard Updated Yes in Patient Room with name and ext. # of Shank Maker Review Status In Process Please Provide Date 01/30/25 Initial DC Assessment Was Performed
[2025-01-30] MEDS: INSULIN GLARGINE 100 UNIT/ML 3ML PEN 10 UNIT SUBCUT (12:43)
[2025-01-30] MEDS: ADENOSINE 6 MG/2 ML VIAL IV (17:17)
[2025-01-30] MEDS: METFORMIN XR 500 MG TABLET PO (17:22)
--- NOTE | 2025-01-30 17:27 | PM.CN ---
History of Present Illness Consult details Date Patient Seen: 01/30/25 Time Patient Seen: 17:28 Chief complaint: right flank pain Narrative: 69-year-old female with multiple comorbidities has history of myocardial infarction 2017, cardiac arrest, coronary artery bypass surgery four-vessel 2019, redo sternotomy for thoracic bleeding, chronic permanent atrial fibrillation, status post Watchman device 2022 at [facility], type 2 diabetes on insulin, morbid obesity, chronic back pain, hyperlipidemia was admitted to the hospital with right flank pain with atrial fibrillation and rapid ventricular rate. She reported alleged history of leaky heart valve however details of which are not available. 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 Patient is lying in bed comfortably reports no chest pains or shortness of breath. She is mostly bothered by back pain and flank pain. No fever chills no dysuria. No nausea vomiting or diaphoresis. No respiratory distress cough fever chills reported prior to admission or during this admission. I received a phone call this morning regarding her clinical condition with severely elevated blood pressure and atrial fibrillation with rapid ventricular rate. The dose of diltiazem was increased to 10 mg an hour. She was kept NPO as I did not have the details of her history. I came to see her this evening. She is mostly doing well and reported no acute symptoms. Meds Home Medications and Allergies Home Medications ?Medication ?Instructions ?Recorded ?Confirmed ?Type diltiazem HCl 360 mg 360 mg PO DAILY 07/04/24 01/30/25 History capsule,extended release 24 hr fluticasone propionate 50 1 spray intranasal BID PRN allergy 07/04/24 01/30/25 History mcg/actuation nasal symptoms spray,suspension furosemide 20 mg tablet 20 mg PO BID 07/04/24 01/30/25 History omeprazole 20 mg capsule,delayed 20 mg PO BID 07/04/24 01/30/25 History release potassium chloride 20 mEq 20 meq PO BID 07/04/24 01/30/25 History tablet,extended release(part/cryst) blood-glucose meter #1 ea 08/16/24 01/30/25 Rx lancets 33 gauge #100 ea 08/16/24 01/30/25 Rx metformin 500 mg tablet,extended 500 mg PO ONCE PM 12/04/24 01/30/25 History release 24 hr sucralfate 1 gram tablet (Carafate) 1 g PO BID #60 tabs 01/19/25 01/30/25 Rx benzonatate 200 mg capsule 200 mg PO 3XD PRN cough 01/30/25 01/30/25 History polyethylene glycol 3350 17 17 g PO BID 01/30/25 01/30/25 History gram/dose oral powder Allergies Allergy/AdvReac Type Severity Reaction Status Date / Time epinephrine (EPINEPHRINE) Allergy Unknown doesn't Verified 01/30/25 10:15 work lisinopril Allergy Unknown Stroke Verified 01/30/25 10:15 hydromorphone (From Dilaudid) AdvReac Severe Vomiting Verified 01/30/25 10:15 [id number] Reductase AdvReac Severe Joint Pain Verified 01/30/25 10:15 Inhibitor codeine (CODEINE) AdvReac Unknown Hives Verified 01/30/25 10:15 gabapentin AdvReac Unknown Verified 01/30/25 10:15 naproxen AdvReac Unknown Verified 01/30/25 10:15 Review of Systems Constitutional Constitutional: Reports daytime sleepiness and Reports lethargy Eyes Comments: History of cataract surgery ENT Ears, Nose, Mouth, and Throat: Yes neck pain Cardiovascular Cardiovascular: Reports lightheadedness Musculoskeletal Musculoskeletal: Reports neck pain and Reports radiating pain into limb Comments: Chronic Back pain Exam Vital Signs (past 8 hours): - 01/30/25 10:00 01/30/25 10:17 01/30/25 11:00 Temperature 98.2 F Pulse Rate 103 H 96 H Respiratory Rate 18 16 Blood Pressure 192/72 H Pulse Oximetry 92 94 Oxygen Delivery Method Room Air Oxygen Flow Rate 0 01/30/25 11:00 01/30/25 11:00 01/30/25 11:01 Temperature 98.2 F Pulse Rate 89 89 89 Respiratory Rate 14 18 18 Blood Pressure 163/71 H Pulse Oximetry 94 Oxygen Delivery Method Oxygen Flow Rate 0 01/30/25 11:01 01/30/25 12:00 01/30/25 12:00 Temperature 98.2 F Pulse Rate 86 86 Respiratory Rate 27 H 18 Blood Pressure 163/71 H 137/86 Pulse Oximetry 91 Oxygen Delivery Method Oxygen Flow Rate 0 01/30/25 12:01 01/30/25 12:01 01/30/25 13:00 Temperature Pulse Rate 85 84 Respiratory Rate 26 H 23 Blood Pressure 137/86 Pulse Oximetry Oxygen Delivery Method Oxygen Flow Rate 01/30/25 13:00 01/30/25 13:01 01/30/25 13:01 Temperature 98.2 F Pulse Rate 84 84 Respiratory Rate 18 26 H Blood Pressure 142/90 H 142/90 H Pulse Oximetry 92 Oxygen Delivery Method Oxygen Flow Rate 0 01/30/25 14:00 01/30/25 14:00 01/30/25 14:02 Temperature 98.2 F Pulse Rate 85 85 86 Respiratory Rate 18 22 19 Blood Pressure 146/69 H Pulse Oximetry 91 Oxygen Delivery Method Oxygen Flow Rate 0 01/30/25 14:02 01/30/25 15:00 01/30/25 15:00 Temperature 97.2 F L Pulse Rate 85 Respiratory Rate 22 Blood Pressure 146/69 H Pulse Oximetry Oxygen Delivery Method Oxygen Flow Rate 01/30/25 15:00 01/30/25 15:01 01/30/25 15:01 Temperature Pulse Rate 85 Respiratory Rate 22 Blood Pressure 165/73 H Pulse Oximetry Oxygen Delivery Method Room Air Oxygen Flow Rate 01/30/25 15:19 01/30/25 15:19 01/30/25 16:00 Temperature Pulse Rate 87 Respiratory Rate 20 Blood Pressure 173/77 H 198/83 H Pulse Oximetry 94 Oxygen Delivery Method Oxygen Flow Rate 01/30/25 16:00 01/30/25 17:00 01/30/25 17:00 Temperature Pulse Rate 87 109 H Respiratory Rate 21 23 Blood Pressure 206/99 H Pulse Oximetry Oxygen Delivery Method Oxygen Flow Rate 01/30/25 17:08 01/30/25 17:08 Temperature Pulse Rate 111 H Respiratory Rate 22 Blood Pressure 231/107 H Pulse Oximetry 94 Oxygen Delivery Method Oxygen Flow Rate Oxygen Delivery Method Room Air Oxygen Flow Rate 0 Const General: cooperative Nutritional Appearance: obese [facility] Head: normal to inspection Eyes General: appearance normal, both eyes and all related structures Neck Neck: normal visual inspection Other: Short neck Resp Effort & Inspection: able to speak in complete sentences Auscultation: clear to auscultation bilaterally Cardio Palpation: other (Diffuse) Rate: tachycardic Heart Sounds: S1 normal, S2 normal and murmur GI Inspection: normal to inspection Skin General: no rashes or lesions noted Neuro General: patient alert and patient oriented x3 Objective Labs 01/30/25 04:30 01/30/25 04:30 Labs: Laboratory Results - last 24 hr 01/29/25 01/29/25 01/29/25 16:01 16:05 19:17 WBC RBC Hgb Hct MCV MCH MCHC RDW Plt Count Neut % (Auto) Lymph % (Auto) [place] % (Auto) Eos % (Auto) Baso % (Auto) Neut # (Auto) Lymph # (Auto) [place] # (Auto) Eos # (Auto) Baso # (Auto) PT 11.7 INR 1.0 Sodium Potassium Chloride Carbon Dioxide BUN Creatinine Estimated GFR BUN/Creatinine Ratio Glucose POC Whole Bld Glucose Hemoglobin A1c 11.3 H Calcium Troponin I < 0.012 Nasal Screen MRSA (PCR) 01/29/25 01/30/25 01/30/25 23:04 00:22 04:30 WBC 9.2 RBC 4.12 Hgb 11.6 L 11.4 L Hct 35.2 L 34.0 L MCV 82.5 MCH 27.6 MCHC 33.5 RDW 16.3 H Plt Count 341 Neut % (Auto) 78.2 H Lymph % (Auto) 14.7 L [place] % (Auto) 5.7 Eos % (Auto) 0.5 L Baso % (Auto) 0.9 Neut # (Auto) 7200 H Lymph # (Auto) 1400 [place] # (Auto) 500 Eos # (Auto) 0 Baso # (Auto) 100 PT INR Sodium 137 Potassium 3.7 Chloride 102 Carbon Dioxide 25 BUN 14 Creatinine 0.84 Estimated GFR > 60 BUN/Creatinine Ratio 16.7 Glucose 275 H POC Whole Bld Glucose Hemoglobin A1c Calcium 9.1 Troponin I Nasal Screen MRSA (PCR) Detected H 01/30/25 01/30/25 01/30/25 07:58 12:27 16:38 WBC RBC Hgb Hct MCV MCH MCHC RDW Plt Count Neut % (Auto) Lymph % (Auto) [place] % (Auto) Eos % (Auto) Baso % (Auto) Neut # (Auto) Lymph # (Auto) [place] # (Auto) Eos # (Auto) Baso # (Auto) PT INR Sodium Potassium Chloride Carbon Dioxide BUN Creatinine Estimated GFR BUN/Creatinine Ratio Glucose POC Whole Bld Glucose 294 H 306 H 257 H Hemoglobin A1c Calcium Troponin I Nasal Screen MRSA (PCR) [facility] Medical History (Updated 01/30/25 @ 17:41 by Jam Ware MD) Presence of Watchman left atrial appendage closure device Coronary artery disease involving autologous artery coronary bypass graft Lumbar spondylosis Low back pain Spondylolisthesis at L4-L5 level Ovarian cyst Irregular menstrual cycle Heavy menstrual period Endometriosis Gastritis Esophageal spasm (~2022) Heart failure Atrial fibrillation (~2019) Aortic stenosis (~2019) Cardiac arrest (~2017) Diabetes mellitus BMI greater than 40 History of epistaxis Hypertension Pigmented nevus Skin neoplasm COVID-19 Surgical History Anesthesia Polyp of duodenum (~2023) Pacemaker (~2023) S/P triple vessel bypass (~2019) History of neck surgery (~2008) History of cataract removal with insertion of prosthetic lens (~2012) History of hysterectomy (~2002) Family History Father Hypertension Mother History of heart disease Hypertension Brother History of heart disease Hypertension Brother Hypertension Grandfather No problems noted. Grandmother History of heart disease History of heart attack Grandfather No problems noted. Grandmother Lupus Social History marital status: household members: spouse Diet and Exercise Type(s) of exercise: none and sedentary lifestyle Assessment & Plan Assessment and plan (1) Right flank pain: Status: Acute (2) Acute right flank pain: Status: Acute (3) Lumbar spondylosis: Status: Acute (4) Low back pain: Qualifiers: Back pain laterality: bilateral Chronicity: chronic Sciatica presence: unspecified whether sciatica present Qualified Code(s): M54.50 - Low back pain, unspecified; G89.29 - Other chronic pain Status: Acute (5) Spondylolisthesis at L4-L5 level: Status: Acute (6) Heart failure: Qualifiers: Heart failure chronicity: chronic Heart failure type: unspecified Qualified Code(s): I50.9 - Heart failure, unspecified Status: Acute (7) Gastritis: Qualifiers: Chronicity: chronic Gastritis bleeding: without bleeding Gastritis type: unspecified gastritis Qualified Code(s): K29.50 - Unspecified chronic gastritis without bleeding Status: Acute (8) Atrial fibrillation: Qualifiers: Atrial fibrillation type: permanent Qualified Code(s): I48.21 - Permanent atrial fibrillation Status: Acute (9) Hypertension: Qualifiers: Hypertension type: unspecified Qualified Code(s): I10 - Essential (primary) hypertension Status: Acute (10) BMI greater than 40: Status: Acute (11) Diabetes mellitus: Qualifiers: Diabetes mellitus complication status: without complication Diabetes mellitus custodial insulin use: 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 1) chronic permanent atrial fibrillation with rapid ventricular rate. I attempted to convert her to sinus rhythm by using adenosine however she was unresponsive. By history and by adenosine I can infer that she has chronic permanent atrial fibrillation. She is currently on diltiazem drip. Prior to admission to the hospital she was on diltiazem 360 mg extended release daily. She reported to me that her average heart rate stays between 90-120 130s at times. Clearly she is suboptimally controlled therefore carries a risk of tachycardia induced cardiomyopathy. Further optimization of her medication is indicated. At this point I will start her on oral Cardizem 360 mg and add metoprolol succinate 50 mg twice daily to further reduce her weight. She is not a candidate for anticoagulation because she has a history of GI bleed she also has a Watchman device placed in 2022. 2) Chronic systolic and diastolic heart failure: She informed me that she has heart failure however she is not on any guideline directed medical therapy details of her cardiac history are not available to me. She also tells me that she has a leaky valve again details of which are not available. 3) coronary artery disease status post bypass surgery in 2020 history of cardiac arrest with successful resuscitation. Most recent ejection fraction is not known therefore risk of sudden cardiac can not be ascertained. 4) severe uncontrolled hypertension. I am starting her on 50 mg of spironolactone in addition to diltiazem and metoprolol. This will lower her blood pressure and at times while the pillars of guideline directed medical therapy for heart failure. Recommendations: Diltiazem extended release 360 mg daily, metoprolol succinate 50 mg twice daily we will up titrate the dose tomorrow. Start spironolactone 50 mg daily monitor the blood pressure. Obtain echocardiogram to assess her LV function and valvular insufficiency. Outpatient sleep study. Patient is morbidly obese with body mass index more than 40. Patient is also type 2 diabetic therefore is a candidate for weight loss strategies. Injectable Repatha or Praluent PCSK9 since she is allergicto statins. Will follow up tomorrow to assess her response to medication changes. Time-Based Coding :: [TOTAL MINUTES] spent with patient and on the chart (including review of chart, obtaining history, exam, reviewing outside data, placing orders, documenting exam and treatment plan, and counseling patient) on [DATE].
[2025-01-30] MEDS: METOPROLOL ER 50 MG TABLET PO (18:13)
[2025-01-30] MEDS: SODIUM CHLORIDE 0.9% FLUSH 10 ML IV (22:08)
[2025-01-31] VITALS (57 sets, daily range): BP systolic 115–196; BP diastolic 58–114; PULSE 83–109; RESP 18–44; TEMP 36.3–36.9; O2SAT 88–96
--- NOTE | 2025-01-31 08:01 | PM.PN.1 ---
Subjective Subjective Interval history: Hospital course: 69-year-old woman with a history of coronary artery disease post 4 vessel CABG as well as prior cardiac arrest, chronic atrial fibrillation treated with Watchman procedure and rate controlled with diltiazem ER 360 mg, not currently anticoagulated, hypertension, NIDDM, chronic low back and flank pain from spondylisthesis at L4-L5 level, obesity, DM, who presented for flank pain. Two weeks ago seen here in ED with same right flank/abdominal pain, non-revealing CT imaging at that time, suspected duodenal ulcer clinically, sucralfate added at that time to omeprazole. Not tolerating sucralfate which she has subsequently discontinued. Admits to intermittent bloody stools but for many weeks, no black or red stools. In the ED pain subsided with Dilaudid. She then developed rapid atrial fibrillation, failed IVPs of diltiazem and required diltiazem drip and admission to ICU. S: She was doing well, her heart rate was fast this morning but it was better this afternoon. Her diltiazem drip has been off since 11:00 a.m.. She denies any chest pain. Her anxiety is well-controlled with her current medications. She also takes methocarbamol for muscle spasm. I did speak with Cardiology [id number], they have increased her beta blockade and blood pressure medications as well. Exam Vital Signs (past 8 hours): - 01/31/25 00:17 01/31/25 00:17 01/31/25 01:00 Pulse Rate 98 H 92 H Respiratory Rate 22 27 H Blood Pressure 156/74 H Oxygen Delivery Method 01/31/25 01:01 01/31/25 01:01 01/31/25 02:00 Pulse Rate 91 H 90 Respiratory Rate 31 H 19 Blood Pressure 150/114 H Oxygen Delivery Method 01/31/25 02:01 01/31/25 02:01 01/31/25 03:00 Pulse Rate 91 H Respiratory Rate 21 Blood Pressure 144/63 H Oxygen Delivery Method Room Air 01/31/25 03:00 01/31/25 03:01 01/31/25 03:01 Pulse Rate 90 Respiratory Rate 39 H Blood Pressure 126/58 L 126/58 L Oxygen Delivery Method 01/31/25 03:01 01/31/25 04:00 01/31/25 04:00 Pulse Rate 91 H 109 H Respiratory Rate 30 H 22 Blood Pressure 121/74 Oxygen Delivery Method 01/31/25 05:00 01/31/25 05:00 01/31/25 06:00 Pulse Rate 89 88 Respiratory Rate 27 H 41 H Blood Pressure 139/59 L Oxygen Delivery Method 01/31/25 06:01 01/31/25 06:01 Pulse Rate 87 Respiratory Rate 41 H Blood Pressure 115/64 Oxygen Delivery Method Oxygen Delivery Method Room Air Oxygen Flow Rate 0 Narrative Exam Narrative: NAD, alert and oriented. Fluent speech. Lungs are clear, normal rate and effort. Heart is irregular, no murmur gallop or rub. Abdomen is soft, non distended. Extremities are free of edema. Objective Labs 01/31/25 13:13 01/30/25 04:30 Labs: Laboratory Results - last 24 hr 01/30/25 01/30/25 01/30/25 07:58 12:27 16:38 POC Whole Bld Glucose 294 H 306 H 257 H 01/30/25 21:33 POC Whole Bld Glucose 210 H [facility] Medical History Presence of Watchman left atrial appendage closure device Coronary artery disease involving autologous artery coronary bypass graft Lumbar spondylosis Low back pain Spondylolisthesis at L4-L5 level Ovarian cyst Irregular menstrual cycle Heavy menstrual period Endometriosis Gastritis Esophageal spasm (~2022) Heart failure Atrial fibrillation (~2019) Aortic stenosis (~2019) Cardiac arrest (~2018) Diabetes mellitus BMI greater than 40 History of epistaxis Hypertension Pigmented nevus Skin neoplasm COVID-19 Surgical History Anesthesia Polyp of duodenum (~2023) Pacemaker (~2023) S/P triple vessel bypass (~2019) History of neck surgery (~2008) History of cataract removal with insertion of prosthetic lens (~2012) History of hysterectomy (~2002) Family History Father Hypertension Mother History of heart disease Hypertension Brother History of heart disease Hypertension Brother Hypertension Grandfather No problems noted. Grandmother History of heart disease History of heart attack Grandfather No problems noted. Grandmother Lupus Social History marital status: household members: spouse Type(s) of exercise: none and sedentary lifestyle Assessment & Plan Assessment & Plan narrative: 1. Atrial fibrillation with rapid ventricular response, improving. - not anticoagulated, Hx of Watchman - failed IVPs of diltizem - Cardizem drip initiated in the ED - home Cardizem 360 mg PO daily on hold while on drip and borderline hypotensive 2. CHF, diastolic. - Lasix, KCl 3. Back pain / LS spondylolisthesis L4-L5 - Tylenol, oxycodone 4. NIDDMT2 - metformin - CCD, SS 5. GERD / PUD - PPI, sucralfate 6. CAD, CABG. Stable. PLAN: -stop diltiazem drip. -continue diltiazem 360 a day. -increase metoprolol to 75 b.i.d.. -cardiology increase spironolactone to 37.5 a day, and losartan to 50 b.i.d.. -recommendation for Jardiance for glucose control as well as cardioprotective effect. HILDA: 02/01. DVT prophylaxis - Lovenox Time-Based Coding :: [TOTAL MINUTES] spent with patient and on the chart (including review of chart, obtaining history, exam, reviewing outside data, placing orders, documenting exam and treatment plan, and counseling patient) on [DATE].
[2025-01-31] MEDS: POTASSIUM CHLORIDE 20 MEQ TAB PO (08:27)
[2025-01-31] MEDS: PANTOPRAZOLE DR 20 MG TABLET PO ×2 (08:27→21:10)
[2025-01-31] MEDS: METOPROLOL ER 50 MG TABLET PO (08:27)
[2025-01-31] MEDS: SPIRONOLACTONE 25 MG TABLET PO (08:27)
[2025-01-31] MEDS: ENOXAPARIN 40 MG/0.4 ML SYRINGE SUBCUT ×2 (08:27→21:11)
[2025-01-31] MEDS: FUROSEMIDE 20 MG TABLET PO ×2 (08:27→21:08)
[2025-01-31] MEDS: INSULIN LISPRO 100 UNIT/ML 3ML VIAL SUBCUT ×4 (08:28→21:11)
[2025-01-31] MEDS: SODIUM CHLORIDE 0.9% FLUSH 10 ML IV ×2 (08:28→21:12)
[2025-01-31] MEDS: INSULIN GLARGINE 100 UNIT/ML 3ML PEN 10 UNIT SUBCUT (08:28)
[2025-01-31] MEDS: MAGNESIUM HYDROXIDE 30 ML UDC PO (10:05)
--- NOTE | 2025-01-31 10:38 | CM.DPNOTE ---
DCP Continued: Reviewed EMR and team rounds for pt?s medical status. Per MD, cardioversion failed yesterday and plan is to continue with drip. Leadership Program Associate is consulted and following pt as well. No discharge items identified at this time, CM team following if needs arise. Plan: Plan of care is evolving, anticipating home with spouse when Afib with RVR stabilized. CM Team will continue to follow for coordination of discharge plans. RILEY OmalleySW
--- NOTE | 2025-01-31 11:30 | PT.IIE ---
Current Diagnoses Type 2 diabetes mellitus without complications (01/31/25) Other chronic pain (01/31/25) Essential (primary) hypertension (01/31/25) Permanent atrial fibrillation (01/31/25) Unspecified atrial fibrillation (01/31/25) Heart failure, unspecified (01/31/25) Unspecified chronic gastritis without bleeding (01/31/25) Gastritis, unspecified, without bleeding (01/31/25) Spondylolisthesis, lumbar region (01/31/25) Spondylosis without myelopathy or radiculopathy, lumbar region (01/31/25) Low back pain, unspecified (01/31/25) Unspecified abdominal pain (01/31/25) Surgical History (Last Reviewed 01/31/25 @ 08:03 by Pawel Poole MD) Anesthesia History of cataract removal with insertion of prosthetic lens (~2012) History of hysterectomy (~2002) History of neck surgery (~2008) Pacemaker (~2023) Polyp of duodenum (~2023) S/P triple vessel bypass (~2019) Medical History (Last Reviewed 01/31/25 @ 08:03 by Pawel Poole MD) Aortic stenosis (~2019) Atrial fibrillation (~2019) BMI greater than 40 Cardiac arrest (~2017) Coronary artery disease involving autologous artery coronary bypass graft COVID-19 Diabetes mellitus Endometriosis Esophageal spasm (~2022) Gastritis Heart failure Heavy menstrual period History of epistaxis Hypertension Irregular menstrual cycle Low back pain Lumbar spondylosis Ovarian cyst Pigmented nevus Presence of Watchman left atrial appendage closure device Skin neoplasm Spondylolisthesis at L4-L5 level Physical Therapy Inpatient Evaluation/Re-Eval M1 PT/OT-IP Prior Functional Status Start: 01/31/25 13:31 Freq: NEEDED Status: Active Protocol: Document 01/31/25 11:30 AB (Rec: 01/31/25 13:54 AB [id number]) Medical Review Prior Functional Status Medical History Yes Reviewed Communication able to make needs known Mobility and Gait pt stated that she was modified independent with ambulation using a 4WW Activities of Daily pt stated that she needs assistance with dressing and Living and IADL's sponge bathing where spouse assists her as needed. Social History Household Members spouse Living Arrangements Apartment/Condo Number of Floors ( One Floor Floors) Number of Stairs To no steps to enter Enter/Railing? Home Environment Standard Height Toilet,Tub/Shower Home Equipment Four Wheel Walker,Shower Seat with Backrest M2 PT-IP Current Condition Start: 01/31/25 13:31 Freq: NEEDED Status: Active Protocol: Document 01/31/25 11:30 AB (Rec: 01/31/25 13:54 AB [id number]) Physical Therapy Current Condition Current Condition Evaluation Date 01/31/25 Treatment Diagnosis A-fib; RVR; difficulty in walking Onset Date 01/31/25 M3 PT-IP Subjective Start: 01/31/25 13:31 Freq: NEEDED Status: Active Protocol: Document 01/31/25 11:30 AB (Rec: 01/31/25 13:54 AB [id number]) Subjective Physical Therapy Visit Type Type Initial Evaluation Visit Start Time 11:30 Visit Stop Time 12:15 Number of CLOTH FRAMER Visits 0 Physical Therapy Visit Comments Patient Comments agreeable to do PT Therapy Pain Assessment Pain When Pain Assessed At Rest Pain Present Pain Present Pain Reported Location Lower Back Intensity 6 Scale Used Numeric (0 - 10) Pain Management Distraction,Modification of Treatment,Re-positioning, Techniques Timing of Activity with Medications M4 PT-IP Mobility and Gait Start: 01/31/25 13:31 Freq: NEEDED Status: Active Protocol: Document 01/31/25 11:30 AB (Rec: 01/31/25 13:54 AB [id number]) PT-Bed Mobility Assessment Supine to Sit Supine to Sit Standby Assistance PT-Transfer Assessment Sit to and From Stand Sit to and from Contact Guard Assistance,1 Person Assistance,Use of Stand Upper Extremities Equipment Transfer Assistive Gait Belt,Front Wheeled Walker,4 Wheeled Walker Device Orthotic/Prosthetic No Devices or Brace: Transfers Transfer Destination Bed,Chair Transfer Technique ambulated Transfer Ability Level of Assist Contact Guard Assistance,1 Person Assistance,Use of Upper Extremities Comments Mobility Comments pt sitting on the chair and agreed to do PT. spouse in room. obtained PLOF and home set up. BP: 140/75 O2 sat 96% and VA: 89-90 sit to stand from chair CGA and ambulated using FWW to EOB SBA. completed bed mobility SBA. O2 sat: 94-96% and VA: 89-92bpm. no c/o dizziness/lightheadedness. sit to stand from EOB SBA and ambulated in the hallway using 4WW SBA with standing rest breaks in between walking. cues to slow down. ambulated back the the room and sat on chair. O2 sat: 94% VA: 105 BP: 194/83 . positioned pt on the chair. call light and table next to pt. doctor and nurse in room with pt. Gait Assessment Gait Gait Assistance Contact Guard Assist Required: Distance (Feet) 225 Able to Maintain Yes Weight Bearing Status During Gait Assistive Devices Assistive Device Gait Belt,4 Wheeled Walker Orthotic/Prosthetic No Devices or Brace: Gait Deviations General Gait Pattern Decreased Stride Length,Decreased Feet Clearance Factors Limiting Gait Function Factors Limiting Decreased Activity Tolerance,Poor Safety Awareness, Gait Function Respiratory Distress PT-Balance Assessment Sitting Balance and Reactions Static Sitting Normal Balance Ability Dynamic Sitting Good Balance Ability Standing Balance and Reactions Static Standing Good Balance Ability Dynamic Standing Fair Balance Ability Device Used 4WW M5 PT-IP Objective Assessments Start: 01/31/25 13:31 Freq: NEEDED Status: Active Protocol: Document 01/31/25 11:30 AB (Rec: 01/31/25 13:54 AB [id number]) Orientation Orientation/Cognition Level of Alertness Alert Orientation Name,Place,Situation Language Function No Deficits Noted Ability Safety Awareness Understands Safety Issues Memory Description No Deficits Noted Gross Range of Motion Lower Extremity ROM Assessment Within Functional Limits Strength Lower Extremity Strength Assessment Right Impaired Hip 3+/5 Knee 4-/5 Muscle Tone Muscle Tone WNL Yes M6 PT-IP Treatment Start: 01/31/25 13:31 Freq: NEEDED Status: Active Protocol: Document 01/31/25 11:30 AB (Rec: 01/31/25 13:54 AB [id number]) Physical Therapy Treatment Education Education Provided Safety M7 PT-IP Assessment and Plan Start: 01/31/25 13:31 Freq: NEEDED Status: Active Protocol: Document 01/31/25 11:30 AB (Rec: 01/31/25 13:54 AB [id number]) PT Summary Assessment and Plan Potential Rehabilitation Fair Potential Status of Condition Evolving at Evaluation Summary Impairments Pain,ROM,Strength,Balance,Coordination,Sensation,Bed Mobility,Transfers,Gait,Activity Tolerance Assessment Summary pt is a 69 y/o F who is admitted for A-fib, RVR. pt requiring SBA with mobility using 4WW but with decrease activity tolerance affecting mobility. pt plans to go home and spouse to assist. Will see how pt progresses and will re-assess tomorrow for consistency of mobility level and safety and if pt continues to do well, will dc from PT. Goals Bed Mobility Goal Independent Transfer Goal Independent,Four Wheeled Walker Gait Goal Independent,Four Wheel Walker Gait Distance 250 Days to Meet Goals 5 Frequency of Treatment Frequency Of Once a Day Treatment Treatment Plan Physical Therapy Bed Mobility Training,Transfer Training,Gait Training, Treatment Plan Therapeutic Exercise,Balance Retraining,Discharge Planning,Neuromuscular Re-ed,Coordination Retraining Precautions Other Precautions [place] Recommendations To Nursing Amount of Assist 1 Person Assist Needed Discharge Recommendations PT Discharge Home with Assistance Recommendations Transportation Needs Private Vehicle at Discharge - PT assist 1
--- NOTE | 2025-01-31 12:42 | P.PN_ITS ---
Subjective Subjective Date Patient Seen: 01/31/25 Time Patient Seen: 12:43 Interval history: 69-year-old female admitted with right flank pain and multiple comorbidities including coronary artery disease status post 4 vessel bypass chronic atrial fibrillation congestive heart failure systolic and diastolic heart failure status post Watchman. I was consulted for difficult to control rate with atrial fibrillation. She was started on IV diltiazem drip. Since then I have made changes with starting oral diltiazem 360 mg and metoprolol 50 mg twice daily. I also added spironolactone to her regimen because of difficult to control hypertension. She is doing much better her heart rate is much better controlled she is alert and able to sit on the chair. She was able to walk in the hallway. She states that she is breathing better today than before During the visit we discussed her treatment regimen and gave him multiple options for addressing her clinical issues. Exam Vital Signs (past 8 hours): - 01/31/25 05:00 01/31/25 05:00 01/31/25 06:00 Temperature Pulse Rate 89 88 Respiratory Rate 27 H 41 H Blood Pressure 139/59 L Pulse Oximetry Oxygen Delivery Method 01/31/25 06:01 01/31/25 06:01 01/31/25 07:00 Temperature Pulse Rate 87 Respiratory Rate 41 H Blood Pressure 115/64 139/63 Pulse Oximetry Oxygen Delivery Method 01/31/25 07:00 01/31/25 08:00 01/31/25 08:00 Temperature Pulse Rate 89 109 H Respiratory Rate 44 H 27 H Blood Pressure Pulse Oximetry Oxygen Delivery Method Room Air 01/31/25 08:00 01/31/25 08:01 01/31/25 08:01 Temperature 98.4 F Pulse Rate 109 H Respiratory Rate 27 H Blood Pressure 148/79 H Pulse Oximetry 93 Oxygen Delivery Method 01/31/25 08:27 01/31/25 09:00 01/31/25 09:00 Temperature Pulse Rate 108 H 103 H Respiratory Rate 26 H Blood Pressure 148/72 H Pulse Oximetry Oxygen Delivery Method 01/31/25 09:09 01/31/25 10:00 01/31/25 10:01 Temperature Pulse Rate 102 H 98 H 100 H Respiratory Rate 23 27 H Blood Pressure Pulse Oximetry Oxygen Delivery Method 01/31/25 10:01 01/31/25 11:00 01/31/25 11:04 Temperature Pulse Rate 101 H Respiratory Rate 21 Blood Pressure 159/90 H 148/67 H Pulse Oximetry Oxygen Delivery Method 01/31/25 11:04 01/31/25 11:49 01/31/25 11:49 Temperature Pulse Rate 89 90 Respiratory Rate 25 H 26 H Blood Pressure 140/75 Pulse Oximetry 94 Oxygen Delivery Method 01/31/25 12:00 01/31/25 12:01 01/31/25 12:08 Temperature Pulse Rate 89 Respiratory Rate Blood Pressure 194/83 H Pulse Oximetry 96 Oxygen Delivery Method Room Air 01/31/25 12:08 Temperature Pulse Rate 98 H Respiratory Rate 26 H Blood Pressure Pulse Oximetry 96 Oxygen Delivery Method Oxygen Delivery Method Room Air Oxygen Flow Rate 0 Narrative Exam Narrative: She is alert oriented not in any distress her heart rate is in the 90s. Blood pressure was 194 over 83. Const Orientation: oriented x3 HENMT Head: normal to inspection Eyes General: appearance normal, both eyes and all related structures Chest Chest: normal inspection of the chest Resp Auscultation: clear to auscultation bilaterally Cardio Rhythm: abnormal rhythm Heart Sounds: S1 normal and S2 normal Objective ECG Impression: Rhythm strip showed atrial fibrillation with nonspecific ST-T changes. Imaging Echo: My impression: Results are pending. Labs 01/30/25 04:30 01/30/25 04:30 Labs: Laboratory Results - last 24 hr 01/30/25 01/30/25 01/31/25 16:38 21:33 08:01 POC Whole Bld Glucose 257 H 210 H 225 H 01/31/25 11:36 POC Whole Bld Glucose 241 H [facility] Medical History Presence of Watchman left atrial appendage closure device Coronary artery disease involving autologous artery coronary bypass graft Lumbar spondylosis Low back pain Spondylolisthesis at L4-L5 level Ovarian cyst Irregular menstrual cycle Heavy menstrual period Endometriosis Gastritis Esophageal spasm (~2022) Heart failure Atrial fibrillation (~2019) Aortic stenosis (~2019) Cardiac arrest (~2018) Diabetes mellitus BMI greater than 40 History of epistaxis Hypertension Pigmented nevus Skin neoplasm COVID-19 Surgical History Anesthesia Polyp of duodenum (~2023) Pacemaker (~2023) S/P triple vessel bypass (~2019) History of neck surgery (~2008) History of cataract removal with insertion of prosthetic lens (~2012) History of hysterectomy (~2002) Family History Father Hypertension Mother History of heart disease Hypertension Brother History of heart disease Hypertension Brother Hypertension Grandfather No problems noted. Grandmother History of heart disease History of heart attack Grandfather No problems noted. Grandmother Lupus Social History marital status: household members: spouse Type(s) of exercise: none and sedentary lifestyle Assessment & Plan Assessment & Plan narrative: Atrial fibrillation with a rapid ventricular rate and uncontrolled hypertension. Diltiazem extended release 360 mg daily Metoprolol succinate 75 mg twice daily Increased spironolactone to 37.5 mg daily Losartan 50 mg twice daily (patient has known allergies to lisinopril) Discussed about use of Jardiance. Patient can start Jardiance 10 mg daily. It will help her with her diabetes and history of heart failure. Echo results are pending. Possible discharge tomorrow. Time-Based Coding :: [TOTAL MINUTES] spent with patient and on the chart (including review of chart, obtaining history, exam, reviewing outside data, placing orders, documenting exam and treatment plan, and counseling patient) on [DATE].
[2025-01-31] MEDS: METOPROLOL ER 25 MG TABLET PO ×2 (12:51→17:22)
--- NOTE | 2025-01-31 12:58 | PC.NURSE ---
PT OFF DILT GTT AT 1100. WORKING WITH PHYSICAL THERAPY. WALKED AROUND UNITX2 WITH WALKER. HEART RATE IN 90S TO 100S POST WALK. 1200 DR DIALLO AT BEDSIDE DISCUSSING POC WITH PT AND . BP 194/83, AWARE. SEE MAR FOR MED ADJUSTMENTS. MD TO INCREASE METOP TO 75MG AND INCREASE SPIRONOLACTONE TO 37.5MG. POSSIBLE DISCHARGE TOMORROW.
[2025-01-31 13:27] LABS: Add Manual Diff / Slide Review NO; Hematocrit 34.2 % (36-46); Hemoglobin 11.3 g/dL (12.0-16.0); Lymphocytes Absolute Auto 1200 /uL (1100-4500); Mean Corpuscular HGB Conc 32.9 % (30-36); Mean Corpuscular Hemoglobin 27.3 PG (26-34); Mean Corpuscular Volume 82.8 fL (80-100); Platelet Count 346 X10^3/uL (150-400)
[2025-01-31 14:47] LABS: Alanine Aminotransferase 25 IU/L (<35); Albumin 4.0 g/dL (3.5-5.0); Albumin Globulin Ratio 1.0 (1.0-2.8); Alkaline Phosphatase 121 U/L (38-126); Blood Urea Nitrogen 12 mg/dL (7-17); Calcium 8.9 mg/dL (8.4-10.2); Carbon Dioxide 25 mmol/L (22-32); Chloride 100 mmol/L (98-107); Estimated Glomerular Filt Rate > 60 mL/min (>60); Globulin 3.9 g/dL (1.7-4.1); Glucose 217 mg/dL (70-99); HEMOLYSIS < 15 (0-50); Potassium 3.8 mmol/L (3.4-5.1); Sodium 136 mmol/L (137-145); Total Protein 7.9 g/dL (6.3-8.2)
--- NOTE | 2025-01-31 14:49 | DIET.PN1 ---
Dietary Progress Note Assessment: Open to rescheduling her appt with para educator. Ready to learn more about nutrition and BG. Has blood glucose meter at home in closet, doesn't know how to use. Encouraged pt to bring it to first appt with LOGAN. Has only been on metformin at home. Surprised to learn that she can have CHO at meals. Ht: 160.02 cm Wt: 110 kg BMI: 43.0 Last BM: 01/31/25 (01/31/25 10:45) MNA: 14 Timothy Score: 19 Diet: 01/31/25 Breakfast Carbohydrate Consistent Diet Diet Modifications: Carbohydrate level: Medium (3 CHO) Bedtime snack: No Reflex DM orders: No Food Texture: Level 7 - Regular Liquid Consistency: Level 0 - Thin Nutrition Percent Meal Consumed 100% 01/31/25 10:10 Percent Meal Consumed 100% 01/30/25 18:00 Percent Meal Consumed 75% 01/30/25 08:50 Labs: RBC 4.13 X10^6/uL (4.0-5.2) 01/31/25 13:13 Hgb 11.3 g/dL (12.0-16.0) L 01/31/25 13:13 Hct 34.2 % (36-46) L 01/31/25 13:13 Creatinine 0.81 mg/dL (0.52-1.04) 01/31/25 13:13 Hemoglobin A1c 11.3 % (4.0-6.0) H 01/29/25 16:01 Nutrition Diagnosis: Altered nutrition related lab values (A1c%) r/t endocrine dysfunction, food and nutrition related knowledge deficit aeb 11.3% A1c Interventions: -Provided handout on CHO counting and label reading, pt politely declines going over it all at this time d/t exhaustion, briefly reviewed and left with pt Monitoring/Evaluations: f/u PRN inpatient, scheduling team will reach out to pt to f/u outpatient with DM educator for continued support Electronically Signed by: Cristiane Tellez 01/31/25 14:49 Clinical Dietitian [address] [address]
[2025-01-31] MEDS: METFORMIN XR 500 MG TABLET PO (16:55)
[2025-01-31] MEDS: POTASSIUM CHLORIDE 20 MEQ TAB 10 MEQ PO (21:08)
[2025-01-31] MEDS: LOSARTAN 50 MG TABLET PO (21:08)
[2025-01-31] MEDS: METOPROLOL ER 50 MG TABLET 100 MG PO (21:10)
[2025-01-31] MEDS: OXYCODONE IR 5 MG TABLET PO (21:24)
[2025-02-01] VITALS (17 sets, daily range): BP systolic 114–142; BP diastolic 61–93; PULSE 80–89; RESP 18–31; TEMP 35.9–37.1; O2SAT 89–98
[2025-02-01] MEDS: OXYCODONE IR 5 MG TABLET PO (01:11)
[2025-02-01] MEDS: PANTOPRAZOLE DR 20 MG TABLET PO (08:17)
[2025-02-01] MEDS: LOSARTAN 50 MG TABLET PO (08:17)
[2025-02-01] MEDS: SPIRONOLACTONE 25 MG TABLET 37.5 MG PO (08:17)
[2025-02-01] MEDS: POTASSIUM CHLORIDE 20 MEQ TAB 10 MEQ PO (08:18)
[2025-02-01] MEDS: METOPROLOL ER 50 MG TABLET 100 MG PO (08:18)
[2025-02-01] MEDS: FUROSEMIDE 20 MG TABLET PO (08:18)
[2025-02-01] MEDS: INSULIN LISPRO 100 UNIT/ML 3ML VIAL SUBCUT ×2 (08:19→11:40)
[2025-02-01] MEDS: INSULIN GLARGINE 100 UNIT/ML 3ML PEN 12 UNIT SUBCUT (08:19)
[2025-02-01] MEDS: SODIUM CHLORIDE 0.9% FLUSH 10 ML IV (08:20)
[2025-02-01] MEDS: ENOXAPARIN 40 MG/0.4 ML SYRINGE SUBCUT (08:40)
--- NOTE | 2025-02-01 10:48 | P.DS_ITS ---
History of Present Illness History of Present Illness Chief complaint: right flank pain Narrative: From H&P: 9-year-old woman with a history of coronary artery disease post 4 vessel CABG as well as prior cardiac arrest, chronic atrial fibrillation treated with Watchman procedure and rate controlled with diltiazem ER 360 mg, not currently anticoagulated, hypertension, NIDDM, chronic low back and flank pain from spondylisthesis at L4-L5 level, obesity, DM, who presented for flank pain. Two weeks ago seen here in ED with same right flank/abdominal pain, non- revealing CT imaging at that time, suspected duodenal ulcer clinically, sucralfate added at that time to omeprazole. Not tolerating sucralfate which she has subsequently discontinued. Admits to intermittent bloody stools but for many weeks, no black or red stools. In the ED pain subsided with Dilaudid. She then developed rapid atrial fibrillation, failed IVPs of diltiazem and required diltiazem drip and admission to ICU. Discharge Providers Provider Date of admission: 01/31/25 10:35 Discharge Date: 02/01/25 Primary care physician: Raymond Levin MD Consults: 01/30/25 07:49 Consult to Cardiology Routine Comment: Consulting Provider: Jam Ware Reason for consultation: Afib RVR on dilt gtt Has provider been notified: Yes 01/31/25 09:29 Consult to Physical Therapy Evaluate & Treat Comment: Physician Instructions: Evaluate and Treat Discharge provider: Pawel Poole MD Summary Hospital Course Discharge Diagnosis: 1. Atrial fibrillation with RVR, improved. History of Watchman procedure 1 year ago, not anticoagulated. 2. Chronic stable diastolic heart failure, active. 3. CAD with history history of CABG, stable. 4. Uncontrolled hypertension, improved. 5. Noninsulin dependent diabetes, active. 6. Chronic back pain and known lumbar spondylolisthesis, stable. 7. Significant anxiety, active. 9. Morbid obesity with BMI of 43, active. Hospital Course: She was admitted with atrial fibrillation and RVR. She also had poorly controlled blood pressure. Diltiazem drip was initially used and diltiazem 360 p.o. was started. Metoprolol was started at 50 b.i.d. and ultimately escalated to 100 b.i.d.. She was able to come off from diltiazem. She was started on spironolactone which was up titrated as well as losartan. She improved clinically and on the day of discharge she was felt to be stable for discharge. She will be following up with Dr. Ware within the next 1-2 weeks for ongoing management. Status at Discharge Cognitive/behavioral status at discharge: oriented Functional status at discharge: independent ambulation Overall status at discharge: patient is back to baseline Time Spent with Patient Time spent: Greater than 30 minutes Exam Vital Signs (past 8 hours): - 02/01/25 03:00 02/01/25 03:43 02/01/25 03:43 Temperature 97.1 F L Pulse Rate 85 88 Respiratory Rate 25 H 21 Blood Pressure 131/93 H Pulse Oximetry 94 92 Oxygen Delivery Method Oxygen Flow Rate 0 02/01/25 04:00 02/01/25 07:00 02/01/25 08:00 Temperature Pulse Rate 87 80 Respiratory Rate 22 27 H Blood Pressure Pulse Oximetry 89 L Oxygen Delivery Method Room Air Oxygen Flow Rate 02/01/25 08:00 02/01/25 08:11 02/01/25 08:11 Temperature Pulse Rate 85 88 Respiratory Rate 22 24 Blood Pressure 121/70 Pulse Oximetry 98 Oxygen Delivery Method Oxygen Flow Rate 02/01/25 08:17 02/01/25 08:18 02/01/25 08:24 Temperature Pulse Rate 84 83 Respiratory Rate 23 Blood Pressure 121/70 121/70 Pulse Oximetry Oxygen Delivery Method Oxygen Flow Rate 02/01/25 08:24 02/01/25 08:44 02/01/25 08:48 Temperature 96.6 F L Pulse Rate 89 86 Respiratory Rate 22 Blood Pressure 142/70 H 121/70 Pulse Oximetry 94 Oxygen Delivery Method Oxygen Flow Rate 0 02/01/25 09:00 Temperature Pulse Rate 87 Respiratory Rate 30 H Blood Pressure Pulse Oximetry Oxygen Delivery Method Oxygen Flow Rate Oxygen Delivery Method Room Air Oxygen Flow Rate 0 Narrative Exam Narrative: NAD, alert and oriented. Fluent speech. Lungs are clear, normal rate and effort. Heart is regular, no murmur gallop or rub. Abdomen is soft, non distended. Extremities are free of edema. Objective ECG Impression: Intervals [place] Rate: 111 P: LA: QRS: 42 QRSD: 98 T: 126 QT: 330 QTc: 448 Interpretive Statements Atrial fibrillation with rapid ventricular response Incomplete right bundle branch block Cannot rule out Anterior infarct , age undetermined Imaging Abdomen and Pelvis CTA: : Radiologist's impression: CT angiogram of the abdomen and pelvis without evidence for acute aortic syndrome, aneurysmal dilatation, or acute gastrointestinal bleeding. No acute abnormalities identified. Colonic diverticulosis without acute diverticulitis. Normal appendix. Labs 01/31/25 13:13 01/31/25 13:13 Labs: Laboratory Results - last 24 hr 01/31/25 01/31/25 01/31/25 11:36 13:13 16:42 WBC 8.9 RBC 4.13 Hgb 11.3 L Hct 34.2 L MCV 82.8 MCH 27.3 MCHC 32.9 RDW 16.4 H Plt Count 346 Neut % (Auto) 77.0 H Lymph % (Auto) 14.0 L [place] % (Auto) 6.8 Eos % (Auto) 1.2 L Baso % (Auto) 1.0 Neut # (Auto) 6800 Lymph # (Auto) 1200 [place] # (Auto) 600 Eos # (Auto) 100 Baso # (Auto) 100 Sodium 136 L Potassium 3.8 Chloride 100 Carbon Dioxide 25 BUN 12 Creatinine 0.81 Estimated GFR > 60 BUN/Creatinine Ratio 14.8 Glucose 217 H POC Whole Bld Glucose 241 H 188 H Calcium 8.9 Total Bilirubin 0.8 AST 39 H ALT 25 Alkaline Phosphatase 121 Total Protein 7.9 Albumin 4.0 Globulin 3.9 Albumin/Globulin Ratio 1.0 01/31/25 02/01/25 20:59 08:08 WBC RBC Hgb Hct MCV MCH MCHC RDW Plt Count Neut % (Auto) Lymph % (Auto) [place] % (Auto) Eos % (Auto) Baso % (Auto) Neut # (Auto) Lymph # (Auto) [place] # (Auto) Eos # (Auto) Baso # (Auto) Sodium Potassium Chloride Carbon Dioxide BUN Creatinine Estimated GFR BUN/Creatinine Ratio Glucose POC Whole Bld Glucose 220 H 262 H Calcium Total Bilirubin AST ALT Alkaline Phosphatase Total Protein Albumin Globulin Albumin/Globulin Ratio [facility] Medical History Presence of Watchman left atrial appendage closure device Coronary artery disease involving autologous artery coronary bypass graft Lumbar spondylosis Low back pain Spondylolisthesis at L4-L5 level Ovarian cyst Irregular menstrual cycle Heavy menstrual period Endometriosis Gastritis Esophageal spasm (~2022) Heart failure Atrial fibrillation (~2019) Aortic stenosis (~2019) Cardiac arrest (~2017) Diabetes mellitus BMI greater than 40 History of epistaxis Hypertension Pigmented nevus Skin neoplasm COVID-19 Surgical History Anesthesia Polyp of duodenum (~2023) Pacemaker (~2023) S/P triple vessel bypass (~2019) History of neck surgery (~2008) History of cataract removal with insertion of prosthetic lens (~2012) History of hysterectomy (~2002) Family History Father Hypertension Mother History of heart disease Hypertension Brother History of heart disease Hypertension Brother Hypertension Grandfather No problems noted. Grandmother History of heart disease History of heart attack Grandfather No problems noted. Grandmother Lupus Social History marital status: household members: spouse Type(s) of exercise: none and sedentary lifestyle Discharge Assessment & Plan Assessment and Plan Assessment: 1. Atrial fibrillation with RVR, improved. History of Watchman procedure 1 year ago, not anticoagulated. 2. Chronic stable diastolic heart failure, active. 3. CAD with history history of CABG, stable. 4. Uncontrolled hypertension, improved. 5. Noninsulin dependent diabetes, active. 6. Chronic back pain and known lumbar spondylolisthesis, stable. 7. Significant anxiety, active. 9. Morbid obesity with BMI of 43, active. Plan of Treatment: Discharge on medications as noted above with close follow up with Cardiology. She was given a small amount of Xanax and methocarbamol as well as oxycodone for her chronic back pain, back spasm, and anxiety syndrome. Discharge Plan Discharge Plan Patient Disposition: Home Provider Discharge Comment: Stable for discharge home. Close follow up with (cardiology) Discharge orders & Medications Prescriptions: New losartan 50 mg Tablet 50 mg PO BID Qty: 60 2RF spironolactone 25 mg Tablet 37.5 mg PO DAILY Qty: 30 2RF Jardiance 10 mg tablet 10 mg PO DAILY Qty: 30 2RF metoprolol succinate 50 mg Tablet Extended Release 24 Hr 100 mg PO BID Qty: 60 2RF methocarbamol 750 mg tablet 750 mg PO Q8H Qty: 20 0RF oxycodone 5 mg capsule 5 mg PO Q8H PRN (Reason: pain) Qty: 14 0RF alprazolam [Xanax] 0.25 mg tablet 0.25 mg PO BID PRN (Reason: anxiety) Qty: 14 0RF Continued (DME) blood-glucose meter Kit See Rx Instructions .Route Qty: 1 0RF Rx Instructions: As directed to check blood sugar 3 times daily (DME) lancets 33 gauge misc See Rx Instructions .Route Qty: 100 0RF Rx Instructions: As directed to check blood glucose 3 times daily fluticasone propionate 50 mcg/actuation spray,suspension 1 spray intranasal BID PRN (Reason: allergy symptoms) omeprazole 20 mg capsule,delayed release(DR/EC) 20 mg PO BID potassium chloride 20 mEq tablet,ER particles/crystals 20 meq PO BID furosemide 20 mg tablet 20 mg PO BID diltiazem HCl 360 mg capsule,extended release 24hr 360 mg PO DAILY metformin 500 mg tablet extended release 24 hr 500 mg PO ONCE PM benzonatate 200 mg capsule 200 mg PO 3XD PRN (Reason: cough) polyethylene glycol 3350 17 gram/dose powder 17 g PO BID sucralfate [Carafate] 1 gram tablet 1 g PO BID Qty: 60 0RF Medication counseling provided by Pharmacist: No Follow up/Referrals: Raymond Levin MD [Primary Care Provider, [facility]] Discharge Health Status Multidrug resistant organism: No MDRO Diet/Activity/Treatments Diet: Carb-consistent/Diabetic Activity: As tolerated. Visit Report/Discharge Packet Instructions: DI for Atrial Flutter Stand Alone Forms: Patient Portal/API Discharge Data Primary Care Provider: Raymond Levin
--- NOTE | 2025-02-01 11:30 | PT.IPTN ---
Current Diagnoses Type 2 diabetes mellitus without complications (01/31/25) Other chronic pain (01/31/25) Essential (primary) hypertension (01/31/25) Permanent atrial fibrillation (01/31/25) Unspecified atrial fibrillation (01/31/25) Heart failure, unspecified (01/31/25) Unspecified chronic gastritis without bleeding (01/31/25) Gastritis, unspecified, without bleeding (01/31/25) Spondylolisthesis, lumbar region (01/31/25) Spondylosis without myelopathy or radiculopathy, lumbar region (01/31/25) Low back pain, unspecified (01/31/25) Unspecified abdominal pain (01/31/25) Physical Therapy Treatment Note M2 PT-IP Current Condition Start: 01/31/25 13:31 Freq: NEEDED Status: Discharge Protocol: Document 01/31/25 11:30 AB (Rec: 01/31/25 13:54 AB [id number]) Physical Therapy Current Condition Current Condition Evaluation Date 01/31/25 Treatment Diagnosis A-fib; RVR; difficulty in walking Onset Date 01/31/25 M3 PT-IP Subjective Start: 01/31/25 13:31 Freq: NEEDED Status: Discharge Protocol: Document 02/01/25 11:30 AB (Rec: 02/01/25 13:53 AB Desktop) Subjective Physical Therapy Visit Type Type Treatment Note Visit Start Time 11:30 Visit Stop Time 11:45 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 O2 sat 95% [place]: 89-90. sit to stand SBA and pt ambulated in the hallway using 4WW SBA ~ 250 ft. pt at back on the chair. [place]: 110. positioned pt on the chair. call light and table placed within reach. Gait Assessment Gait Gait Assistance Standby Assistance Required: Distance (Feet) 250 Able to Maintain Yes Weight Bearing Status During Gait Assistive Devices Assistive Device Gait Belt,4 Wheeled Walker Orthotic/Prosthetic No Devices or Brace: Gait Deviations General Gait Pattern Decreased Stride Length,Decreased Feet Clearance Factors Limiting Gait Function Factors Limiting Decreased Activity Tolerance,Poor Balance,Respiratory Gait Function Distress M5 PT-IP Objective Assessments Start: 01/31/25 13:31 Freq: NEEDED Status: Discharge Protocol: Document 01/31/25 11:30 AB (Rec: 01/31/25 13:54 AB [id number]) Orientation Orientation/Cognition Level of Alertness Alert Orientation Name,Place,Situation Language Function No Deficits Noted Ability Safety Awareness Understands Safety Issues Memory Description No Deficits Noted Gross Range of Motion Lower Extremity ROM Assessment Within Functional Limits Strength Lower Extremity Strength Assessment Right Impaired Hip 3+/5 Knee 4-/5 Muscle Tone Muscle Tone WNL Yes M6 PT-IP Treatment Start: 01/31/25 13:31 Freq: NEEDED Status: Discharge Protocol: Document 02/01/25 11:30 AB (Rec: 02/01/25 13:53 AB Desktop) Physical Therapy Treatment Education Education Provided Safety M7 PT-IP Assessment and Plan Start: 01/31/25 13:31 Freq: NEEDED Status: Discharge Protocol: Document 02/01/25 11:30 AB (Rec: 02/01/25 13:53 AB Desktop) PT Summary Assessment and Plan Potential Rehabilitation Fair Potential Summary Impairments Strength,Balance,Coordination,Sensation,Bed Mobility, Transfers,Gait,Activity Tolerance Progress Towards Slow Progress due to Activity Tolerance Goals Assessment Summary pt improving with mobility and able to ambulate using 4WW SBA. pt plans to go home and spouse will be able to assist her. Goals Bed Mobility Goal Independent Transfer Goal Independent,Four Wheeled Walker Gait Goal Independent,Four Wheel Walker Gait Distance 250 Days to Meet Goals 5 Frequency of Treatment Frequency Of Once a Day Treatment Treatment Plan Physical Therapy Bed Mobility Training,Transfer Training,Gait Training, Treatment Plan Therapeutic Exercise,Balance Retraining,Discharge Planning,Neuromuscular Re-ed,Coordination Retraining Recommendations To Nursing Amount of Assist 1 Person Assist Needed Discharge Recommendations PT Discharge Home with Assistance Recommendations Transportation Needs Private Vehicle at Discharge - PT assist 1
--- NOTE | 2025-02-01 13:04 | PC.NURSE ---
IC D/C'D. 1258 DISCHARGE DISCUSSED WITH PATIENT/ . ALL QUESTIONS ANSWERED. SIGNATURE PAGE SIGNED AND PLACED IN CHART.
--- NOTE | 2025-02-01 14:01 | CM.DPC ---
DCP Discharge Home Per MD, pt medically stable to discharge home today with outpt f/u and no identified barriers to discharge. Per RN, dc instructions provided to pt and spouse bedside and no concerns noted and spouse provided transport home. COLEEN Dial
== END 2025-02-01 13:00 | disposition home or self-care (01) | DRG 309 ==
LOC: ED 23:41 → AC 23:43 → ICU 23:55
PROVIDERS: Emergency Medicine; Internal Medicine Cardiovascular Disease; Admitting Provider Internal Medicine; Emergency Provider Emergency Medicine; PCP Family Medicine; Visit Provider Internal Medicine
DX: I48.21 Permanent atrial fibrillation (principal); I50.32 Chronic diastolic (congestive) heart failure; Z68.41 Body mass index [BMI] 40.0-44.9, adult; M43.16 Spondylolisthesis, lumbar region; I25.10 Atherosclerotic heart disease of native coronary artery without angina pectoris; E11.9 Type 2 diabetes mellitus without complications; K29.70 Gastritis, unspecified, without bleeding; K21.9 Gastro-esophageal reflux disease without esophagitis; K27.9 Peptic ulcer, site unspecified, unspecified as acute or chronic, without hemorrhage or perforation; I11.0 Hypertensive heart disease with heart failure; F41.9 Anxiety disorder, unspecified; E66.01 Morbid (severe) obesity due to excess calories; I25.2 Old myocardial infarction; Z95.1 Presence of aortocoronary bypass graft; Z95.818 Presence of other cardiac implants and grafts; Z79.84 Long term (current) use of oral hypoglycemic drugs
CPT/HCPCS: 36415; 74174; 80048; 80053; 81003; 82962; 83036; 83690; 84484; 85014; 85018; 85025; 85610; 87797; 93005; 96361; 96365; 96375; 96376; 97116; 97161; 97530; 99284; 99291; G0378; J0153; J1171; J1650; J1815; J2405; J2470; Q9967

== ENCOUNTER 2025-03-28 08:45 | Inpatient (IN) | payer MEDICARE, SELFPAY ==
[2025-02-22 18:19] VITALS: BMI 42.5
[2025-03-28] VITALS (17 sets, daily range): BP systolic 100–137; BP diastolic 48–95; PULSE 40–77; RESP 16–40; TEMP 36.1–36.4; O2SAT 96–98; BMI 43.1; BMI 42.0
--- NOTE | 2025-03-28 08:51 | EKG_ITS ---
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
--- NOTE | 2025-03-28 09:09 | ED.ARRPALP ---
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 On review of systems endorses some mild chest discomfort and shortness of breath although admits she has had waxing and waning issues with her breathing. She is prescribed spironolactone and torsemide she says for history of heart failure, falls with community cardiology Dr. Ware. She is not on anticoagulation. She is prescribed diltiazem Related Data Home Medications ?Medication ?Instructions ?Recorded ?Confirmed diltiazem HCl 360 mg 360 mg PO DAILY 07/04/24 03/28/25 capsule,extended release 24 hr fluticasone propionate 50 1 spray intranasal BID PRN allergy 07/04/24 03/28/25 mcg/actuation nasal symptoms spray,suspension omeprazole 20 mg capsule,delayed 20 mg PO BID 07/04/24 03/28/25 release potassium chloride 20 mEq 20 meq PO BID 07/04/24 03/28/25 tablet,extended release(part/cryst) metformin 500 mg tablet,extended 500 mg PO ONCE PM 12/04/24 03/28/25 release 24 hr benzonatate 200 mg capsule 200 mg PO 3XD PRN cough 01/30/25 03/28/25 polyethylene glycol 3350 17 17 g PO BID 01/30/25 03/28/25 gram/dose oral powder diltiazem HCl 360 mg 360 mg PO DAILY 03/28/25 03/28/25 tablet,extended release 24 hr ondansetron HCl 4 mg tablet 4 mg PO BID PRN nausea/vomiting 03/28/25 03/28/25 pantoprazole 40 mg tablet,delayed 40 mg PO BID 03/28/25 03/28/25 release pregabalin 75 mg capsule 75 mg PO BID 03/28/25 03/28/25 Previous Rx's ?Medication ?Instructions ?Recorded empagliflozin 10 mg tablet 10 mg PO DAILY #30 tabs 02/01/25 (Jardiance) losartan 50 mg tablet 50 mg PO BID #60 tabs 02/01/25 oxycodone 5 mg capsule 5 mg PO Q8H PRN pain #14 caps 02/01/25 metoprolol succinate 100 mg 100 mg PO BID #60 tabs 02/25/25 tablet,extended release 24 hr spironolactone 50 mg tablet 50 mg PO BID #60 tabs 02/25/25 torsemide 20 mg tablet 40 mg (2 x 20 mg) PO QAM #60 tabs 02/25/25 Allergies Allergy/AdvReac Type Severity Reaction Status Date / Time epinephrine (EPINEPHRINE) Allergy Unknown doesn't Verified 03/28/25 08:49 work lisinopril Allergy Unknown Stroke Verified 03/28/25 08:49 hydromorphone (From Dilaudid) AdvReac Severe Vomiting Verified 03/28/25 08:49 [id number] Reductase AdvReac Severe Joint Pain Verified 03/28/25 08:49 Inhibitor codeine (CODEINE) AdvReac Unknown Hives Verified 03/28/25 08:49 gabapentin AdvReac Unknown Verified 03/28/25 08:49 naproxen AdvReac Unknown Verified 03/28/25 08:49 Review of Systems Review of Systems Narrative: Pertinent ROS obtained and negative except as stated in HPI Patient History Medical History Acute on chronic systolic and diastolic heart failure, NYHA class 3 Presence of Watchman left atrial appendage closure device Coronary artery disease involving autologous artery coronary bypass graft Lumbar spondylosis Low back pain Spondylolisthesis at L4-L5 level Ovarian cyst Irregular menstrual cycle Heavy menstrual period Endometriosis Gastritis Esophageal spasm (~2022) Heart failure Atrial fibrillation (~2019) Aortic stenosis (~2019) Cardiac arrest (~2018) Diabetes mellitus BMI greater than 40 History of epistaxis Hypertension Pigmented nevus Skin neoplasm COVID-19 Surgical History Anesthesia Polyp of duodenum (~2023) Pacemaker (~2023) S/P triple vessel bypass (~2019) History of neck surgery (~2008) History of cataract removal with insertion of prosthetic lens (~2012) History of hysterectomy (~2002) Family History Father Hypertension Mother History of heart disease Hypertension Brother History of heart disease Hypertension Brother Hypertension Grandfather No problems noted. Grandmother History of heart disease History of heart attack Grandfather No problems noted. Grandmother Lupus Social History marital status: household members: spouse and family Smoking Status: Never smoker Type(s) of exercise: none and sedentary lifestyle Smoking Status: Never smoker alcohol intake frequency: a few times a week Alcohol type: wine Exam Initial Vital Signs Initial Vital Signs: Vital Signs Oxygen Delivery Method Room Air 03/28/25 08:45 Constitutional: Well appearing, no acute distress Head: NCAT Cardiovascular: slow, irregular, no murmur or rub Pulmonary: CTA bilaterally, no respiratory distress Abdominal: soft, non-tender Extremities: No LE edema Skin: warm and dry, no diaphoresis Neurological: Alert and oriented x3 Course Orders Ordered: Acetaminophen (Acetaminophen 325 Mg Tablet) 650 mg PO Q6H PRN PRN Reason: Fever/Mild Pain (1-3) Last Admin: 03/29/25 15:10 Dose: 650 mg Documented By: Admin: 03/29/25 00:47 Dose: 650 mg Documented By: Admin: 03/28/25 14:13 Dose: 650 mg Documented By: AV Benzonatate (Benzonatate 100 Mg Capsule) 100 mg PO TID PRN PRN Reason: Cough Last Admin: 03/29/25 13:05 Dose: 100 mg Documented By: PATEL Calcium Carbonate (Calcium Carbonate 500 Mg Tab) 500 mg PO PRN PRN PRN Reason: Dyspepsia Last Admin: 03/29/25 15:10 Dose: 500 mg Documented By: PATEL Diltiazem HCl (Diltiazem Cd 120 Mg Cap) 240 mg PO DAILY MAGDY Last Admin: 03/29/25 15:07 Dose: 240 mg Documented By: PATEL Dextrose (D10w) 100 mls @ 999 mls/hr IV PRN PRN PRN Reason: Hypoglycemia Insulin Glargine (Insulin Glargine 100 Unit/Ml 3ml Pen) 10 unit SUBCUT BEDTIME MAGDY Insulin Human Lispro (Insulin Lispro 100 Unit/Ml 3ml Vial) 0 unit SUBCUT ACHS MAGDY; Protocol Last Admin: 03/29/25 16:42 Dose: 3 unit Documented By: PATEL Co-signed By: PAULA Admin: 03/29/25 12:06 Dose: 4 unit Documented By: PATEL Co-signed By: PAULA Admin: 03/29/25 07:59 Dose: 3 unit Documented By: PATEL Co-signed By: JONATAN Admin: 03/28/25 21:10 Dose: 1 unit Documented By: RAUL Co-signed By: MARLENA Admin: 03/28/25 16:19 Dose: 3 unit Documented By: BARBARA Co-signed By: SUZANNE Losartan Potassium (Losartan 50 Mg Tablet) 50 mg PO BID [facility] Last Admin: 03/29/25 08:03 Dose: 50 mg Documented By: Admin: 03/28/25 21:05 Dose: 50 mg Documented By: RAUL Metoprolol Succinate (Metoprolol Er 50 Mg Tablet) 50 mg PO BID [facility] Last Admin: 03/29/25 15:07 Dose: 50 mg Documented By: PATEL Metoprolol Tartrate (Metoprolol Tartrate 5 Mg/5 Ml Inj) 5 mg IV Q2HR PRN PRN Reason: Heart Rate- High Last Admin: 03/29/25 18:48 Dose: 5 mg Documented By: Admin: 03/29/25 16:57 Dose: 5 mg Documented By: PATEL Naloxone HCl (Naloxone 0.4 Mg/Ml Vial) 0.2 mg IV Q2MIN PRN PRN Reason: Opiate Reversal Oxycodone HCl (Oxycodone Ir 5 Mg Tablet) 5 mg PO Q8H PRN PRN Reason: pain Pantoprazole Sodium (Pantoprazole Dr 40 Mg Tablet) 40 mg PO BID [facility] Last Admin: 03/29/25 08:03 Dose: 40 mg Documented By: Admin: 03/28/25 21:03 Dose: 40 mg Documented By: RAUL Polyethylene Glycol (Polyethylene Glycol 3350 17 Gm Powd.Pack) 17 gm PO BEDTIME [facility] Last Admin: 03/28/25 22:51 Dose: 17 gm Documented By: ANITHA Pregabalin (Pregabalin 75 Mg Capsule) 75 mg PO BID [facility] Last Admin: 03/29/25 11:23 Dose: Not Given Documented By: Admin: 03/28/25 21:32 Dose: Not Given Documented By: RAUL Spironolactone (Spironolactone 25 Mg Tablet) 50 mg PO BID [facility] Last Admin: 03/29/25 08:04 Dose: 50 mg Documented By: Admin: 03/28/25 21:33 Dose: Not Given Documented By: RAUL Torsemide (Torsemide 10 Mg Tablet) 40 mg PO DAILY [facility] Last Admin: 03/29/25 08:03 Dose: 40 mg Documented By: MM Discontinued Medications Pantoprazole Sodium (Pantoprazole Dr 20 Mg Tablet) 20 mg PO BID [facility] Last Admin: 03/28/25 21:00 Dose: Not Given Documented By: RAUL Vital Signs Vital signs: Vital Signs - 8 hr 03/28/25 08:45 03/28/25 08:47 03/28/25 08:50 Pulse Rate 43 L Respiratory Rate 20 Blood Pressure 100/48 L Pulse Oximetry Oxygen Delivery Method Room Air 03/28/25 08:50 03/28/25 09:00 03/28/25 09:10 Pulse Rate 42 L 42 L 47 L Respiratory Rate 23 23 24 Blood Pressure Pulse Oximetry 98 98 98 Oxygen Delivery Method 03/28/25 09:10 03/28/25 09:30 03/28/25 09:31 Pulse Rate 45 L Respiratory Rate 19 Blood Pressure 117/68 137/62 Pulse Oximetry 97 Oxygen Delivery Method 03/28/25 09:31 03/28/25 10:00 03/28/25 10:05 Pulse Rate 44 L 47 L 43 L Respiratory Rate 23 40 H 21 Blood Pressure Pulse Oximetry 98 97 97 Oxygen Delivery Method 03/28/25 10:05 Pulse Rate Respiratory Rate Blood Pressure 120/95 H Pulse Oximetry Oxygen Delivery Method MDM - Arrhythmia/Palpitations Medical Records Medical records narrative: This is a 69-year-old female with history of atrial fibrillation status post Watchman procedure here with lightheadedness, found to be in route in slow atrial flutter with normotension. She does endorse on review of systems a very mild central chest discomfort and shortness of breath. Lungs are clear no significant fluid overload. We will send laboratories as screen for electrolyte or metabolic derangement, troponin to screen for ACS, D-dimer to screen for PE. EKG on arrival does confirm atrial flutter with variable block, ventricular rates in the 30s to 40s. Patient is normotensive with systolic in the 100s, alert oriented, following commands. We will reach out to cardiology colleagues regarding next steps Patient states desires to follow up with Dr. Ware although has seen [facility] cardiology before EKG 0851 atrial flutter with variable block ventricular rate in the 30s, QRS 100, QTC 347 Dr. Ware at bedside, rec's transfer for PCM placement. Discussed case with Dr. Mulligan of [facility] cardiology recommends hold diltiazem and metoprolol, admit to [facility] for observation, may resume metoprolol 50 mg b.i.d. tomorrow with heart rate increasing. If heart rate continues to be low can consider transfer at that time for consultation for cardiac pacemaker Discussed case with Internal Medicine physician Dr. Poole who accepts patient for further cares. Dr. Ware aware and agrees with plan. On reassessment of the patient at 10:30 a.m. she is resting comfortably in bed. She remains normotensive Laboratories no leukocytosis no anemia normal platelets, nonelevated D-dimer, potassium slightly high at 5.3 without peaked T-waves, sodium low 134. 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 Will defer IV fluids give hx HF. Lab Data 03/28/25 09:05 03/28/25 09:05 Labs: Lab Results 03/28/25 Range/Units 09:05 WBC 10.3 (4.5-11.0) X10^3/uL RBC 4.55 (4.0-5.2) X10^6/uL Hgb 12.2 (12.0-16.0) g/dL Hct 37.9 (36-46) % MCV 83.2 (80-100) fL MCH 26.7 (26-34) PG MCHC 32.1 (30-36) % RDW 17.9 H (11.6-14.8) % Plt Count 345 (150-400) X10^3/uL Neut % (Auto) 73.8 (50-75) % Lymph % (Auto) 19.3 L (25-40) % [place] % (Auto) 5.3 (3-14) % Eos % (Auto) 0.9 L (2-4) % Baso % (Auto) 0.7 (0-2) % Neut # (Auto) 7600 H (1325-0406) /uL Lymph # (Auto) 2000 (8132-5324) /uL [place] # (Auto) 600 (0-900) /uL Eos # (Auto) 100 (0-450) /uL Baso # (Auto) 100 (0-100) /uL D-Dimer 310 (<500) ng/ml Sodium 134 L (137-145) mmol/L Potassium 5.3 H (3.4-5.1) mmol/L Chloride 99 (98-107) mmol/L Carbon Dioxide 20 L (22-32) mmol/L BUN 28 H (7-17) mg/dL Creatinine 1.47 H (0.52-1.04) mg/dL Estimated GFR 38 L (>60) mL/min BUN/Creatinine Ratio 19.0 (6-22) Glucose 388 H (70-99) mg/dL Calcium 10.1 (8.4-10.2) mg/dL Magnesium 1.5 L (1.6-2.3) mg/dL Total Bilirubin 0.5 (0.2-1.3) mg/dL AST 26 (14-36) IU/L ALT 20 (<35) IU/L Alkaline Phosphatase 161 H (38-126) U/L Troponin I < 0.012 (0.01-0.034) ng/mL Total Protein 8.7 H (6.3-8.2) g/dL Albumin 4.5 (3.5-5.0) g/dL Globulin 4.2 H (1.7-4.1) g/dL Albumin/Globulin Ratio 1.1 (1.0-2.8) TSH 2.29 (0.47-4.68) uIU/mL Discharge Plan Departure Patient Disposition: Admitted As Inpatient Clinical Impression: Atrial flutter, Bradycardia Admit Date/Time: 03/28/25 10:24 Admit Provider: Pawel Poole
--- NOTE | 2025-03-28 09:13 | PC.NURSE ---
Placed on pacer pads. Code Cart at bedside. Patient has intermittent episodes of feeling like I am going to faint Mild pressure in chest.
[2025-03-28 09:18] LABS: Add Manual Diff / Slide Review NO; Hematocrit 37.9 % (36-46); Hemoglobin 12.2 g/dL (12.0-16.0); Lymphocytes Absolute Auto 2000 /uL (1100-4500); Mean Corpuscular HGB Conc 32.1 % (30-36); Mean Corpuscular Hemoglobin 26.7 PG (26-34); Mean Corpuscular Volume 83.2 fL (80-100); Platelet Count 345 X10^3/uL (150-400)
[2025-03-28 09:38] LABS: Alanine Aminotransferase 20 IU/L (<35); Albumin 4.5 g/dL (3.5-5.0); Albumin Globulin Ratio 1.1 (1.0-2.8); Alkaline Phosphatase 161 U/L (38-126); Blood Urea Nitrogen 28 mg/dL (7-17); Calcium 10.1 mg/dL (8.4-10.2); Carbon Dioxide 20 mmol/L (22-32); Chloride 99 mmol/L (98-107); Estimated Glomerular Filt Rate 38 mL/min (>60); Globulin 4.2 g/dL (1.7-4.1); Glucose 388 mg/dL (70-99); HEMOLYSIS 16 (0-50); Magnesium 1.5 mg/dL (1.6-2.3); Potassium 5.3 mmol/L (3.4-5.1); Sodium 134 mmol/L (137-145); Total Protein 8.7 g/dL (6.3-8.2)
[2025-03-28 09:50] LABS: Troponin I < 0.012 ng/mL (0.01-0.034)
[2025-03-28 10:09] LABS: Thyroid Stimulating Hormone 2.29 uIU/mL (0.47-4.68)
--- NOTE | 2025-03-28 10:26 | PC.NURSE ---
HOLIDAY DETECTOR OPERATOR Note: Consult with Jose Crzu completed.
--- NOTE | 2025-03-28 12:07 | PM.HP.1 ---
History of Present Illness History of Present Illness Date Patient Seen: 03/28/25 Time Patient Seen: 12:00 Chief complaint: Arrhythmia Narrative: 69-year-old female with a history of chronic systolic heart failure, atrial fibrillation, a Watchman procedure, and diabetes. She would 3 episodes of feeling extremely lightheaded today. After the 3rd episode her called 911 and they found her to have a bradycardia in the mid 30s. She takes metoprolol 100 b.i.d. and diltiazem daily for rate control. She was on chronic anticoagulation. She was transported by ambulance to the hospital where she was given a fluid bolus and stabilized. The case was discussed with Dr. Ware of cardiology initially and Dr. Mulligan of [facility] after. There was an initial thought that she may require transfer for pacemaker consideration. Dr. Mulligan recommended observing her here with a washout of metoprolol and diltiazem to see if her bradycardia improved. If this fails to improve then she would need to be transferred. She denies any recent dose increases in her rate limiting drugs. Nothing else has been ongoing recently. There has been no report of chest pain. She was chronic leg edema but this is actually better than usual. She did have a COVID and flu shot about 5 days ago. [facility] Medical History Acute on chronic systolic and diastolic heart failure, NYHA class 3 Presence of Watchman left atrial appendage closure device Coronary artery disease involving autologous artery coronary bypass graft Lumbar spondylosis Low back pain Spondylolisthesis at L4-L5 level Ovarian cyst Irregular menstrual cycle Heavy menstrual period Endometriosis Gastritis Esophageal spasm (~2022) Heart failure Atrial fibrillation (~2019) Aortic stenosis (~2019) Cardiac arrest (~2018) Diabetes mellitus BMI greater than 40 History of epistaxis Hypertension Pigmented nevus Skin neoplasm COVID-19 Surgical History Anesthesia Polyp of duodenum (~2023) Pacemaker (~2023) S/P triple vessel bypass (~2019) History of neck surgery (~2008) History of cataract removal with insertion of prosthetic lens (~2012) History of hysterectomy (~2002) Family History Father Hypertension Mother History of heart disease Hypertension Brother History of heart disease Hypertension Brother Hypertension Grandfather No problems noted. Grandmother History of heart disease History of heart attack Grandfather No problems noted. Grandmother Lupus Social History marital status: household members: spouse Type(s) of exercise: none and sedentary lifestyle Meds Home Medications and Allergies Home Medications ?Medication ?Instructions ?Recorded ?Confirmed ?Type diltiazem HCl 360 mg 360 mg PO DAILY 07/04/24 03/28/25 History capsule,extended release 24 hr fluticasone propionate 50 1 spray intranasal BID PRN allergy 07/04/24 03/28/25 History mcg/actuation nasal symptoms spray,suspension omeprazole 20 mg capsule,delayed 20 mg PO BID 07/04/24 03/28/25 History release potassium chloride 20 mEq 20 meq PO BID 07/04/24 03/28/25 History tablet,extended release(part/cryst) metformin 500 mg tablet,extended 500 mg PO ONCE PM 12/04/24 03/28/25 History release 24 hr benzonatate 200 mg capsule 200 mg PO 3XD PRN cough 01/30/25 01/30/25 History polyethylene glycol 3350 17 17 g PO BID 01/30/25 03/28/25 History gram/dose oral powder empagliflozin 10 mg tablet 10 mg PO DAILY #30 tabs 02/01/25 03/28/25 Rx (Jardiance) losartan 50 mg tablet 50 mg PO BID #60 tabs 02/01/25 03/28/25 Rx oxycodone 5 mg capsule 5 mg PO Q8H PRN pain #14 caps 02/01/25 Rx metoprolol succinate 100 mg 100 mg PO BID #60 tabs 02/25/25 03/28/25 Rx tablet,extended release 24 hr spironolactone 50 mg tablet 50 mg PO BID #60 tabs 02/25/25 03/28/25 Rx torsemide 20 mg tablet 40 mg (2 x 20 mg) PO QAM #60 tabs 02/25/25 03/28/25 Rx diltiazem HCl 360 mg 360 mg PO DAILY 03/28/25 03/28/25 History tablet,extended release 24 hr ondansetron HCl 4 mg tablet 4 mg PO BID PRN nausea/vomiting 03/28/25 03/28/25 History pantoprazole 40 mg tablet,delayed 40 mg PO BID 03/28/25 03/28/25 History release pregabalin 75 mg capsule 75 mg PO BID 03/28/25 03/28/25 History Allergies Allergy/AdvReac Type Severity Reaction Status Date / Time epinephrine (EPINEPHRINE) Allergy Unknown doesn't Verified 03/28/25 08:49 work lisinopril Allergy Unknown Stroke Verified 03/28/25 08:49 hydromorphone (From Dilaudid) AdvReac Severe Vomiting Verified 03/28/25 08:49 [id number] Reductase AdvReac Severe Joint Pain Verified 03/28/25 08:49 Inhibitor codeine (CODEINE) AdvReac Unknown Hives Verified 03/28/25 08:49 gabapentin AdvReac Unknown Verified 03/28/25 08:49 naproxen AdvReac Unknown Verified 03/28/25 08:49 Review of Systems Review of Systems Narrative: All else reviewed and otherwise unremarkable except as noted in the history and physical. Exam Vital Signs (past 8 hours): - 03/28/25 08:45 03/28/25 08:47 03/28/25 08:50 Pulse Rate 43 L Respiratory Rate 20 Blood Pressure 100/48 L Pulse Oximetry Oxygen Delivery Method Room Air 03/28/25 08:50 03/28/25 09:00 03/28/25 09:10 Pulse Rate 42 L 42 L 47 L Respiratory Rate 23 23 24 Blood Pressure Pulse Oximetry 98 98 98 Oxygen Delivery Method 03/28/25 09:10 03/28/25 09:30 03/28/25 09:31 Pulse Rate 45 L Respiratory Rate 19 Blood Pressure 117/68 137/62 Pulse Oximetry 97 Oxygen Delivery Method 03/28/25 09:31 03/28/25 10:00 03/28/25 10:05 Pulse Rate 44 L 47 L 43 L Respiratory Rate 23 40 H 21 Blood Pressure Pulse Oximetry 98 97 97 Oxygen Delivery Method 03/28/25 10:05 03/28/25 10:30 03/28/25 11:00 Pulse Rate 48 L 45 L Respiratory Rate 29 H 24 Blood Pressure 120/95 H Pulse Oximetry 98 97 Oxygen Delivery Method 03/28/25 11:01 03/28/25 11:01 Pulse Rate 44 L Respiratory Rate 28 H Blood Pressure 108/55 L Pulse Oximetry 97 Oxygen Delivery Method Oxygen Delivery Method Room Air Narrative Exam Narrative: NAD, alert and oriented, fluent speech, calm. Normocephalic skull, EOMI, anicteric sclera, symmetric pupils. Oropharynx unremarkable, no droop. Neck supple, midline trachea, no adenopathy. Lungs clear, normal rate and effort. Heart irregular, no murmur gallop or rub. Bradycardic. Abdomen is soft, non distended and non tender. Extremities with 1-2+ of edema. Skin is free of rash or lesions. Lower legs have venous stasis changes. Joints are not swollen or deformed. Judgment appears to be normal. Objective ECG Impression: AF with Slow bradycardia. Imaging Chest CTA:: Radiologist's impression: No signs of pulmonary emboli Findings suggestive of mild interstitial and alveolar pulmonary edema, with very small bilateral pleural effusions. Labs 03/28/25 09:05 03/28/25 09:05 Labs: Laboratory Results - last 24 hr 03/28/25 03/28/25 09:05 11:55 WBC 10.3 RBC 4.55 Hgb 12.2 Hct 37.9 MCV 83.2 MCH 26.7 MCHC 32.1 RDW 17.9 H Plt Count 345 Neut % (Auto) 73.8 Lymph % (Auto) 19.3 L [place] % (Auto) 5.3 Eos % (Auto) 0.9 L Baso % (Auto) 0.7 Neut # (Auto) 7600 H Lymph # (Auto) 2000 [place] # (Auto) 600 Eos # (Auto) 100 Baso # (Auto) 100 D-Dimer 310 Sodium 134 L Potassium 5.3 H Chloride 99 Carbon Dioxide 20 L BUN 28 H Creatinine 1.47 H Estimated GFR 38 L BUN/Creatinine Ratio 19.0 Glucose 388 H POC Whole Bld Glucose 287 H Calcium 10.1 Magnesium 1.5 L Total Bilirubin 0.5 AST 26 ALT 20 Alkaline Phosphatase 161 H Troponin I < 0.012 Total Protein 8.7 H Albumin 4.5 Globulin 4.2 H Albumin/Globulin Ratio 1.1 TSH 2.29 Assessment & Plan Assessment & Plan narrative: 1. Atrial fibrillation with pronounced bradycardia, on metoprolol and diltiazem without recent dose changes. 2. Remote Watchman procedure. 3. Chronic systolic heart failure. 4. Aortic stenosis. 5. Remote cardiac arrest. 6. DM 2 7. HTN. PLAN: -metoprolol and diltiazem. -telemetry -continue other usual medications. -see if bradycardia improves with washout. Otherwise, she would require transfer for potential pacemaker. The patient understands the plan. She was full resuscitation. is proxy decision maker. She was in [place]. Anticipate 2 midnights in the hospital, supports inpatient status. Time-Based Coding :: [TOTAL MINUTES] spent with patient and on the chart (including review of chart, obtaining history, exam, reviewing outside data, placing orders, documenting exam and treatment plan, and counseling patient) on [DATE].
--- NOTE | 2025-03-28 12:36 | PC.ADMIT ---
[email or web address] Admission Note: PT ARRIVED FROM ED VIA STRETCHER. A/OX4. NO C/O CHEST PAIN OR LIGHTHEADEDNESS AT THIS TIME. STANDY-BY ASSIST TRANSFER FROM STRETCHER TO BED. SPO2 98% ON ROOM AIR. NO C/O SOB OR S/S OF RESPI DISTRESS NOTED. HEART RATE 30-40S. SEE VITALS. PADS ON PATIENT AT THIS TIME. MD AWARE. MERA AT BEDSIDE DISCUSSING PLAN OF CARE WITH PATIENT. PLAN TO KEEP PATIENT UNDER OBSERVATION AND HOLD CARDIAC RATE CONTROL MEDS. PT AGREEABLE WITH PLAN. ALL QUESTIONS ANSWERED. PATIENT BLOOD SUGAR 287 . REQUESTED SLIDING SCALE FROM . MED RED UPDATED IN CHART. CARE ONGOING. The patient,Jessenia Peres,69 y/o, was given written information regarding hospital policies, unit procedures and contact persons. Patient's smoking status: Never smoker. Vital Signs - 8 hr 03/28/25 08:45 03/28/25 08:47 03/28/25 08:50 Temperature Pulse Rate 43 L Respiratory Rate 20 Blood Pressure 100/48 L Pulse Oximetry Oxygen Delivery Method Room Air Oxygen Flow Rate 03/28/25 08:50 03/28/25 09:00 03/28/25 09:10 Temperature Pulse Rate 42 L 42 L 47 L Respiratory Rate 23 23 24 Blood Pressure Pulse Oximetry 98 98 98 Oxygen Delivery Method Oxygen Flow Rate 03/28/25 09:10 03/28/25 09:30 03/28/25 09:31 Temperature Pulse Rate 45 L Respiratory Rate 19 Blood Pressure 117/68 137/62 Pulse Oximetry 97 Oxygen Delivery Method Oxygen Flow Rate 03/28/25 09:31 03/28/25 10:00 03/28/25 10:05 Temperature Pulse Rate 44 L 47 L 43 L Respiratory Rate 23 40 H 21 Blood Pressure Pulse Oximetry 98 97 97 Oxygen Delivery Method Oxygen Flow Rate 03/28/25 10:05 03/28/25 10:30 03/28/25 11:00 Temperature Pulse Rate 48 L 45 L Respiratory Rate 29 H 24 Blood Pressure 120/95 H Pulse Oximetry 98 97 Oxygen Delivery Method Oxygen Flow Rate 03/28/25 11:01 03/28/25 11:01 03/28/25 11:25 Temperature 97.1 F L Pulse Rate 44 L 42 L Respiratory Rate 28 H 16 Blood Pressure 108/55 L 111/57 L Pulse Oximetry 97 98 Oxygen Delivery Method Oxygen Flow Rate 0 03/28/25 12:00 Temperature Pulse Rate Respiratory Rate Blood Pressure Pulse Oximetry Oxygen Delivery Method Room Air Oxygen Flow Rate
[2025-03-28 12:57] LABS: Troponin I < 0.012 ng/mL (0.01-0.034)
[2025-03-28] MEDS: ACETAMINOPHEN 325 MG TABLET 650 MG PO (14:13)
[2025-03-28] MEDS: INSULIN LISPRO 100 UNIT/ML 3ML VIAL SUBCUT ×2 (16:19→21:10)
[2025-03-28] MEDS: PANTOPRAZOLE DR 40 MG TABLET PO (21:03)
[2025-03-28] MEDS: LOSARTAN 50 MG TABLET PO (21:05)
[2025-03-29] VITALS (9 sets, daily range): BP systolic 110–127; BP diastolic 52–77; PULSE 69–103; RESP 16–20; TEMP 35.8–36.4; O2SAT 95–98
[2025-03-29] MEDS: ACETAMINOPHEN 325 MG TABLET 650 MG PO ×3 (00:47→23:34)
[2025-03-29] MEDS: INSULIN LISPRO 100 UNIT/ML 3ML VIAL SUBCUT ×4 (07:59→21:21)
[2025-03-29] MEDS: TORSEMIDE 10 MG TABLET 40 MG PO (08:03)
[2025-03-29] MEDS: LOSARTAN 50 MG TABLET PO ×2 (08:03→21:20)
[2025-03-29] MEDS: PANTOPRAZOLE DR 40 MG TABLET PO ×2 (08:03→21:20)
[2025-03-29] MEDS: SPIRONOLACTONE 25 MG TABLET 50 MG PO ×2 (08:04→21:21)
--- NOTE | 2025-03-29 09:25 | EKG_ITS ---
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
[2025-03-29] MEDS: BENZONATATE 100 MG CAPSULE PO (13:05)
--- NOTE | 2025-03-29 13:52 | PC.NURSE ---
Notified MD Dunn of increased POC BG above 300 (326); aware and made adjustments to sliding scale insulin for next ACHS.
--- NOTE | 2025-03-29 14:04 | P.PN_ITS ---
Subjective Subjective Date Patient Seen: 03/29/25 Interval history: Chief complaint: Lightheaded dizziness near syncope secondary to bradycardia with variable AV block underlying rhythm atrial flutter History of present illness: 03/28: 69-year-old female with a history of chronic systolic heart failure, atrial fibrillation, a Watchman procedure, and diabetes. She would 3 episodes of feeling extremely lightheaded today. After the 3rd episode her called 911 and they found her to have a bradycardia in the mid 30s. She takes metoprolol 100 b.i.d. and diltiazem daily for rate control. She was on chronic anticoagulation. She was transported by ambulance to the hospital where she was given a fluid bolus and stabilized. The case was discussed with Dr. Ware of cardiology initially and Dr. Mulligan of [facility] after. There was an initial thought that she may require transfer for pacemaker consideration. Dr. Mulligan recommended observing her here with a washout of metoprolol and diltiazem to see if her bradycardia improved. If this fails to improve then she would need to be transferred. She denies any recent dose increases in her rate limiting drugs. Nothing else has been ongoing recently. There has been no report of chest pain. She was chronic leg edema but this is actually better than usual. She did have a COVID and flu shot about 5 days ago. Hospital course: 03/29: Patient's heart rate has come up she is doing longer having near syncopal episodes of dizziness Review of systems: No fevers chills No chest pains palpitations Shortness for breath better no Nausea vomiting Physical exam: Alert in good spirits no acute distress HEENT unremarkable Heart sounds distant no murmurs appreciated Lungs sounds distant Extremities 2 + lower extremity edema with rubor chronic venous from upper calf down Neurologic nonfocal Echocardiogram previous admission 02/23: Normal left ventricular systolic function with borderline right ventricular dysfunction. Mild tricuspid regurgitation noted with no pulmonary hypertension. When compared with previous echocardiogram, there is slight decrease in the right ventricular contractility. Assessment and plan: Atrial flutter with bradycardia variable AV block present on admission, active. * Metoprolol adjusted from 100 mg twice a day in combination and diltiazem 240 for rate control to metoprolol 50 mg p.o. q.12 hours holding the diltiazem * CVA prophylaxis: Status post Watchman * Cardiology consultation appreciated with Dr. Ware expertise appreciated Compensated chronic diastolic Congestive heart failure, * Continue diuretics Coronary artery disease, present on admission, active. * Metoprolol, diltiazem, Jardiance, losartan, spironolactone Diabetes mellitus type 2, present on admission. Chronic. * Carbchoice diet, Jardiance, lispro correctional sliding scale and routine blood sugar checks. Hypertension,present on admission.Chronic. * Metoprolol, losartan, spironolactone and diltiazem Chronic medical conditions: * Presence of Watchman left atrial appendage closure device * Coronary artery disease involving autologous artery coronary bypass graft * Lumbar spondylosis * Low back pain * Spondylolisthesis at L4-L5 level * Ovarian cyst * Irregular menstrual cycle * Heavy menstrual period * Endometriosis * Gastritis * Esophageal spasm (~2022) * Heart failure * Atrial fibrillation (~2019) * Aortic stenosis (~2019) * Cardiac arrest (~2017) * Diabetes mellitus * BMI greater than 40 * History of epistaxis * Hypertension * Pigmented nevus * Skin neoplasm * COVID-19 DVT prophylaxis: * Enoxaparin Code status: * Full code * Her is her backup decision maker. Disposition: * Probable discharge home in the next 24-48 hours * Appreciate consensus decision with Cardiology Dr. Ware * No indication for home oxygen at this time 35 minutes were involved in the evaluation of this patient including direct patient evaluation discussion with the patient physical examination review of previous records discussion with Cardiology nursing and case management review of objective laboratory and imaging results Exam Vital Signs (past 8 hours): - 03/29/25 08:00 03/29/25 08:03 03/29/25 12:00 Temperature 97.1 F L 96.5 F L Pulse Rate 85 79 79 Respiratory Rate 18 19 Blood Pressure 124/62 124/72 127/67 Pulse Oximetry 97 97 Oxygen Flow Rate 0 0 Oxygen Delivery Method Room Air Oxygen Flow Rate 0 Objective Labs 03/28/25 09:05 03/28/25 09:05 Labs: Laboratory Results - last 24 hr 03/28/25 03/28/25 03/29/25 16:02 19:18 07:54 POC Whole Bld Glucose 281 H 243 H 262 H 03/29/25 11:50 POC Whole Bld Glucose 326 H PFS Medical History Acute on chronic systolic and diastolic heart failure, NYHA class 3 Presence of Watchman left atrial appendage closure device Coronary artery disease involving autologous artery coronary bypass graft Lumbar spondylosis Low back pain Spondylolisthesis at L4-L5 level Ovarian cyst Irregular menstrual cycle Heavy menstrual period Endometriosis Gastritis Esophageal spasm (~2022) Heart failure Atrial fibrillation (~2019) Aortic stenosis (~2019) Cardiac arrest (~2018) Diabetes mellitus BMI greater than 40 History of epistaxis Hypertension Pigmented nevus Skin neoplasm COVID-19 Surgical History Anesthesia Polyp of duodenum (~2023) Pacemaker (~2023) S/P triple vessel bypass (~2019) History of neck surgery (~2008) History of cataract removal with insertion of prosthetic lens (~2012) History of hysterectomy (~2002) Family History Father Hypertension Mother History of heart disease Hypertension Brother History of heart disease Hypertension Brother Hypertension Grandfather No problems noted. Grandmother History of heart disease History of heart attack Grandfather No problems noted. Grandmother Lupus Social History marital status: household members: spouse Smoking Status: Never smoker Type(s) of exercise: none and sedentary lifestyle Assessment & Plan Time-Based Coding :: [TOTAL MINUTES] spent with patient and on the chart (including review of chart, obtaining history, exam, reviewing outside data, placing orders, documenting exam and treatment plan, and counseling patient) on [DATE]. Quality VTE Deep Vein Thrombosis/Pulmonary Embolism Present on Admission: No
[2025-03-29] MEDS: METOPROLOL ER 50 MG TABLET PO ×2 (15:07→21:20)
[2025-03-29] MEDS: CALCIUM CARBONATE 500 MG TAB PO (15:10)
--- NOTE | 2025-03-29 15:55 | CM.DANOTE ---
Patient is a 69 yo female who was admitted INPT Status on 03/28/25 for AFIB. Pt has [employer] MCR under [employer] for insurance and her PCP is Raymond Levin. EMR was reviewed. Per MD, pt with multiple admits in Jan 2025 for similar and SOB and discharged back to her home with family. Per Cardiology, recommending observation of trops and labs and if they remain stable then likely just outpt f/u but if they do not improve then possible hospital transfer. Per RN, pt has remained stable and waiting to determine if further Echo needed. Pt has been mostly independent in the room but supportive spouse bedside assisting. SW met briefly bedside with pt and spouse and explained role and they remembered this DCP from prior admissions. They confirm they still live at [facility] long-term with pt's brother and then pt's son lives nearby as well. Pt has FWW for use and has previously declined HH in the past due to their living situation and lack of space. Spouse provides any assist needed. They do not anticipate needs at discharge and preference is to d/c back home when stable. COLEEN Dial Discharge Planning/Care Management CM Discharge Assessment Start: 03/28/25 10:25 Freq: Status: Active Protocol: Document 03/29/25 15:52 BF (Rec: 03/29/25 15:55 BF [id number]) Discharge Planning Assessment Assigned Discharge COLEEN Garcia Conservation Policy Analyst Provider Raymond Levin Insurance [employer] MCR,[employer] DPOA/Assigned spouse Kalyan Designee Name Contact Information [phone] Advance Directives? Yes: POLST - full code Advance Directives Yes on File History Provided By Patient,Significant Other,Medical Record Has Patient been No admitted in last 30 days? Comment Recently here in Jan 2025 Prior Living Other Arrangements Comment [facility] with spouse and brother Household Members spouse,family Type of Relies on Others transporation used prior to admit Independent with ADL No: no, but likely could be but does a lot for 's her Is patient alert and Yes oriented? Needs Assistance Managing Medications,Home Chores / Shopping With Caregiver for No Another DME Already Rented / FWW / Walker Owned Barriers to No Discharge Discharge Plan Home Transportation Spouse Arrangement Referrals Initiated None needed Whiteboard Updated Yes in Patient Room with name and ext. # of Hook Puller Review Status In Process Please Provide Date 03/29/25 Initial DC Assessment Was Performed Next Review Type Continued Stay Review
[2025-03-29] MEDS: METOPROLOL TARTRATE 5 MG/5 ML INJ IV ×2 (16:57→18:48)
[2025-03-29] MEDS: INSULIN GLARGINE 100 UNIT/ML 3ML PEN 10 UNIT SUBCUT (21:27)
[2025-03-30] VITALS: BP 99/47; PULSE 82; RESP 19; TEMP 36.4; O2SAT 97
[2025-03-30] MEDS: BENZONATATE 100 MG CAPSULE PO ×2 (03:35→08:21)
[2025-03-30] MEDS: CALCIUM CARBONATE 500 MG TAB PO ×2 (03:38→08:21)
[2025-03-30 04:00] VITALS: BP 113/65; PULSE 86; RESP 20; TEMP 36.3; O2SAT 97
[2025-03-30 08:00] VITALS: BP 108/89; PULSE 91; RESP 18; TEMP 35.6; O2SAT 97
[2025-03-30] MEDS: INSULIN LISPRO 100 UNIT/ML 3ML VIAL SUBCUT ×2 (08:08→12:35)
[2025-03-30] MEDS: LOSARTAN 50 MG TABLET PO (08:21)
[2025-03-30] MEDS: TORSEMIDE 10 MG TABLET 40 MG PO (08:21)
[2025-03-30] MEDS: METOPROLOL ER 50 MG TABLET PO (08:22)
[2025-03-30] MEDS: PANTOPRAZOLE DR 40 MG TABLET PO (08:22)
[2025-03-30] MEDS: SPIRONOLACTONE 25 MG TABLET 50 MG PO (08:22)
[2025-03-30] MEDS: ACETAMINOPHEN 325 MG TABLET 650 MG PO (08:29)
[2025-03-30 12:00] VITALS: BP 94/74; PULSE 82; RESP 18; TEMP 36.1; O2SAT 95
--- NOTE | 2025-03-30 12:49 | P.PN_ITS ---
Subjective Subjective Date Patient Seen: 03/30/25 Time Patient Seen: 12:50 Interval history: 69-year-old female with history of coronary artery disease status post bypass surgery status post Watchman status post coronary tree fibrillation type 2 diabetes hypertension hyperlipidemia base again admitted to the hospital with slow ventricular rate. She was treated in the hospital previous admission for atrial fibrillation decompensated acute on chronic systolic and diastolic heart failure with fluid overload and atrial fibrillation with rapid ventricular rate. She was discharged home on metoprolol 100 mg twice a day and diltiazem 360 mg twice a day. She came to the hospital with complaints of fatigue lethargy and dizziness with change of posture. She was admitted with a diagnosis of atrial fibrillation with slow ventricular rate. The dose of her AV angela blocking agents was reduced while she was in the hospital. She is getting ready to be discharged today. Exam Vital Signs (past 8 hours): - 03/30/25 08:00 03/30/25 12:00 Temperature 96.1 F L 97.0 F L Pulse Rate 91 H 82 Respiratory Rate 18 18 Blood Pressure 108/89 94/74 Pulse Oximetry 97 95 Oxygen Flow Rate 0 0 Oxygen Delivery Method Room Air Oxygen Flow Rate 0 Const General: cooperative and healthy appearing [facility] Head: normal to inspection Mouth: oral mucosae normal Eyes General: appearance normal, both eyes and all related structures Neck Neck: normal visual inspection Chest Chest: normal inspection of the chest Resp Effort & Inspection: normal respiratory effort Auscultation: clear to auscultation bilaterally Cardio Palpation: normal PMI Rate: other Rhythm: abnormal rhythm Other: irregularly irregular. Back/Spine/Pelvis Back: normal to inspection Neuro General: patient oriented x3 Extrem Right lower extremity: edema Left lower extremity: edema Other: Trace to mild bilateral. Objective Labs 03/28/25 09:05 03/28/25 09:05 Labs: Laboratory Results - last 24 hr 03/29/25 03/29/25 03/30/25 16:19 19:40 07:58 POC Whole Bld Glucose 246 H 237 H 286 H 03/30/25 11:58 POC Whole Bld Glucose 333 H PFSH Medical History Acute on chronic systolic and diastolic heart failure, NYHA class 3 Presence of Watchman left atrial appendage closure device Coronary artery disease involving autologous artery coronary bypass graft Lumbar spondylosis Low back pain Spondylolisthesis at L4-L5 level Ovarian cyst Irregular menstrual cycle Heavy menstrual period Endometriosis Gastritis Esophageal spasm (~2022) Heart failure Atrial fibrillation (~2019) Aortic stenosis (~2019) Cardiac arrest (~2018) Diabetes mellitus BMI greater than 40 History of epistaxis Hypertension Pigmented nevus Skin neoplasm COVID-19 Surgical History Anesthesia Polyp of duodenum (~2023) Pacemaker (~2023) S/P triple vessel bypass (~2019) History of neck surgery (~2008) History of cataract removal with insertion of prosthetic lens (~2012) History of hysterectomy (~2002) Family History Father Hypertension Mother History of heart disease Hypertension Brother History of heart disease Hypertension Brother Hypertension Grandfather No problems noted. Grandmother History of heart disease History of heart attack Grandfather No problems noted. Grandmother Lupus Social History marital status: household members: spouse and family Smoking Status: Never smoker Type(s) of exercise: none and sedentary lifestyle Assessment & Plan Assessment and plan (1) Bradycardia: Status: Acute (2) Acute on chronic systolic and diastolic heart failure, NYHA class 3: Status: Acute (3) Atrial flutter: Qualifiers: Atrial flutter type: unspecified Qualified Code(s): I48.92 - Unspecified atrial flutter Status: Acute Plan Patient is hemodynamically stable with heart rate and blood pressure in the acceptable range. Heart rate is 80-110 . She can go home with metoprolol succinate 50 mg twice daily and Cardizem 240 mg daily long acting. Patient is not a candidate for anticoagulation due to Watchman. Patient instructed to follow up with me in the office in 2 weeks. Assessment & Plan narrative: Metoprolol succinate 50 mg twice daily Cardizem CD 240 mg p.o. daily No anticoagulation Follow-up in the office. Time-Based Coding :: [TOTAL MINUTES] spent with patient and on the chart (including review of chart, obtaining history, exam, reviewing outside data, placing orders, documenting exam and treatment plan, and counseling patient) on [DATE]. Quality VTE Deep Vein Thrombosis/Pulmonary Embolism Present on Admission: No
--- NOTE | 2025-03-30 13:14 | P.DS_ITS ---
History of Present Illness History of Present Illness Date Patient Seen: 03/30/25 Chief complaint: Arrhythmia Narrative: Chief complaint: Lightheaded dizziness near syncope secondary to bradycardia with variable AV block underlying rhythm atrial flutter History of present illness: 03/28: 69-year-old female with a history of chronic systolic heart failure, atrial fibrillation, a Watchman procedure, and diabetes. She would 3 episodes of feeling extremely lightheaded today. After the 3rd episode her called 911 and they found her to have a bradycardia in the mid 30s. She takes metoprolol 100 b.i.d. and diltiazem daily for rate control. She was on chronic anticoagulation. She was transported by ambulance to the hospital where she was given a fluid bolus and stabilized. The case was discussed with Dr. Ware of cardiology initially and Dr. Mulligan of [facility] after. There was an initial thought that she may require transfer for pacemaker consideration. Dr. Mulligan recommended observing her here with a washout of metoprolol and diltiazem to see if her bradycardia improved. If this fails to improve then she would need to be transferred. She denies any recent dose increases in her rate limiting drugs. Nothing else has been ongoing recently. There has been no report of chest pain. She was chronic leg edema but this is actually better than usual. She did have a COVID and flu shot about 5 days ago. Hospital course: 03/29: Patient's heart rate has come up she is doing longer having near syncopal episodes of dizziness 03/30: Heart rate stable no Sx discharge to home Review of systems: No fevers chills No chest pains palpitations Shortness for breath better no Nausea vomiting Physical exam: Alert in good spirits no acute distress HEENT unremarkable Heart sounds distant no murmurs appreciated Lungs sounds distant Extremities 2 + lower extremity edema with rubor chronic venous from upper calf down Neurologic nonfocal Echocardiogram previous admission 02/23: Normal left ventricular systolic function with borderline right ventricular dysfunction. Mild tricuspid regurgitation noted with no pulmonary hypertension. When compared with previous echocardiogram, there is slight decrease in the right ventricular contractility. Assessment and plan: Atrial flutter with bradycardia variable AV block present on admission, active. * Metoprolol adjusted from 100 mg twice a day in combination and diltiazem 240 for rate control to metoprolol 75 mg p.o. q.12 hours holding the diltiazem * CVA prophylaxis: Status post Watchman * Cardiology consultation appreciated with Dr. Ware expertise appreciated Compensated chronic diastolic Congestive heart failure, * Continue diuretics Coronary artery disease, present on admission, active. * Metoprolol, diltiazem, Jardiance, losartan, spironolactone Diabetes mellitus type 2, present on admission. Chronic * Carbchoice diet, Jardiance, lispro correctional sliding scale and routine blood sugar checks. Hypertension,present on admission.Chronic. * Metoprolol, losartan, spironolactone and diltiazem Chronic medical conditions: * Presence of Watchman left atrial appendage closure device * Coronary artery disease involving autologous artery coronary bypass graft * Lumbar spondylosis * Low back pain * Spondylolisthesis at L4-L5 level * Ovarian cyst * Irregular menstrual cycle * Heavy menstrual period * Endometriosis * Gastritis * Esophageal spasm (~2022) * Heart failure * Atrial fibrillation (~2019) * Aortic stenosis (~2019) * Cardiac arrest (~2017) * Diabetes mellitus * BMI greater than 40 * History of epistaxis * Hypertension * Pigmented nevus * Skin neoplasm * COVID-19 DVT prophylaxis: * Enoxaparin Code status: * Full code * Her is her backup decision maker. Disposition: * Probable discharge home in the next 24-48 hours * Appreciate consensus decision with Cardiology Dr. Ware * No indication for home oxygen at this time 35 minutes were involved in the evaluation of this patient including direct patient evaluation discussion with the patient physical examination review of previous records discussion with Cardiology nursing and case management review of objective laboratory and imaging results Discharge Providers Provider Date of admission: 03/28/25 10: Discharge Date: 03/30/25 Primary care physician: Raymond Levin MD Discharge provider: Raghavendra Dunn MD Exam Vital Signs (past 8 hours): - 03/30/25 08:00 03/30/25 12:00 Temperature 96.1 F L 97.0 F L Pulse Rate 91 H 82 Respiratory Rate 18 18 Blood Pressure 108/89 94/74 Pulse Oximetry 97 95 Oxygen Flow Rate 0 0 Oxygen Delivery Method Room Air Oxygen Flow Rate 0 Objective Labs 03/28/25 09:05 03/28/25 09:05 Labs: Laboratory Results - last 24 hr 03/29/25 03/29/25 03/30/25 16:19 19:40 07:58 POC Whole Bld Glucose 246 H 237 H 286 H 03/30/25 11:58 POC Whole Bld Glucose 333 H PFSH Medical History Acute on chronic systolic and diastolic heart failure, NYHA class 3 Presence of Watchman left atrial appendage closure device Coronary artery disease involving autologous artery coronary bypass graft Lumbar spondylosis Low back pain Spondylolisthesis at L4-L5 level Ovarian cyst Irregular menstrual cycle Heavy menstrual period Endometriosis Gastritis Esophageal spasm (~2022) Heart failure Atrial fibrillation (~2019) Aortic stenosis (~2019) Cardiac arrest (~2017) Diabetes mellitus BMI greater than 40 History of epistaxis Hypertension Pigmented nevus Skin neoplasm COVID-19 Surgical History Anesthesia Polyp of duodenum (~2023) Pacemaker (~2023) S/P triple vessel bypass (~2019) History of neck surgery (~2008) History of cataract removal with insertion of prosthetic lens (~2012) History of hysterectomy (~2002) Family History Father Hypertension Mother History of heart disease Hypertension Brother History of heart disease Hypertension Brother Hypertension Grandfather No problems noted. Grandmother History of heart disease History of heart attack Grandfather No problems noted. Grandmother Lupus Social History marital status: household members: spouse and family Smoking Status: Never smoker Type(s) of exercise: none and sedentary lifestyle Discharge Plan Discharge Plan Patient Disposition: Home Discharge orders & Medications Prescriptions: New metoprolol tartrate 75 mg tablet 75 mg PO BID Qty: 60 3RF diltiazem HCl 240 mg capsule,extended release 24hr 240 mg PO DAILY Qty: 30 3RF Continued fluticasone propionate 50 mcg/actuation spray,suspension 1 spray intranasal BID PRN (Reason: allergy symptoms) omeprazole 20 mg capsule,delayed release(DR/EC) 20 mg PO BID potassium chloride 20 mEq tablet,ER particles/crystals 20 meq PO BID metformin 500 mg tablet extended release 24 hr 500 mg PO ONCE PM benzonatate 200 mg capsule 200 mg PO 3XD PRN (Reason: cough) polyethylene glycol 3350 17 gram/dose powder 17 g PO BID losartan 50 mg Tablet 50 mg PO BID Qty: 60 2RF Jardiance 10 mg tablet 10 mg PO DAILY Qty: 30 2RF oxycodone 5 mg capsule 5 mg PO Q8H PRN (Reason: pain) Qty: 14 0RF spironolactone 50 mg tablet 50 mg PO BID Qty: 60 2RF torsemide 20 mg tablet 40 mg PO QAM Qty: 60 2RF ondansetron HCl 4 mg tablet 4 mg PO BID PRN (Reason: nausea/vomiting) pantoprazole 40 mg tablet,delayed release (DR/EC) 40 mg PO BID pregabalin 75 mg capsule 75 mg PO BID Discontinued diltiazem HCl 360 mg capsule,extended release 24hr 360 mg PO DAILY metoprolol succinate 100 mg tablet extended release 24 hr 100 mg PO BID Qty: 60 2RF diltiazem HCl 360 mg tablet extended release 24 hr 360 mg PO DAILY Follow up/Referrals: Raymond Levin MD [Primary Care Provider, Family Practice] Visit Report/Discharge Packet Stand Alone Forms: Patient Portal/API, Stroke Signs & Symptoms Discharge Data Primary Care Provider: Raymond Levin Quality VTE Deep Vein Thrombosis/Pulmonary Embolism Present on Admission: No
--- NOTE | 2025-03-30 13:36 | CM.DPC ---
DCP Discharge Home Per MD and Primer Charger, pt medically stable to discharge home today with ongoing outpt f/u and no identified barriers to discharge. Pt's supportive spouse has remained bedside and assists pt as needed and able to provide transport home today. No further SW needs at this time. Radha Shukla MSW
--- NOTE | 2025-03-30 14:36 | PC.NURSE ---
Patient is A&OX4, VSS, afebrile on RA. She is evaluated by hospitalist and grocery caddy and cleared for discharge home today with medication changes. She acknowledges understanding of medications and plan to follow up with cardiology and PCP. She is escorted via w/ch to private vehicle with spouse for discharge home today at approximately 1430 with all of her personal belongings.
== END 2025-03-30 14:30 | disposition home or self-care (01) | DRG 308 ==
LOC: ED 08:50 → AC 11:08 → ICU 11:51 → AC 13:31
PROVIDERS: Admitting Provider Hospitalist; Emergency Provider Student in an Organized Health Care Education/Training Program; PCP Family Medicine; Referring Provider Student in an Organized Health Care Education/Training Program; Visit Provider Hospitalist
DX: I48.92 Unspecified atrial flutter (principal); I50.43 Acute on chronic combined systolic (congestive) and diastolic (congestive) heart failure; I11.0 Hypertensive heart disease with heart failure; I48.91 Unspecified atrial fibrillation; R00.1 Bradycardia, unspecified; I35.0 Nonrheumatic aortic (valve) stenosis; E11.9 Type 2 diabetes mellitus without complications; I25.10 Atherosclerotic heart disease of native coronary artery without angina pectoris; I44.30 Unspecified atrioventricular block; Z79.84 Long term (current) use of oral hypoglycemic drugs; Z95.1 Presence of aortocoronary bypass graft; Z95.818 Presence of other cardiac implants and grafts; Z79.01 Long term (current) use of anticoagulants; Z86.74 Personal history of sudden cardiac arrest
CPT/HCPCS: 36415; 80053; 82962; 83735; 84443; 84484; 85025; 85379; 93005; 99282; 99284; J1815

== ENCOUNTER 2025-05-23 15:03 | Emergency (ER) | payer MEDICARE, SELFPAY ==
[2025-03-28 12:17] VITALS: BMI 42.0
[2025-05-23] VITALS (8 sets, daily range): BP systolic 134–155; BP diastolic 60–77; PULSE 92–109; RESP 13–23; TEMP 36.8; O2SAT 96–98; BMI 41.1
--- NOTE | 2025-05-23 15:20 | ED.ABDPAIN ---
HPI - Abdominal Pain General Chief Complaint: Abdominal Pain Stated Complaint: Abdominal Pain/Rectal Bleeding Time Seen by Provider: 05/23/25 15:07 Source: patient and EMS Mode of arrival: EMS History of Present Illness HPI narrative: Patient brought here by for left lower quadrant pain/left upper quadrant pain for the past 3 days. Off and on dizziness since then. Had 6 episodes of bright red at per rectum since yesterday. No chest pain no back pain. History diverticulosis diverticulitis. Does not recall last colonoscopy. She is not on any blood thinners. No urinary complaints. Has had morphine for pain control in the past. Related Data Home Medications ?Medication ?Instructions ?Recorded ?Confirmed fluticasone propionate 50 1 spray intranasal BID PRN allergy 07/04/24 03/28/25 mcg/actuation nasal symptoms spray,suspension omeprazole 20 mg capsule,delayed 20 mg PO BID 07/04/24 03/28/25 release potassium chloride 20 mEq 20 meq PO BID 07/04/24 03/28/25 tablet,extended release(part/cryst) metformin 500 mg tablet,extended 500 mg PO ONCE PM 12/04/24 03/28/25 release 24 hr benzonatate 200 mg capsule 200 mg PO 3XD PRN cough 01/30/25 03/28/25 polyethylene glycol 3350 17 17 g PO BID 01/30/25 03/28/25 gram/dose oral powder ondansetron HCl 4 mg tablet 4 mg PO BID PRN nausea/vomiting 03/28/25 03/28/25 pantoprazole 40 mg tablet,delayed 40 mg PO BID 03/28/25 03/28/25 release pregabalin 75 mg capsule 75 mg PO BID 03/28/25 03/28/25 Previous Rx's ?Medication ?Instructions ?Recorded empagliflozin 10 mg tablet 10 mg PO DAILY #30 tabs 02/01/25 (Jardiance) losartan 50 mg tablet 50 mg PO BID #60 tabs 02/01/25 oxycodone 5 mg capsule 5 mg PO Q8H PRN pain #14 caps 02/01/25 spironolactone 50 mg tablet 50 mg PO BID #60 tabs 02/25/25 torsemide 20 mg tablet 40 mg (2 x 20 mg) PO QAM #60 tabs 02/25/25 diltiazem HCl 240 mg 240 mg PO DAILY #30 caps 03/30/25 capsule,extended release 24 hr metoprolol succinate 50 mg 50 mg PO BID #60 tabs 03/30/25 tablet,extended release 24 hr amoxicillin 875 mg-potassium 1 tab PO BID #14 tabs 05/23/25 clavulanate 125 mg tablet docusate sodium 100 mg capsule 100 mg PO BID #20 caps 05/23/25 (Colace) morphine 15 mg tablet,extended 15 mg PO Q12H #8 tabs 05/23/25 release (MS Contin) naloxone 4 mg/actuation nasal 4 mg intranasal Q2M PRN opioid 05/23/25 spray (Narcan) overdose #2 ea ondansetron 4 mg disintegrating 4 mg PO Q6H PRN nausea and 05/23/25 tablet vomiting #20 tabs Allergies Allergy/AdvReac Type Severity Reaction Status Date / Time epinephrine (EPINEPHRINE) Allergy Unknown doesn't Verified 05/23/25 15:13 work lisinopril Allergy Unknown Stroke Verified 05/23/25 15:13 hydromorphone (From Dilaudid) AdvReac Severe Vomiting Verified 05/23/25 15:13 Xoyriit-QXH-FaF Reductase AdvReac Severe Joint Pain Verified 05/23/25 15:13 Inhibitor codeine (CODEINE) AdvReac Unknown Hives Verified 05/23/25 15:13 gabapentin AdvReac Unknown Verified 05/23/25 15:13 naproxen AdvReac Unknown Verified 05/23/25 15:13 Review of Systems Review of Systems Narrative: GENERAL: Negative chills, fatigue, malaise, fever, sweats. HEENT: Negative sinus pain, ear pain, sore throat RESPIRATORY: Negative dyspnea, cough CARDIOVASCULAR: Negative chest pain, palpitations GASTROINTESTINAL: Negative vomiting, positive rectal bleeding, nausea, abdominal pain : Negative dysuria, frequency, hematuria MUSCULOSKELETAL: Negative muscle or bony pain SKIN: Negative rash, skin lesions NEUROLOGIC: Negative weakness, numbness, positive dizzy ROS Unobtainable: All systems reviewed & are unremarkable except as noted in HPI and below Patient History Medical History Acute on chronic systolic and diastolic heart failure, NYHA class 3 Presence of Watchman left atrial appendage closure device Coronary artery disease involving autologous artery coronary bypass graft Lumbar spondylosis Low back pain Spondylolisthesis at L4-L5 level Ovarian cyst Irregular menstrual cycle Heavy menstrual period Endometriosis Gastritis Esophageal spasm (~2022) Heart failure Atrial fibrillation (~2019) Aortic stenosis (~2019) Cardiac arrest (~2018) Diabetes mellitus BMI greater than 40 History of epistaxis Hypertension Pigmented nevus Skin neoplasm COVID-19 Surgical History Anesthesia Polyp of duodenum (~2023) Pacemaker (~2023) S/P triple vessel bypass (~2019) History of neck surgery (~2008) History of cataract removal with insertion of prosthetic lens (~2012) History of hysterectomy (~2002) Family History Father Hypertension Mother History of heart disease Hypertension Brother History of heart disease Hypertension Brother Hypertension Grandfather No problems noted. Grandmother History of heart disease History of heart attack Grandfather No problems noted. Grandmother Lupus Social History marital status: household members: spouse and family Type(s) of exercise: none and sedentary lifestyle alcohol intake frequency: a few times a week Alcohol type: wine Exam Narrative Exam Narrative: GENERAL: in no distress, not toxic not dyspneic HEAD: Normocephalic. EYES: Pupils equal round pink conjunctiva ENT: Mucous membranes moist. NECK: Trachea midline. CARDIOVASCULAR: Irregularly irregular brisk cap refills RESPIRATORY: Clear to auscultation. Breath sounds equal bilaterally. No wheezes, rales, or rhonchi. GASTROINTESTINAL: Abdomen soft, reproducible left upper quadrant and left lower quadrant tenderness. No guarding or rebound. Bowel sounds are present. No peritoneal signs. No CVA tenderness. BACK: No flank tenderness. EXTREMITIES: No gross deformities. NEURO: AOx4. Clear speech SKIN: Warm and dry PSYCH: Not anxious, is cooperative Initial Vital Signs Initial Vital Signs: Vital Signs Pulse Rate 97 H 05/23/25 15:07 Pulse Oximetry 98 05/23/25 15:07 Course Orders Ordered: ED Orders 05/23/25 15:15 Complete Blood Count AUTO DIFF Stat Comprehensive Metabolic Panel Stat PT [Prothrombin Time INR] Stat PTT Partial Thromboplastin Shiva Stat Troponin & CK Cardiac Panel Stat Type and Screen Stat 05/23/25 15:19 CT abdomen pelvis w con Stat 05/23/25 15:48 EKG-12 Lead Stat Discontinued Medications Amoxicillin/Clavulanate Potassium (Amoxicillin/Clav 875/125 Mg) 1 tab PO NOW ONE Stop: 05/23/25 17:06 Last Admin: 05/23/25 17:08 Dose: 1 tab Documented By: EMELY Sodium Chloride (Normal Saline 0.9%) 250 mls @ 1,000 mls/hr IV NOW ONE Stop: 05/23/25 15:33 Last Infusion: 05/23/25 16:11 Dose: Infused Documented By: SBF(2) Admin: 05/23/25 15:38 Dose: 1,000 mls/hr Documented By: SBF(2) Morphine Sulfate (Morphine 4 Mg/Ml Inj) 4 mg IV Q2HR PRN PRN Reason: pain Last Admin: 05/23/25 17:06 Dose: 4 mg Documented By: Admin: 05/23/25 15:39 Dose: 4 mg Documented By: LATONIAF(2) Ondansetron HCl (Ondansetron 4 Mg/2 Ml Inj) 4 mg IV NOW ONE Stop: 05/23/25 15:18 Last Admin: 05/23/25 15:39 Dose: 4 mg Documented By: LATONIAF(2) Vital Signs Vital signs: Vital Signs - 8 hr 05/23/25 15:07 05/23/25 15:08 05/23/25 15:08 Temperature Pulse Rate 97 H 100 H Respiratory Rate Blood Pressure 134/77 Pulse Oximetry 98 98 Oxygen Delivery Method 05/23/25 15:13 05/23/25 15:30 05/23/25 15:33 Temperature 98.3 F Pulse Rate 92 H 101 H Respiratory Rate 18 Blood Pressure 134/77 144/60 H Pulse Oximetry 98 97 Oxygen Delivery Method Room Air 05/23/25 15:33 05/23/25 15:48 05/23/25 15:48 Temperature Pulse Rate 109 H 97 H Respiratory Rate 23 Blood Pressure 144/73 H Pulse Oximetry 98 97 Oxygen Delivery Method Room Air 05/23/25 16:00 05/23/25 16:00 05/23/25 16:30 Temperature Pulse Rate 95 H 95 H Respiratory Rate 21 13 Blood Pressure 155/70 H Pulse Oximetry 97 96 Oxygen Delivery Method Room Air MDM - Abdominal Pain Lab Data 05/23/25 15:15 05/23/25 15:15 Labs: Lab Results 05/23/25 Range/Units 15:15 WBC 11.2 H (4.5-11.0) X10^3/uL RBC 4.07 (4.0-5.2) X10^6/uL Hgb 11.4 L (12.0-16.0) g/dL Hct 34.8 L (36-46) % MCV 85.5 (80-100) fL MCH 28.0 (26-34) PG MCHC 32.8 (30-36) % RDW 19.4 H (11.6-14.8) % Plt Count 456 H (150-400) X10^3/uL Neut % (Auto) 73.9 (50-75) % Lymph % (Auto) 18.4 L (25-40) % [place] % (Auto) 6.5 (3-14) % Eos % (Auto) 0.6 L (2-4) % Baso % (Auto) 0.6 (0-2) % Neut # (Auto) 8300 H (5790-1375) /uL Lymph # (Auto) 2100 (1555-7026) /uL [place] # (Auto) 700 (0-900) /uL Eos # (Auto) 100 (0-450) /uL Baso # (Auto) 100 (0-100) /uL PT 11.9 (9.4-12.5) SECONDS INR 1.1 (0.9-1.3) APTT 28 (25.1-36.5) SECONDS Sodium 137 (137-145) mmol/L Potassium 4.5 (3.4-5.1) mmol/L Chloride 102 (98-107) mmol/L Carbon Dioxide 21 L (22-32) mmol/L BUN 25 H (7-17) mg/dL Creatinine 1.47 H (0.52-1.04) mg/dL Estimated GFR 38 L (>60) mL/min BUN/Creatinine Ratio 17.0 (6-22) Glucose 275 H (70-99) mg/dL Calcium 9.0 (8.4-10.2) mg/dL Total Bilirubin 0.6 (0.2-1.3) mg/dL AST 29 (14-36) IU/L ALT 21 (<35) IU/L Alkaline Phosphatase 134 H (38-126) U/L Total Creatine Kinase 56 (30-135) U/L Troponin I 0.015 (0.01-0.034) ng/mL Total Protein 8.9 H (6.3-8.2) g/dL Albumin 4.5 (3.5-5.0) g/dL Globulin 4.4 H (1.7-4.1) g/dL Albumin/Globulin Ratio 1.0 (1.0-2.8) Blood Type O Negative Antibody Screen Negative Imaging Data CT scan - abdomen/pelvis: Radiologist's Impression: [address] [address] [address] Scan Report Signed Patient: Jessenia Peres MR#: [id number] : 1955 Acct:[id number] Age/Sex: 69 / F Date of Service: 05/23/25 Loc: ED Accession Number: [id number] Procedure: CT abdomen pelvis w con Ordering Provider: Adryan Rivera MD PROCEDURE: CT ABDOMEN PELVIS W CON INDICATIONS: Left lower quadrant pain TECHNIQUE: After the administration of intravenous contrast, axial sections acquired from the lung bases to the pubic symphysis. Coronal and sagittal reformats were performed. For radiation dose reduction, the following was used: automated exposure control, adjustment of mA and/or kV according to patient size. COMPARISON: [facility], CT, CT ABDOMEN PELVIS WO CON, 01/19/2025, 5:04. [facility], CR, XR CHEST 1V, 02/22/2025, 14:56. [facility], CT, CT ABDOMEN PELVIS W CON, 12/22/2024, 12:21. FINDINGS: Image quality: Diagnostic. Lower Chest: Remote CABG. Mild cardiomegaly. Extreme lung bases are clear. ABDOMEN: Liver: No solid mass. Gallbladder: Absent Biliary ducts: Prominent extrahepatic duct post remote cholecystectomy. No obstructing mass identified. Pancreas: No ductal dilation. Spleen: Size is within normal limits. Adrenal Glands: No adrenal nodules. Kidneys and Ureters: No hydronephrosis. No solid mass. No complex renal cystic lesion which requires follow up. Stomach and Bowel: Normal colonic caliber, without significant wall thickening. There is acute diverticulitis present involving the junction between the descending colon and sigmoid without free air, free fluid, or abscess cavity. Peritoneum: No abnormal intraperitoneal fluid. No free air. Ventral Wall: No significant ventral hernia. Abdominal Nodes: No retroperitoneal or mesenteric adenopathy by size criteria. Vessels: Aorta and inferior vena cava are normal in size. Dense abdominal aortic calcifications and common iliac artery calcifications. PELVIS: Pelvic Organs: Uterus is surgically absent. No adnexal masses.. Bladder: No bladder wall thickening, accounting for underdistention. Pelvic Nodes: No enlarged lymph nodes. Miscellaneous: No inguinal hernias are seen. Bones: No aggressive osseous abnormality. IMPRESSION: 1. Acute non complicated diverticulitis. 2. Remote cholecystectomy and hysterectomy. 3. Peripheral vascular disease. Dictated by: London Albarran M.D. on 05/23/2025 at 16:35 Approved by: London Albarran M.D. on 05/23/2025 at 16:39 MDM Narrative Medical decision making narrative: Patient brought here by for left lower quadrant pain/left upper quadrant pain for the past 3 days. Off and on dizziness since then. Had 6 episodes of bright red at per rectum since yesterday. No chest pain no back pain. History diverticulosis diverticulitis. Does not recall last colonoscopy. She is not on any blood thinners. No urinary complaints. Has had morphine for pain control in the past MDM After history and exam, morphine Zofran normal saline CT abdomen pelvis CBC CMP type and strain PT INR PTT Differential considered: Includes but not limited to diverticulitis diverticulosis colitis upper GI bleed mesenteric ischemia Medical records reviewed: No recent visit for this complaint Lab Test results independently reviewed as above. Pertinent findings: WBC 11.2 hemoglobin 11.4 platelets 456 INR 1.1 BUN 25 creatinine 1.47 GFR 38 troponin 0.015 EKG atrial fibrillation rate 91 Imaging studies independently reviewed: Acute diverticulitis Consultations: Referral for General surgery for outpatient colonoscopy provided. Re-evaluations: 5:00 p.m.. Updated patient and results. Diverticulitis diagnosis. She states she can only take morphine for prescription. Return precautions reviewed. She would like to try home observation with antibiotics and pain medication. Narcan prescription provided. They desire discharge home. They state her atrial fibrillation, she has a Watchman. Heart rate will very. This is not unusual. She is not on blood thinners. Discussion: IV contrast used for CT imaging. Appropriate for discharge home. Exam is reassuring. Patient states he can only take morphine prescription for pain control. Return precautions reviewed. Narcan prescription provided. They desire discharge home. Laboratory studies are reassuring. H&H. Denies any bleeding here. Diagnosis: Acute diverticulitis Discharge Plan Departure Patient Disposition: Home Clinical Impression: Diverticulitis Instructions: DI for Diverticulitis Activity Restrictions/Additional Instructions: Your pain and symptoms are due to diverticulitis. Colon. Prescription for antibiotic and pain medication has been provided for you. No driving operating machinery today or when taking prescribed pain medication. Please see your family doctor next week for re-evaluation. Please call provided general surgery office on Monday for scratching colonoscopy. Your blood work is otherwise reassuring. Prescription for morphine has been provided for you. Prescription for Narcan has been provided for you, to be used if any trouble breathing or any signs of overdose. Prescriptions: New ondansetron 4 mg tablet,disintegrating 4 mg PO Q6H PRN (Reason: nausea and vomiting) Qty: 20 0RF amoxicillin-pot clavulanate 875-125 mg tablet 1 tab PO BID Qty: 14 0RF morphine [MS Contin] 15 mg tablet extended release 15 mg PO Q12H Qty: 8 0RF naloxone [Narcan] 4 mg/actuation spray,non-aerosol 4 mg intranasal Q2M PRN (Reason: opioid overdose) Qty: 2 0RF Rx Instructions: spray 1 dose into ONE nostril; alternate nostrils w each dose until help arrives docusate sodium [Colace] 100 mg capsule 100 mg PO BID Qty: 20 0RF No Action fluticasone propionate 50 mcg/actuation spray,suspension 1 spray intranasal BID PRN (Reason: allergy symptoms) omeprazole 20 mg capsule,delayed release(DR/EC) 20 mg PO BID potassium chloride 20 mEq tablet,ER particles/crystals 20 meq PO BID metformin 500 mg tablet extended release 24 hr 500 mg PO ONCE PM benzonatate 200 mg capsule 200 mg PO 3XD PRN (Reason: cough) polyethylene glycol 3350 17 gram/dose powder 17 g PO BID losartan 50 mg Tablet 50 mg PO BID Qty: 60 2RF Jardiance 10 mg tablet 10 mg PO DAILY Qty: 30 2RF oxycodone 5 mg capsule 5 mg PO Q8H PRN (Reason: pain) Qty: 14 0RF spironolactone 50 mg tablet 50 mg PO BID Qty: 60 2RF torsemide 20 mg tablet 40 mg PO QAM Qty: 60 2RF ondansetron HCl 4 mg tablet 4 mg PO BID PRN (Reason: nausea/vomiting) pantoprazole 40 mg tablet,delayed release (DR/EC) 40 mg PO BID pregabalin 75 mg capsule 75 mg PO BID diltiazem HCl 240 mg capsule,extended release 24hr 240 mg PO DAILY Qty: 30 3RF metoprolol succinate 50 mg tablet extended release 24 hr 50 mg PO BID Qty: 60 2RF Referrals: Jeff Woo MD [Physician, General Surgery] Raymond Levin MD [Primary Care Provider, Family Practice] Stand Alone Forms: Patient Portal/API
[2025-05-23 15:28] LABS: Add Manual Diff / Slide Review NO; Hematocrit 34.8 % (36-46); Hemoglobin 11.4 g/dL (12.0-16.0); Lymphocytes Absolute Auto 2100 /uL (1100-4500); Mean Corpuscular HGB Conc 32.8 % (30-36); Mean Corpuscular Hemoglobin 28.0 PG (26-34); Mean Corpuscular Volume 85.5 fL (80-100); Platelet Count 456 X10^3/uL (150-400)
[2025-05-23] MEDS: SODIUM CHLORIDE 0.9% 250 ML 1000 ML IV (15:38)
[2025-05-23 15:39] LABS: INR 1.1 (0.9-1.3); Prothrombin Time 11.9 SECONDS (9.4-12.5)
[2025-05-23] MEDS: ONDANSETRON 4 MG/2 ML INJ IV (15:39)
[2025-05-23] MEDS: MORPHINE 4 MG/ML INJ IV ×2 (15:39→17:06)
[2025-05-23 15:42] LABS: PTT Partial Thromboplastin Tim 28 SECONDS (25.1-36.5)
[2025-05-23 15:43] LABS: Alanine Aminotransferase 21 IU/L (<35); Albumin 4.5 g/dL (3.5-5.0); Albumin Globulin Ratio 1.0 (1.0-2.8); Alkaline Phosphatase 134 U/L (38-126); Blood Urea Nitrogen 25 mg/dL (7-17); Calcium 9.0 mg/dL (8.4-10.2); Carbon Dioxide 21 mmol/L (22-32); Chloride 102 mmol/L (98-107); Estimated Glomerular Filt Rate 38 mL/min (>60); Globulin 4.4 g/dL (1.7-4.1); Glucose 275 mg/dL (70-99); HEMOLYSIS 35 (0-50); Potassium 4.5 mmol/L (3.4-5.1); Sodium 137 mmol/L (137-145); Total Protein 8.9 g/dL (6.3-8.2)
--- NOTE | 2025-05-23 15:48 | EKG_ITS ---
[address] [address] Test Date: 2025-05-23 Pat Name: Jessenia Peres Department: 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
--- NOTE | 2025-05-23 15:49 | PC.NURSE ---
Patient reports abdominal pain is wrapping up and around to her LEFT upper chest. She also reports that her RIGHT hand had some numbness to it a few days ago when she woke up and took about 5 mins to come back. States she was concerned because this happened prior to her last heart attack. Provider Nicole made aware. New verbal order for STAT EKG. RT called for STAT EKG.
[2025-05-23 16:01] LABS: Creatine Kinase 56 U/L (30-135)
[2025-05-23 16:14] LABS: Troponin I 0.015 ng/mL (0.01-0.034)
[2025-05-23] MEDS: AMOXICILLIN/CLAV 875/125 MG 1 TAB PO (17:08)
== END 2025-05-23 17:51 | disposition home or self-care (01) ==
PROVIDERS: Emergency Provider Emergency Medicine; PCP Family Medicine
DX: K57.33 Diverticulitis of large intestine without perforation or abscess with bleeding (principal)
CPT/HCPCS: 36415; 74177; 80053; 82550; 84484; 85025; 85610; 85730; 86850; 86900; 86901; 93005; 96374; 96375; 99284; J2272; J2405; J7050; Q9967